=== PATIENT | male | born 1955 | race Caucasian/White ===

== ENCOUNTER 2025-05-28 10:24 | Outpatient (AMB) | payer MEDICARE, SELFPAY ==
--- NOTE | 2025-05-28 10:35 | A.OFFVIS_ITS ---
Intake Visit Reasons: 6m Allergies simvastatin Allergy (Unknown, Verified 05/21/25 08:20) Unknown HPI Comments Details: 70 yo man with colorectal cancer, and h/o bladder cancer treated with chemo many years ago. After chemotherapy, he developed painful neuropathy with symptoms of cramping and stabbing severe pain all over his body. He has been taking baclofen and gabapentin for control of symptoms. He also was prescribed clonazepam for a sleep disorder and carbidopa/levodopa for head bobbing. He was getting these prescriptions from Dr. Lopez before he retired. Dr. Lopez also treated headaches with Botox but the injections were done in right SCM and left splenius capitis area (like for cervical dystonia). 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 HEENT:?No headache, vision changes, hearing loss, nasal congestion, sore throat. Neurological:?No dizziness, syncope, seizures, numbness, tingling, weakness, tremors, memory loss. Psychiatric:?No anxiety, depression, mood swings, sleep disturbance, or hallucinations. Endocrine:?No heat/cold intolerance, polydipsia, polyuria, or hair/skin changes. Hematologic/Lymphatic:?No easy bruising, bleeding, or lymphadenopathy. Integumentary (Skin):?No rash, lesions, itching, or color changes. ? 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
--- OUTSIDE RECORDS SUMMARY | 2025-05-28 11:04 | XMS_ITS | Clinical Summary ---
Author Organization [facility] Address [address] [address] Phone Care Team Providers Care Machine Deburrer Name Role Phone Ken Mendenhall MD Primary Care Provider Allergies Active Allergy Reactions Criticality Noted Date Comments Simvastatin Musculoskeletal Pain 02/11/2018 Stiffness Medications gabapentin (NEURONTIN) 300 MG capsule Take 300 mg by mouth 2 (two) times a day. Active carbidopa-levodopa (SINEMET) 25-100 mg per tablet Take 1 tablet by mouth 3 (three) times a day. Active baclofen (LIORESAL) 20 MG tablet Take 20 mg by mouth 2 (two) times a day. Active clonazePAM (KLONOPIN) 0.5 MG tablet Take 1 tablet by mouth nightly at bedtime as needed. Active cyanocobalamin (VITAMIN B-12) 1,000 mcg/mL injection Inject 1 mL under the skin every 30 (thirty) days. Active febuxostat (ULORIC) 40 mg tablet Take 40 mg by mouth daily. 05/25/20 23 Active ondansetron (ZOFRAN-ODT) 8 MG disintegrating tablet Take 8 mg by mouth every 8 (eight) hours as needed. Active potassium citrate-citric acid (CYTRA-K) 1,100-334 mg/5 mL solution Take 20 mEq by mouth. 30 cc, daily 08/05/20 23 Active rosuvastatin (CRESTOR) 10 MG tablet Take 10 mg by mouth daily. Active oxyCODONE 5 MG immediate release tablet Take 1 tablet (5 mg total) by mouth every 6 (six) hours as needed (severe or breakthrough pain). 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 Not on karo e 06/18/2023 Are you concerned about learning? Not on file 06/18/2023 No 06/18/2023 No 06/18/2023 Digital Access Answer Date Recorded No 06/18/2023 No 06/18/2023 Reliable internet access at home? Not on file 06/18/2023 Device with a working camera? Not on file Intimate Partner Violence Answer Date R ecorded Are you denied basic needs s uch as food, clothing, or medical care? No 12/27/2023 In the past 12 months have y ou been in a relationship with a person who hurts, threatens, or tries to control you? No 12/27/2023 Are you denied basic needs s uch as food, clothing, or medical care? No 12/27/2023 In the past 12 months have y ou been in a relationship with a person who hurts, threatens, or tries to control you? No 12/27/2023 Sex and Gender Information Value Date Recorded Sex Assigned at Male 06/15/2023 10:00 AM EDT Legal Sex Male 9:57 AM EDT Gender Identity Male 06/15/2023 10:00 AM EDT Sexual Orientation Straight 06/15/2023 10 :00 AM EDT Last Filed Vital Signs Vital Sign Reading Time Taken Comments Blood Pressure 142/83 03/09/2024 11:24 AM EDT Pulse 74 03/09/2024 11:24 AM EDT Temperature 36.6 C (97.8 F) 01/11/2024 1:29 PM EDT Respiratory Rate 14 03/09/2024 11:24 AM EDT Oxygen Saturation 100% 03/09/2024 11:24 AM EDT Inhaled Oxygen Concentration - - Weight 63.6 kg (140 lb 4.8 oz) 03/09/2024 11:24 AM EDT Height 167.6 cm (5' 6 ) 03/09/2024 11:24 AM EDT Body Mass Index 22.65 03/09/2024 11:24 AM EDT Plan of Treatment Health Maintenance Due Date Last Done Comments SMOKING Hx and SMOKELESS TOBACCO SCREENING 1970 HEPATITIS C SCREENING 1975 COLOGUARD 2002 FIT TEST 2002 FOBT 2002 SIGMOIDOSCOPY 2002 VIRTUAL COLONOSCOPY 2002 COVID-19 VACCINE ( season) 2024 07/26/2023, 03/26/2022, 09/25/2021, Additional history exists DEPRESSION SCREENING 07/22/2024 07/22/2023 LIPID PANEL 11/15/2029 11/15/2024, 08/09/2024 RSV VACCINE (1 - 1-dose 75+ series) 02/25/2032 Adult Td,Tdap Booster 11/03/2032 11/03/2022, 011 COLONOSCOPY 12/07/2033 12/07/2023 COLORECTAL CANCER SCREENING 12/07/2033 PNEUMOCOCCAL VACCINES (50+ years) Completed 11/03/2022 ABDOMINAL AORTIC ANEURYSM (AAA) SCREENING Completed 03/17/2023 ZOSTER VACCINES Completed 10/30/2023, 11/0 05/2023, 06/08/2017 HEPATITIS A VACCINES Aged Out No long er eligible based on patient's age to complete this topic HIB VACCINES Aged Out No longer eligi ble based on patient's age to complete this topic MENINGOCOCCAL VACCINES (ACWY) Aged Out No longer eligible based on patient's age to complete this topic MENINGOCOCCAL VACCINES (B) Aged Out N o longer eligible based on patient's age to complete this topic Medical Devices Implanted Type Area Nursing Services Manager Device Identifier Shelf Expiration Date Model / Serial / Lot Plate Neck-Cervical Procedures Procedure Name Priority Date/Time Associated Diagnosis Comments ENDOSCOPY, COLON 12/07/2023 7:[address] ABDOMEN/PELVIS OUTSIDE WITH INTERPRETATION OR CONSULT Routine 03/17/2023 12:00 AM EDT from Last 3 Months or Most Recently Relevant to Health Maintenance Results * ENDOSCOPY, COLON (12/07/2023 7:22 AM EST) 12/07/2023 7:22 AM EST Narrative Transcriptions Omaira Morales MD - 12/07/2023 7:22 AM EST 850 Gastroenterology Patient Name: Nic Worley Procedure Date: 12/07/2023 7:22 AM Date of : 1955 Age: 68 Room: 03 Gender: Male Note Status: Finalized Attending MD: OMAIRA MORALES MD Procedure: Colonoscopy Indications: High risk colon cancer surveillance: Personal history of rectal cancer. Hx of total neoadjuvant therapy. Here for evaluation to the therapy. Providers: OMAIRA MORALES MD, Daniel Amado RN Referring MD: Lexie Martinez (Referring MD) Medicines: Monitored Anesthesia Care Complications: No immediate complications. Procedure: Pre-Anesthesia Assessment: - All questions were answered and informed consent was obtained. - ASA Grade Assessment: II - A patient with mild systemic disease. - Airway Examination: Mallampati Class II (the uvula but not tonsillar pillars visualized). After informed consent was obtained, the scope was passed under direct vision. Throughout the procedure, the patient's blood pressure, pulse, and oxygen saturations were monitored continuously. The Colonoscope was introduced through the anus and advanced to the cecum, identified by appendiceal orifice and ileocecal valve. The colonoscopy was performed without difficulty. The patient tolerated the procedure well. The quality of the bowel preparation was good. Findings: The digital rectal exam findings include palpable rectal mass. A 4 mm polyp was found in the appendiceal orifice. The polyp was sessile. The polyp was removed with a cold biopsy forceps. Resection and retrieval were complete. A 6 mm polyp was found in the mid transverse colon. The polyp was sessile. The polyp was removed with a cold snare. Resection and retrieval were complete. An ulcerated non-obstructing medium-sized mass was found in the distal rectum. The mass was non-circumferential. The mass measured four cm in length. In addition, its diameter measured four mm. No bleeding was present. This was biopsied with a cold forceps for histology. The exam was otherwise without abnormality. Impression: - Palpable rectal mass found on digital rectal exam. - One 4 mm polyp at the appendiceal orifice, removed with a cold biopsy forceps. Resected and retrieved. - One 6 mm polyp in the mid transverse colon, removed with a cold snare. Resected and retrieved. - Likely malignant tumor in the distal rectum. Biopsied. - The examination was otherwise normal. Recommendation: - Discharge patient to home (ambulatory). - Await pathology results. If positive, will discuss surgery. Omaira Morales MD [id number] OMAIRA MORALES MD 12/07/2023 8:14:23 AM This report has been signed electronically. Number of Addenda: 0 Note Initiated On: 12/07/2023 7:22 AM [facility] Dangelo Martinez MD GI PROCEDURE ORDERABLES Final Result * CT Abdomen/Pelvis Outside with Interpretation or Consult (03/17/2023 12:00 AM EDT) 07/27/2023 10:5 3 AM EDT [facility] - 07/27/2023 10:54 AM EDT OUTSIDE STUDY SECOND OPINION CONSULTATION This examination was performed at an outside institution and uploaded into [facility] P[facility]. We were requested to provide an interpretation, but because a more recent PET/CT from 05/26/2023 and pelvic MRI from 05/04/2023 have been submitted for second opinion reviewed, this outside exam will not be formally interpreted. Procedure Note Aleisha Irby MD, PhD - 07/27/2023 OUTSIDE STUDY SECOND OPINION CONSULTATION This examination [facility] an [facility]. We were requested to provide an interpretation, butbecause a more recent PET/CT from 05/26/2023 and pelvic MRI from 05/04/2023have been submitted for second opinion reviewed, this outside exam willnot be formally interpreted. us Omaira Morales MD IMG OUTSIDE IMAGING W/ INTERPRE TATION Final Result [facility] [address] [place] [address] from Last 3 Months or Most Recently Relevant to Health Maintenance Insurance [facility] MEDEX SUPPLEMENT MEDICARE PART A & B [facility] MEDEX SUPPLEMENT MEDICARE PART A & B [facility] MEDEX SUPPLEMENT MEDICARE PART A & B [facility] MEDEX SUPPLEMENT MEDICARE PART A & B [facility] MEDEX SUPPLEMENT MEDICARE PART A & B [employer] MEDEX SUPPLEMENT MEDICARE PART A & B Advance Directives For more information, please contact: [phone] (9AM - 5PM [facility], Wednesday-Wednesday) Documents on File Type Date Recorded Patient Special Agent Group Insurance Expl anation Healthcare Proxy 01/04/2024 11:48 AM * Full Code (Latest Code Status on File) Date Activated Date Inactivated Comments 12/28/2023 1:04 AM Question Answer Comments Code Status Confirmed With: Patient Care Teams Machine Deburrer Relationship Specialty Start Date End Date Ken Mendenhall MD [address] [place] [id number] PCP - General Internal Medicine 07/25/24 Additional Source Comments The information contained in this document represents components of the legal health record. It is not the complete legal health record.[facility]
--- OUTSIDE RECORDS SUMMARY | 2025-05-28 11:04 | XMS_ITS | Encounter Summary ---
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, CMS/HCC V28); Chronic metabolic acidosis; Other artificial openings of urinary tract status (CMS/HCC V24, CMS/HCC V28); Malignant neoplasm of rectum (CMS/HCC V24, CMS/HCC V28); 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; Gout, unspecified; Other disorders of electrolyte and fluid balance, not elsewhere classified; Unspecified hydronephrosis; Acute kidney failure, unspecified (CMS/HCC V24) Social History Tobacco Use Types Packs/Day Years Used Date Smoking Tobacco: Never Passive Smoke Exposure: Never Smokeless Tobacco: Never Alcohol Use Standard Drinks/Week Comments Yes 3 (1 standard drink = 0.6 oz pur e alcohol) 5 x a week Comments Unknown Sex and Gender Information Value Date Recorded Sex Assigned at Female 09/08/2024 1:25 PM EST Legal Sex Male 6:08 AM EST Gender Identity Female 09/08/2024 1:25 PM EST Sexual Orientation Straight 09/08/2024 1: 25 PM EST documented as of this encounter Plan of Treatment Upcoming Encounters Date Type Department Care Team (Late st Contact Info) Description 06/11/2025 10:30 AM EDT Appointment [facility] CT Scan [address] [place] [phone] 07/04/2025 10:15 AM EDT Office Visit [facility] Hematology Oncology [address] [place] [phone] Jarrod Conn MD [address] [place] [phone] documented as of this encounter Procedures Procedure Name Priority Date/Time Associated Diagnosis Comments STONE ANALYSIS Routine 12/14/2024 12:00 AM EST Chronic kidney disease, stage 3b (CMS/HCC) Malignant neoplasm of unspecified ureter (CMS/HCC) Chronic metabolic acidosis Other artificial openings of urinary tract status (CMS/HCC) Malignant neoplasm of rectum (CMS/HCC) 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 Gout, unspecified Other disorders of electrolyte and fluid balance, not elsewhere classified Unspecified hydronephrosis Acute kidney failure, unspecified (CMS/HCC) documented in this encounter Results * Stone analysis (12/14/2024 12:00 AM EST) Component(s) See below 12/19/2024 9:00 PM EST [facility] Comment: 30% Carbonate apatite (Dahllite) 5% Ammonium urate 65% Ammonium-magnesium phosphate hexahydrate (Struvite) Stone Weight 0.2013 g 12/19/2024 9:00 PM EST [facility] Comment: This test was developed and its performance characteristics determined by [facility] in a manner consistent with CLIA requirements. This test has not been cleared or approved by the U.S. Food and Drug Administration. Test performed at [facility], [address], [place] [address] Catherine Donahue MD, PhD - Operations Inspector Calculus 12/14/2024 12/14/2024 12: 45 PM EST us Jean Rosas MD LAB BODY FLUIDS AND STOOLS ORDERABLES Final Result [facility] [address] 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
--- OUTSIDE RECORDS SUMMARY | 2025-05-28 11:04 | XMS_ITS | Encounter Summary ---
Author Organization [facility] Address [address] [place] [address] Care Team Providers Care Partner Manager Name Role Phone Leanna Torres MD Primary Care Provider Kira hager Encounter Details Date Type Department Care Team Description 08/24/2023 Social Work [facility] Oncology Services [address] [place] [phone] Miller Thompson, [employer] Social History Tobacco Use Types Packs/Day Years Used Date Smoking Tobacco: Former Smokeless Tobacco: Never Alcohol Use Standard Drinks/Week Comments Yes 0 (1 standard drink = 0.6 oz pur e alcohol) Sex and Gender Information Value Date Recorded Sex Assigned at Male 04/19/2023 2:25 PM EDT Gender Identity Not on file Sexual Orientation Not on file Job Start Date Occupation Industry Not on file Not on file Not on file documented as of this encounter Plan of Treatment Not on file documented as of this encounter Visit Diagnoses Not on filedocumented in this encounter Care Teams Partner Manager Relationship Specialty Start Date End Date Leanna Torres MD PCP - General Family Medicine 08/09/24 documented as of this encounter
--- OUTSIDE RECORDS SUMMARY | 2025-05-28 11:04 | XMS_ITS | Patient Health Record ---
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 Role Phone MYLES PAGE Unavailable [phone] BAUDILIO MENDENHALL Unavailable [phone] Allergies Allergen (clinical drug ingredient) Drug/Non Drug Allergy documented on EMR Reaction Allergy Type Onset Date Status simvastatin Simvastatin Unknown Drug Allergy Act rufus Results Component Value Reference Range Notes STONE ANALYSIS (Not yet revi ewed by provider) Interpretation: Performing Lab: Notes/Report: Component(s) See below 3% Calcium oxalate monohydrate (Whewellite) 10% Carbonate apatite (Dahllite) 87% Ammonium-magnesium phosphate hexahydrate (Struvite) Stone Weight 0.2540 This test was developed and its performance characteristics determined by [facility] in a manner consistent with CLIA requirements. This test has not been cleared or approved by the U.S. Food and Drug Administration. Test performed at [facility], [address], [place] [address] Catherine Donahue MD, PhD - Director Of Hospitality HEMOGLOBIN A1C Reviewed date:11/16/2024 12:02:35 PM Interpretation: Performing Lab: Notes/Report: Hemoglobin A1C 5.3 <6.5 % Mean Bld Glu Estim. 105 CALCIUM, URINE, RANDOM (Not yet reviewed by provider) Interpretation: Performing Lab: Notes/Report: Calcium, Ur <5.0 URIC ACID, URINE (Not yet re viewed by provider) Interpretation: Performing Lab: Notes/Report: Uric Acid, Ur 11.0 POCT CREATININE, BLOOD Reviewed date:03/15/2025 09:00:48 AM Interpretation: Performing Lab: Notes/Report: Creatinine POCT 1.6 eGFR 44 XR HAND 3+ VIEWS BILAT Reviewed date:03/05/2025 08:16:01 AM Interpretation: Performing Lab: Notes/Report: Note See Note [facility], a member of [employer] Patient Name: NIC FRAZIER Date of : 1955 Reason for Exam: hand pain Exam Date: 03/03/2025 [id number] EST Report Status: Final Ordering Provider: MYLES PAGE PCP: CHRISTA SWAN HISTORY: The patient is a 70-year-old male with bilateral hand pain. No history of trauma is provided. FINDINGS: AP, latera l, and oblique views of the right hand, along with AP, lateral, and oblique views of the left hand, are obtained. The study demonstrates no fracture or dislocation either hand. There is narrowing of the second distal interphalangeal joint bilaterally with marginal osteophytes, consistent with moderate osteoarthritis. There is also narrowing of the first carpal-metacarpal articulation bilaterally with small marginal osteophytes, consistent with moderate osteoarthritis. No soft tissue abnormality is seen. IMPRESSION: No acute findings. There is moderate osteoarthritis of the second distal interphalangeal joint bilaterally as well as of the first carpal-metacarpal articulation bilaterally. Code 03477, 59432 -------- FINAL REPOR T -------- Dictated By: Foreign Echeverria Dictated Date: 03/05/2025 07:58 ET Assigned Physician: Foreign Echeverria Reviewed and Electronically Signed By: Foreign Echeverria Signed Date: 025 08:01 ET Workstation ID: [id number] Transcribed By: Self Edit Transcribed Date: 03/05/2025 07:58 ET C REACTIVE PROTEIN, HIGH SEN SITIVITY Reviewed date:11/16/2024 12:03:21 PM Interpretation: Performing Lab: Notes/Report: CRP, High Sensitivity 2.46 Cardio CRP Relative Risk Categories Low <1.0 mg/L Average 1.0 - 3.0 mg/L High >3.0 mg/L Levels >10.0 mg/L should be ignored and repeated when the patient is stable and infection or inflammation is ruled out. HRT (estrogens) consistently increase cardio CRP levels. Risk estimates for women on HRT may need to be calibrated downward. URIC ACID (Not yet reviewed by provider) Interpretation: Performing Lab: Notes/Report: Uric Acid 3.3 3.7-9.2 mg/dL PHOSPHORUS (Not yet reviewed by provider) Interpretation: Performing Lab: Notes/Report: Phosphorus 2.0 2.5-4.5 mg/dL URINALYSIS WITH REFLEX MICRO SCOPIC (Not yet reviewed by provider) Interpretation: Performing Lab: Notes/Report: Specific [place] Urine 1.010 1.003-1.030 pH, Urine 7.5 5.0-8.0 pH Leukocytes, Urine Large Negative Nitrite, Urine Positive Negative Protein, Urine 30 <=Trace mg/dL Glucose, Urine Negative Negative mg/dL Ketones, Urine Negative Negative mg/dL Urobilinogen, Urine 0.2 0.2-1.0 mg/dL Bilirubin, Urine Negative Negative Blood, Urine Small Negative RBC, Urine 8.0 0-4 /HPF WBC, Urine 73.1 0-4 /HPF Squamous Epithelial, Urine 12 0-60 /LPF Bacteria, Urine Many Negative /HPF Hyaline Casts, Urine 5.0 0-3 /LPF IRON AND TIBC Reviewed date:05/17/2025 11:36:11 AM Interpretation: Performing Lab: Notes/Report: Iron 115 50-160 mcg/dL TIBC 386 250-450 mcg/dL Iron Saturation 30 20-50 % PROTEIN AND CREATININE WITH RATIO, URINE (Not yet reviewed by provider) Interpretation: Performing Lab: Notes/Report: Protein, Urine 42 Prot/Creat, Ur 0.69 <=0.20 mg/mg creat Creatinine, Urine 61.0 PARATHYROID HORMONE INTACT ( Not yet reviewed by provider) Interpretation: Performing Lab: Notes/Report: PTH 97.6 18.5-88.0 pcg/mL COMPREHENSIVE METABOLIC PANE L Reviewed date:11/16/2024 12:02:59 PM Interpretation: Performing Lab: Notes/Report: Sodium 138 133-145 mmol/L Potassium 4.0 3.5-5.5 mmol/L Chloride 109 96-110 mmol/L CO2 26 21-32 mmol/L Anion Gap 3 3-11 Glucose 84 70-100 mg/dL BUN 31 5-25 mg/dL Creatinine 1.65 0.50-1.30 mg/dL eGFR 34 >=60 mL/min/1.73m2 For non-binary individuals or unknown sex, the equation for female sex is used to calculate the estimated glomerular filtration rate (eGFR). Calculation based on the?Chronic Kidney Disease Epidemiology Collaboration (CKD-EPI) equation refit?without adjustment for race. BUN/Creatinine Ratio 18.8 Calcium 8.6 8.5-10.5 mg/dL AST (SGOT) 24 10-42 unit/L ALT (SGPT) 14 10-60 unit/L Alkaline Phosphatase 90 42-121 unit/L Total Protein 7.1 6.0-8.0 g/dL Albumin 3.7 3.2-5.0 g/dL Total Bilirubin 0.4 0.0-1.4 mg/dL COMPREHENSIVE METABOLIC PANE L (Not yet reviewed by provider) Interpretation: Performing Lab: Notes/Report: Sodium 137 133-145 mmol/L Potassium 6.3 3.5-5.5 mmol/L Chloride 105 96-110 mmol/L CO2 30 21-32 mmol/L Anion Gap 2 3-11 Glucose 81 70-100 mg/dL BUN 30 5-25 mg/dL Creatinine 1.83 0.50-1.30 mg/dL eGFR 30 >=60 mL/min/1.73m2 For non-binary individuals or unknown sex, the equation for female sex is used to calculate the estimated glomerular filtration rate (eGFR). Calculation based on the Chronic Kidney Disease Epidemiology Collaboration (CKD-EPI) equation refit without adjustment for race. BUN/Creatinine Ratio 16.4 Calcium 9.1 8.5-10.5 mg/dL AST (SGOT) 25 10-42 unit/L ALT (SGPT) 11 10-60 unit/L Alkaline Phosphatase 102 42-121 unit/L Total Protein 7.1 6.0-8.0 g/dL Albumin 3.5 3.2-5.0 g/dL Total Bilirubin 0.4 0.0-1.4 mg/dL MAGNESIUM (Not yet reviewed by provider) Interpretation: Performing Lab: Notes/Report: Magnesium 2.4 1.9-2.6 mg/dL VITAMIN D 25 HYDROXY (Not ye t reviewed by provider) Interpretation: Performing Lab: Notes/Report: Vit D, 25-Hydroxy 23.6 30.0-80.0 ng/mL CBC WITH AUTO DIFFERENTIAL Reviewed date:05/16/2025 04:21:59 PM Interpretation: Performing Lab: Notes/Report: WBC 5.4 4.8-10.8 K/mcL RBC 4.00 3.80-5.50 M/mcL Hemoglobin 12.4 12.0-18.0 g/dL Hematocrit 38.5 36.0-48.0 % MCV 96.0 79.0-98.0 FL MCH 30.9 27.0-32.0 pcg MCHC 32.2 32.0-37.0 g/dL RDW 12.8 11.0-15.0 % Platelets 196 130-400 K/mcL MPV 9.5 7.0-11.0 FL NRBC 0.0 <1.0 % NRBC Absolute 0.00 <0.10 K/mcL Neutrophils Relative 74.3 Lymphocytes Relative 9.9 Monocytes Relative 10.4 Eosinophils Relative 4.1 Basophils Relative 0.7 Immature Granulocytes Relative 0.6 Neutrophils Absolute 3.99 1.50-7.00 K/mcL Lymphocytes Absolute 0.53 1.00-5.00 K/mcL Monocytes Absolute 0.56 0.20-1.00 K/mcL Eosinophils Absolute 0.22 0.00-0.50 K/mcL Basophils Absolute 0.04 0.00-0.20 K/mcL Immature Granulocytes Absolute 0.03 0.00-0.03 K/mcL CBC WITH AUTO DIFFERENTIAL Reviewed date:11/16/2024 12:38:36 PM Interpretation: Performing Lab: Notes/Report: WBC 4.9 4.8-10.8 K/mcL RBC 4.00 3.80-5.50 M/mcL Hemoglobin 12.3 12.0-18.0 g/dL Hematocrit 38.5 36.0-48.0 % MCV 96.0 79.0-98.0 FL MCH 30.7 27.0-32.0 pcg MCHC 31.9 32.0-37.0 g/dL RDW 15.4 11.0-15.0 % Platelets 224 130-400 K/mcL MPV 9.1 7.0-11.0 FL NRBC 0.0 <1.0 % NRBC Absolute 0.00 <0.10 K/mcL Neutrophils Relative 72.5 Lymphocytes Relative 10.5 Monocytes Relative 11.1 Eosinophils Relative 4.3 Basophils Relative 1.0 Immature Granulocytes Relative 0.6 Neutrophils Absolute 3.54 1.50-7.00 K/mcL Lymphocytes Absolute 0.51 1.00-5.00 K/mcL Monocytes Absolute 0.54 0.20-1.00 K/mcL Eosinophils Absolute 0.21 0.00-0.50 K/mcL Basophils Absolute 0.05 0.00-0.20 K/mcL Immature Granulocytes Absolute 0.03 0.00-0.03 K/mcL CT LOWER EXTREMITY W CONTRAS T LEFT Reviewed date:03/16/2025 09:30:49 AM Interpretation: Performing Lab: Notes/Report: Note See Note [facility], a member of [facility] Patient Name: NIC FRAZIER Date of : 1955 Reason for Exam: CT Left Hip for left hip pain; History of colorectal cancer; Bladder carcinoma Exam Date: 03/15/2025 [id number] EST Report Status: Final Ordering Provider: MYLES PAGE PCP: SILVIO MENDENHALL EXAM: CT LOWER EXTREMITY W CONTRAST LEFT CLINICAL INFORMATION: CT Left Hip for left hip pain; History of colorectal cancer; Bladder carcinoma COMPARISON: No relevant comparis on imaging exam available. TECHNIQUE: Multidetector CT imaging examination of the left hip was performed. Axial images as well as sagittal and coronal reformatted images are reviewed. CT imaging is performed using dose optimization techniques when appropriate, variously including the following: automated exposure control; adjustment of mA and/or kV according to patient size; use of iterative reconstruction technique. Contrast material: 6 5 mL of Isovue-370 given intravenously. FINDINGS: The visualized left pelvic bones and proximal femur are intact. The femoral head is well-positioned within the acetabulum. There is narrowing of joint space, subchondral cystic change and osteophyte formation of the moderately degenerated hip. No hip joint effusion or pericapsular fluid collection. A 3.4 x 5.2 x 5.1 cm collection of fluid along the surface of the iliotibial band lateral to the hip has density of 20-25 Hounsfield units and has a 0.2- 0.3 cm thick border. There is edema of the overlying subcutaneous tissues. No soft tissue gas or radiopaque foreign body in this area. The gluteus minimus and medius tendons have grossly intact insertions on the greater trochanter. The iliopsoas tendon has an intact insertion on the lesser trochanter and there is no iliopsoas bursitis. The left knee is excluded from the [id number]. A small amount of fluid is visible within the suprapatellar compartment of the knee joint. No evidence of left iliac or inguinal lymphadenopathy. Mild atherosclerosis of the left external iliac and femoral artery without focal stenosis or occlusion. IMPRESSION: * Moderate osteoarthritis of the left hip. * No evidence of metastatic disease in the visualized left pelvis or femur. * The observation of a circumscribed fluid collection along the surface of the iliotibial band requires clinical correlation. This could represent a relatively subacute or old liquefied hematoma (if there was fall/trauma to the lateral hip). The edema of the overlying subcutaneous tissues could be from trauma or inflammation. No soft tissue gas in this area. The collection could be aspirated if there is clinical suspicion of an infected collection. Report reviewed and signed by : Dr. Satya Bates on 03/15/2025 11:00 AM. Workstation Name - [id number] -------- FINAL REPOR T -------- Dictated By: Satya Btaes Dictated Date: 03/15/2025 10:49 ET Assigned Physician: Satya Bates Reviewed and Electronically Signed By: Satya Bates Signed Date: 025 11:00 ET Workstation ID: [id number] Transcribed By: Self Edit Transcribed Date: 03/15/2025 10:50 ET VITAMIN B12 Reviewed date:11/16/2024 07:57:25 AM Interpretation: Performing Lab: Notes/Report: Vitamin B-12 425 250-900 pcg/mL PROSTATE SPECIFIC ANTIGEN SC REEN Reviewed date:11/16/2024 07:57:25 AM Interpretation: Performing Lab: Notes/Report: The Siemens Advia Centaur Chemiluminescent Immunoassay is used. Results obtained with different assay methods or kits cannot be used interchangeably. Results cannot be interpreted as absolute evidence of the presence or absence of malignant disease. PSA <0.06 0.00-4.00 ng/mL MICROALBUMIN CREATININE URIN E RATIO Reviewed date:11/16/2024 12:02:43 PM Interpretation: Performing Lab: Notes/Report: Creatinine, Urine 56.0 Microalb, Ur 72.5 0.0-29.0 mg/L Microalb/Creat Ratio 129 <30 mg/g creat THYROID STIMULATING HORMONE Reviewed date:11/16/2024 07:58:53 AM Interpretation: Performing Lab: Notes/Report: TSH 1.99 0.40-4.00 mcIU/mL VITAMIN D 25 HYDROXY Reviewed date:11/16/2024 12:02:43 PM Interpretation: Performing Lab: Notes/Report: Vit D, 25-Hydroxy 28.0 30.0-80.0 ng/mL LIPID PANEL WITH REFLEX TO D IRECT LDL Reviewed date:11/16/2024 12:03:21 PM Interpretation: Performing Lab: Notes/Report: Cholesterol 240 0-200 mg/dL Triglycerides 146 0-150 mg/dL HDL 58 >=40 mg/dL LDL Calculated 153 0-100 mg/dL VLDL Cholesterol Bright 29.2 Non HDL Chol. (LDL+VLDL) 182 <145 mg/dL Chol/HDL Ratio 4.1 0.0-4.4 POTASSIUM Reviewed date:05/21/2025 08:06:48 AM Interpretation: Performing Lab: Notes/Report: Potassium 4.7 3.5-5.5 mmol/L Reason For Referral Reason NEOS Diagnosis 1 Lower extremity katarina a (R60.0) Diagnosis 2 Other ascites (R18.8 ) [facility] Referring Provider First Name MYLES Referring Provider Last Name KAYLEE Referring Provider Speciality Internal M edicine Referred Provider Specialty Orthopedic S urgery General Notes LAURA ONEILL 0 03/16/2025 09:29:41 AM >information sent over to Marjorie Larsen, [phone], [phone]- [phone] Clinical Notes Jamshid Parsons 02:44:55 PM > refaxed to [phone], Jamshid Parsons 03/22/2025 11:23:42 AM >, LAURA ONEILL 03/22/2025 03:24:56 PM >Info sent to Kirk Michael, [address] [place] [address], p [phone], f [phone], LAURA ONEILL 03/28/2025 02:43:27 PM >Patient would rather go to [facility] for this referral, LAURA ONEILL 04/11/2025 12:01:47 PM >Patient is going to call [facility] for the appointment- since they have not reached out Referral Priority Stat Reason NEOS Diagnosis 1 Mass of left hip reg ion (R22.42) Referral Organization [facility] [address] Referring Provider First Name MYLES Referring Provider Last Name KAYLEE Referring Provider Speciality Internal M edicine Referred Provider Specialty Orthopedic S urgery General Notes LAURA ONEILL 0 04/17/2025 12:45:54 PM >resent with correct DX Clinical Notes faxed to [facility] with d x of hip mass with referral form over as stat, LAURA ONEILL 05/09/2025 10:44:35 AM >p- , [phone], Ravi Moreno 05/10/2025 03:44:43 PM > spoke with bebe Delatorre. booked on Jun 19 at 8:30AM Referral Priority Stat Medications Medication SIG (Take, Route, Frequency, Duration) Notes Start Date End Date Status Pregabalin 150 MG 1 capsule Orally Twice a day Active Vitamin D 125mcg once a day Active Sinemet 10-100 MG 1 tablet Orally Three times a day Active clonazePAM 0.5 MG 1 tablet Orally Once a day Active Carbidopa-Levodopa 10-100 MG 1 tablet Orally Three times a day Active Rosuvastatin Calcium 10 MG half a 10mg orally once a day Orally Once a day Active Febuxostat 40 MG 1 tablet Orally Once a day Active Baclofen 20 MG 1 tablet Administer without regards to meals as needed Orally three times a day 08/16/2024 Active Social History Tobacco Use: Social History Observation Description Date Details (start date - stop date) Former Smoker NA - NA Tobacco Use/Smoking Question Answer Notes Are you a former smoker How long has it been since you last smoked? > 10 years Section Notes: Smoke: Declines ETOH: Occassional, rare Smoke: Declines ETOH: Occassional, rare Smoke: Declines ETOH: Occassional, rare Smoke: Declines ETOH: Occassional, rare Problems Problem Type SNOMED Code ICD Code Onset Dates Problem Status W/U Status Risk Notes Problem Vitamin D deficiency (21223021) Vitamin D deficiency, unspecified (E55.9) Active confirmed Problem Pain in right hand (107799540001990) Pain in right hand (M79.641) Active confirmed Problem Pain in limb (88742403) Pain in left hand (M79.642) Active confirmed Problem Ascites (417243211) Other ascite s (R18.8) Active confirmed Problem Abnormal blood pressure (19597039) Encounter for examination of blood pressure with abnormal findings (Z01.31) Active confirmed Problem Lipid screening (258467825) Encounter for screening for lipoid disorders (Z13.220) Active confirmed Problem Adult health examination (880593280) Adult general medical exam (Z00.00) Active confirmed Problem Kidney stone (02039472) Kidney stone (N20.0) Active confirmed Problem Arthralgia of the pelvic region and thigh (595663282) Hip pain, left (M25.552) Active confirmed Problem High cholesterol (67179162) High cholesterol (E78.00) Active confirmed Problem Diabetes mellitus screening (849543331) Diabetes mellitus screening (Z13.1) Active confirmed Problem Nephrolithiasis (28624134) Nephrolithiasis (N20.0) Active confirmed Problem Vitamin B>12< deficiency anaemia (27151507) Anemia due to vitamin B12 deficiency, unspecified B12 deficiency type (D51.9) Active confirmed Problem hypercholesterolemia (disorder) (37005978) Hypercholesteremia (E78.00) Active confirmed Problem History of anemia (187905483) History of anemia (Z86.2) Active confirmed Problem Malignant tumor of urinary bladder (643846773) Bladder carcinoma (C67.9) Active confirmed Problem Endocrine/metabolic screening (094657591) Encounter for screening for endocrine disorder (Z13.29) Active confirmed Problem Abnormal metabolic state due to diabetes mellitus (955973007) Abnormal metabolic state due to diabetes mellitus (E11.9) Active confirmed Problem Screening for malignant neoplasm of prostate (540086923) Encounter for prostate cancer screening (Z12.5) Active confirmed Problem Colorectal cancer (6272911452) Colorectal cancer (C19) Active confirmed Problem C-reactive protein abnormal (831946718) CRP elevated (R79.82) Active confirmed Problem Anemia (813153273) Anemia (D64.9) Active confir med Problem Personal history of primary malignant neoplasm of urinary bladder (193898190) Hx of bladder cancer (Z85.51) Active confirmed Problem History of colorecta l cancer (6824190525) History of colorectal cancer (Z85.048) Active confirmed Vital Signs Heart Rate 68 /min 04/17/2025 Temperature 98.8 degrees Fahrenheit 03/06/2025 Oximetry 94 % 04/17/2025 Blood pressure diastolic 76 mm Hg 04/17/2025 Height 66 in 04/17/2025 Blood pressure systolic 128 mm Hg 04/17/2025 Weight 168.1 lbs 04/17/2025 BMI 27.13 kg/m2 04/17/2025 Encounters Encounter Location Date Provider Diagnosis [facility] 08/16/2024 MYLES KAYLEE Hx of bladder cancer Z85.51 ; History of colorectal cancer Z85.048 ; High cholesterol E78.00 ; Parkinsonian features R29.818 ; History of anemia Z86.2 and Kidney stone N20.[address] 09/18/2024 MYLES KAYLEE Hx of bladder cancer Z85.51 ; History of colorectal cancer Z85.048 ; High cholesterol E78.00 ; Parkinsonian features R29.818 ; History of anemia Z86.2 and Kidney stone N20.[address] [address] 11/21/2024 MYLES KAYLEE Encounter for screen ing for depression Z13.31 ; Adult general medical exam Z00.00 ; Encounter for screening for other disorder Z13.89 ; Other specified counseling Z71.89 ; Hypercholesteremia E78.00 ; Bladder carcinoma C67.9 ; Colorectal cancer C19 ; Anemia D64.9 and Nephrolithiasis N20.[address] [address] 02/20/2025 MYLES KAYLEE Pain in right hand M 79.641 ; Pain in left hand M79.642 ; Hypercholesteremia E78.00 ; Nephrolithiasis N20.0 ; Bladder carcinoma C67.9 ; Colorectal cancer C19 and Anemia D64.[address] [address] 03/06/2025 MYLES KAYLEE Pain in right hand M 79.641 ; Hip pain, left M25.552 ; Pain in left hand M79.642 ; Hypercholesteremia E78.00 ; Nephrolithiasis N20.0 ; Bladder carcinoma C67.9 ; Colorectal cancer C19 ; Anemia D64.9 and Encounter for examination of blood pressure with abnormal findings Z01.[address] [place] [address] 04/17/2025 MYLES KAYLEE Pain in right hand M 79.641 ; Hip pain, left M25.552 ; Pain in left hand M79.642 ; Hypercholesteremia E78.00 ; Nephrolithiasis N20.0 ; Bladder carcinoma C67.9 ; Colorectal cancer C19 ; Anemia D64.9 ; Encounter for examination of blood pressure with abnormal findings Z01.31 and Fatigue, unspecified type R53.83 [facility] [address] [address] 08/16/2024 MYLES KAYLEE [facility] [address] 08/16/2024 MYLES KAYLEE [facility] [address] 11/22/2024 MYLES KAYLEE [facility] [address] 02/14/2025 TALAL MENDENHALL [facility] [address] [place], [place] 03/06/2025 MYLES KAYLEE [facility] [address] 03/07/2025 MYLES KAYLEE [facility] [address] [place], [place] 03/07/2025 MYLES KAYLEE [facility] [address] [place], [place] 03/08/2025 MYLES KAYLEE Hip pain, left M25.5 52 ; Bladder carcinoma C67.9 and History of colorectal cancer Z85.[address] [place], [place] 03/09/2025 MYLES KAYLEE [facility] [address] [address] 03/22/2025 MYLES KAYLEE [facility] [address] 04/02/2025 MYLES KAYLEE [facility] [address] [place] [address] 05/16/2025 MYLES PAGE Hypercholesteremia E 78.00 Assessments Encounter Date Diagnosis (ICD Code) Assessment Notes Treatment Notes Treatment Clinical Notes Section Notes 08/16/2024 Hx of bladder cancer (ICD-10 - Z85.51) Nic is a 69-year-old male who presents to the office today for new patient evaluation. Patient is welcomed to the practice. They are coming from [facility]. Last complete physical exam with labs unknown.medications, medical history, allergies, surgeries, hospitalizations, family history, and social history were reviewed. Problem list updated. Cardiopulmonary and abdominal exam unremarkable. Patient will follow-up in office. All patient questions answered at this time. Patient is medically complex, I do not have the specialist notes at this time, will request them. #Hx Bladder cancer: Patient follows with urology, Dr. Jordan and Dr. Godwintena [facility]. Patient had a urostomy placed in 2008. Admits that he is cancer free. Patient states that he follows with the specialist regularly # Hx Colorectal cancer: Patient had a colostomy bag placed in December. Patient states that the surgery was completed by Carter Morales MD at [facility]. Patient states that he is unsure of whether or not he will be obtaining future colonoscopies, has an appointment coming up is unsure of the date. Additionally patient states that he is following with MONIQUE Rothman from [place]. #Parkinsonian syndrome: Patient is on carbidopa-levodopa 10-500 mg tablet orally 3 times a day. Patient states that he was began on this medication by his previous neurologist due to a side effect from chemotherapy. Patient has an appointment on August 28 at [facility] with Dr. Ibrahim. #Kidney stones: Patient had a nephrostomy placed in December 2023, he has had it replaced every 3 months. Patient states that he sees Dr. Angela Guevara for nephrology. Patient states that his last reported GFR was over 50%. Reports that his right kidney is completely atrophied and is no longer working. Patient states that he is unsure whether or not he is a candidate for kidney transplant. #High cholesterol: Patient states that he is taking rosuvastatin 10 mg daily, states that this was previously monitored by his previous primary care provider. I will order labs to ensure he has a sufficient values. #Gout: Patient states that he is on Febuxostat for his gout. Patient has not admitted to any pain in her joints today, or inflammation. #Anemia: Patient is currently taking iron supplements once daily. I will order a CBC to ensure his hemoglobin and hematocrit are within normal limits. All questions have been answered to patient's satisfaction. Patient verbalized understanding of diagnosis and treatments explained. Advised to call sooner prior to next visit it any questions/concerns arise. Case discussed with collaborating physician Lebron Mendenhall who reviewed the assessment and plan. Chart, medications, labs, vital signs reviewed. Dictation was accomplished with the use of [employer] voice recognition software, which is prone to medical misidentifications and grammatical errors. This are unintentional and the practitioner does try to identify and correct these, but some could still be present. Please do not hesitate to contact practitioner for clarification. 08/16/2024 History of colorectal cancer (ICD-10 - Z85.048) Nic is a 69-year-old male who presents to the office today for new patient evaluation. Patient is welcomed to the practice. They are coming from [facility]. Last complete physical exam with labs unknown.medications, medical history, allergies, surgeries, hospitalizations, family history, and social history were reviewed. Problem list updated. Cardiopulmonary and abdominal exam unremarkable. Patient will follow-up in office. All patient questions answered at this time. Patient is medically complex, I do not have the specialist notes at this time, will request them. #Hx Bladder cancer: [facility] in [facility]. Admits that he is cancer free. Patient states that he follows with the specialist regularly # Hx Colorectal cancer: Patient had a colostomy bag placed in December. Patient states that the surgery was completed by Carter Morales MD at [facility]. Patient states that he is unsure of whether or not he will be obtaining future colonoscopies, has an appointment coming up is unsure of the date. Additionally patient states that he is following with MONIQUE Rothman from [place]. #Parkinsonian syndrome: Patient is on carbidopa-levodopa 10-500 mg tablet orally 3 times a day. Patient states that he was began on this medication by his previous neurologist due to a side effect from chemotherapy. Patient has an appointment on August 28 at [facility] with Dr. Ibrahim. #Kidney stones: Patient had a nephrostomy placed in December 2023, he has had it replaced every 3 months. Patient states that he sees Dr. Angela Guevara for nephrology. Patient states that his last reported GFR was over 50%. Reports that his right kidney is completely atrophied and is no longer working. Patient states that he is unsure whether or not he is a candidate for kidney transplant. #High cholesterol: Patient states that he is taking rosuvastatin 10 mg daily, states that this was previously monitored by his previous primary care provider. I will order labs to ensure he has a sufficient values. #Gout: Patient states that he is on Febuxostat for his gout. Patient has not admitted to any pain in her joints today, or inflammation. #Anemia: Patient is currently taking iron supplements once daily. I will order a CBC to ensure his hemoglobin and hematocrit are within normal limits. All questions have been answered to patient's satisfaction. Patient verbalized understanding of diagnosis and treatments explained. Advised to call sooner prior to next visit it any questions/concerns arise. Case discussed with collaborating physician Lebron Mendenhall who reviewed the assessment and plan. Chart, medications, labs, vital signs reviewed. Dictation was accomplished with the use of [employer] voice recognition software, which is prone to medical misidentifications and grammatical errors. This are unintentional and the practitioner does try to identify and correct these, but some could still be present. Please do not hesitate to contact practitioner for clarification. 09/18/2024 Hx of bladder cancer (ICD-10 - Z85.51) Nic is a 69-year-old male who presents to the office today for a follow-up. Patient is medically complex, I do not have the specialist notes at this time, will request them. #Nephrolithotomy: patient underwent a left percutaneous nephrolithotomy: patient does follow regualry with #Hx Bladder cancer: Patient follows with urology, Dr. Jordan and Dr. Benson [facility]. Patient had a urostomy placed in 2008. Admits that he is cancer free. Patient states that he follows with the specialist regularly, recently had surgery to remove his kidney stones, states the surgery went well. # Hx Colorectal cancer: Patient had a colostomy bag placed in December. Patient states that the surgery was completed by Carter Morales MD at [facility]. Patient states that he is unsure of whether or not he will be obtaining future colonoscopies, has an appointment coming up is unsure of the date. Additionally patient states that he is following with MONIQUE Rothman from [place], awaiting appointment. will try and request [facility] records for the patient to bring to [facility]. 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 He started chemoradiation with Xeloda on 06/14/2023, completed radition on 07/27/2023.Started neoadjuvant FOLFOX on 08/24/23 and completed 6 full cycles. underwent an APR on 12/26/2022. #History of Stage III Bladder Cancer: Treated with neoadjucant MVAC, chemotherpy was followed by cystectomy according to prior oncology note from 08/21/24. #Urology note states that PET scan/CT scan performed on May 26, 2023 showed uptake in the rectum, uptake in the sigmoid colon near the rectosigmoid junction, and uptake in the 0.8 cm right perirectal node. #History of colo rectal cancer: Patient did undergo an APR which was performed by Dr. Morales in [place] at [facility], according to the urology note the pathology revealed a T2 grade 2 adenocarcinoma. At this time patient is trying to obtain a follow-up with the same provider, or obtain a follow-up with a different GI provider. #GI note from Edmar Najera: Patient was seen by [facility] gastroenterology on 06/26/2024. The note reports that they were trying to obtain the surgery report from [facility] as well as inquiring the colorectal surgeons opinion about timing for repeat colonoscopy. #Parkinsonian syndrome: Patient is on carbidopa-levodopa 10-500 mg tablet orally 3 times a day. Patient states that he was began on this medication by his previous neurologist due to a side effect from chemotherapy. [place] saw [place] [facility] [place], requesting notes. #Kidney stones: Patient had a nephrostomy placed in December 2023, he has had it replaced every 3 months. Patient states that he sees Dr. Angela Guevara for nephrology. Patient states that his last reported GFR was over 50%. Reports that his right kidney is completely atrophied and is no longer working. Patient states that he is unsure whether or not he is a candidate for kidney transplant. States his nephrostomy tube may be removed soon, has appointment September 25. #High cholesterol: Patient states that he is taking rosuvastatin 10 mg daily, states that this was previously monitored by his previous primary care provider. I will order labs to ensure he has a sufficient values. #Gout: Patient states that he is on Febuxostat for his gout. Patient has not admitted to any pain in her joints today, or inflammation. #Anemia: Patient is currently taking iron supplements once daily. I will order a CBC to ensure his hemoglobin and hematocrit are within normal limits. All questions have been answered to patient's satisfaction. Patient verbalized understanding of diagnosis and treatments explained. Advised to call sooner prior to next visit it any questions/concerns arise. Case discussed with collaborating physician Kelby Mendenhall who reviewed the assessment and plan. Chart, medications, labs, vital signs reviewed. Dictation was accomplished with the use of [employer] voice recognition software, which is prone to medical misidentifications and grammatical errors. This are unintentional and the practitioner does try to identify and correct these, but some could still be present. Please do not hesitate to contact practitioner for clarification. 11/21/2024 Adult general medical exam (ICD-10 - Z00.00) Nic is a 69-year-old male who presents to the office today for a MWV. Patient is medically complex, I do not have the specialist notes at this time, will request them. #Nephrolithotomy: patient underwent a left percutaneous nephrolithotomy: patient does follow regualry with . saw on Nov 20 and there are no reported changes, recommended potassium citrate. #Hyperlipidemia: Recent lab values demonstrated a cholesterol of 240, LDL of 153 and non-HDL of 182, continue taking rosuvastatin 10 mg once daily. Patient states that these labs were nonfasting as he did have creamer in his coffee this morning #CBC abnormality: MCHC 31.9, RDW 15.4 and lymphocytes of 0.51 Send #CMP: BUN 31, creatinine 1.65, EGFR 34. Patient does regularly follow with nephrology #Microalbumin creatinine ratio: Microalbumin 72.5, microalbumin creatinine ratio 129. Patient does follow regularly with urology and nephrology. #Hx Bladder cancer: Patient follows with urology, Dr. Godwin from [facility]. Patient had a urostomy placed in 2008. Admits that he is cancer free. Patient states that he follows with the specialist regularly, recently had surgery to remove his kidney stones, states the surgery went well. Appointment in March 2025. #[facility] Surgeon: They have not called him, was following with pt. # Hx Colorectal cancer: Patient had a colostomy bag placed in December. Patient states that the surgery was completed by Carter Morales MD at [facility]. Patient states that he is unsure of whether or not he will be obtaining future colonoscopies, has an appointment coming up is unsure of the date. Additionally patient states that he is following with MONIQUE Rothman from [place], awaiting appointment with screening recommendation. will try and request [employer] records for the patient to bring to [facility]. 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 He started chemoradiation with Xeloda on 06/14/2023, completed radition on 07/27/2023.Started neoadjuvant FOLFOX on 08/24/23 and completed 6 full cycles. underwent an APR on 12/26/2022. Dr Conn Sister Ian next month. #History of Stage III Bladder Cancer: Treated with neoadjucant MVAC, chemotherpy was followed by cystectomy according to prior oncology note from 08/21/24. #Urology note states that PET scan/CT scan performed on May 26, 2023 showed uptake in the rectum, uptake in the sigmoid colon near the rectosigmoid junction, and uptake in the 0.8 cm right perirectal node. #History of colo rectal cancer: Patient did undergo an APR which was performed by Dr. Morales in [place] at [facility], according to the urology note the pathology revealed a T2 grade 2 adenocarcinoma. At this time patient is trying to obtain a follow-up with the same provider, or obtain a follow-up with a different GI provider. #GI note from Edmar Najera: Patient was seen by [facility] gastroenterology on 06/26/2024. The note reports that they were trying to obtain the surgery report from [facility] as well as inquiring the colorectal surgeons opinion about timing for repeat colonoscopy. Follows with as needed. #Parkinsonian syndrome: Patient is on carbidopa-levodopa 10-500 mg tablet orally 3 times a day. Patient states that he was began on this medication by his previous neurologist due to a side effect from chemotherapy. Patient saw Dr. Ibrahim [place] [facility] [place], requesting notes. Has a follow up scheduled for November 27 2024. #Kidney stones: Patient had a nephrostomy placed in December 2023, he has had it replaced every 3 months. Patient states that he sees Dr. Angela Guevara for nephrology. Patient states that his last reported GFR was over 50%. Reports that his right kidney is completely atrophied and is no longer working. Patient states that he is unsure whether or not he is a candidate for kidney transplant. States his nephrostomy tube was removed, September 25. #High cholesterol: Patient states that he is taking rosuvastatin 10 mg daily, states that this was previously monitored by his previous primary care provider. #Gout: Patient states that he is on Febuxostat for his gout. Patient has not admitted to any pain in her joints today, or inflammation. #Anemia: Patient is currently taking iron supplements once daily. I will order a CBC to ensure his hemoglobin and hematocrit are within normal limits. Medicare Wellness Patient is here for a Medicare wellness visit. Complete paperwork was reviewed and updated and has been filed and scan. Depression screen completed. Alcohol AUDIT SCREEN completed. Obesity screen completed. Cardiovascular risk stratification screen completed. Cognition assessed and within reasonable limits Fall risk assessed Discussed healthcare proxy. Discussed [place] order for life sustaining treatment, end-of-life issues, intubation and resuscitation dialysis artificial nutrition and hydration is appropriate. All questions have been answered to patient's satisfaction. Patient verbalized understanding of diagnosis and treatments explained. Advised to call sooner prior to next visit it any questions/concerns arise. Case discussed with Kelby MCKENZIE who reviewed the assessment and plan. Chart, medications, labs, vital signs reviewed. Dictation was accomplished with the use of [employer] voice recognition software, which is prone to medical misidentifications and grammatical errors. This are unintentional and the practitioner does try to identify and correct these, but some could still be present. Please do not hesitate to contact practitioner for clarification. 11/21/2024 Encounter for screening for depression (ICD-10 - Z13.31) Nic is a 69-year-old male who presents to the office today for a MWV. Patient is medically complex, I do not have the specialist notes at this time, will request them. #Nephrolithotomy: patient underwent a left percutaneous nephrolithotomy: patient does follow regualry with . saw on Nov 20 and there are no reported changes, recommended potassium citrate. #Hyperlipidemia: Recent lab values demonstrated a cholesterol of 240, LDL of 153 and non-HDL of 182, continue taking rosuvastatin 10 mg once daily. Patient states that these labs were nonfasting as he did have creamer in his coffee this morning #CBC abnormality: MCHC 31.9, RDW 15.4 and lymphocytes of 0.51 Send #CMP: BUN 31, creatinine 1.65, EGFR 34. Patient does regularly follow with nephrology #Microalbumin creatinine ratio: Microalbumin 72.5, microalbumin creatinine ratio 129. Patient does follow regularly with urology and nephrology. #Hx Bladder cancer: Patient follows with urology, Dr. Godwin from [facility]. Patient had a urostomy placed in 2008. Admits that he is cancer free. Patient states that he follows with the specialist regularly, recently had surgery to remove his kidney stones, states the surgery went well. Appointment in March 2025. #[facility] Surgeon: They have not called him, was following with pt. # Hx Colorectal cancer: Patient had a colostomy bag placed in December. Patient states that the surgery was completed by Carter Morales MD at [facility]. Patient states that he is unsure of whether or not he will be obtaining future colonoscopies, has an appointment coming up is unsure of the date. Additionally patient states that he is following with MONIQUE Rothman from [place], awaiting appointment with screening recommendation. will try and request [employer] records for the patient to bring to [facility]. 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 He started chemoradiation with Xeloda on 06/14/2023, completed radition on 07/27/2023.Started neoadjuvant FOLFOX on 08/24/23 and completed 6 full cycles. underwent an APR on 12/26/2022. Dr Fabien Sister Ian next month. #History of Stage III Bladder Cancer: Treated with neoadjucant MVAC, chemotherpy was followed by cystectomy according to prior oncology note from 08/21/24. #Urology note states that PET scan/CT scan performed on May 26, 2023 showed uptake in the rectum, uptake in the sigmoid colon near the rectosigmoid junction, and uptake in the 0.8 cm right perirectal node. #History of colo rectal cancer: Patient did undergo an APR which was performed by Dr. Morales in [place] at [facility], according to the urology note the pathology revealed a T2 grade 2 adenocarcinoma. At this time patient is trying to obtain a follow-up with the same provider, or obtain a follow-up with a different GI provider. #GI note from Edmar Najera: Patient was seen by [facility] gastroenterology on 06/26/2024. The note reports that they were trying to obtain the surgery report from [facility] as well as inquiring the colorectal surgeons opinion about timing for repeat colonoscopy. Follows with as needed. #Parkinsonian syndrome: Patient is on carbidopa-levodopa 10-500 mg tablet orally 3 times a day. Patient states that he was began on this medication by his previous neurologist due to a side effect from chemotherapy. Patient saw [place]. Ibrahim [place] [facility] [place], requesting notes. Has a follow up scheduled for November 27 2024. #Kidney stones: Patient had a nephrostomy placed in December 2023, he has had it replaced every 3 months. Patient states that he sees Dr. Angela Guevara for nephrology. Patient states that his last reported GFR was over 50%. Reports that his right kidney is completely atrophied and is no longer working. Patient states that he is unsure whether or not he is a candidate for kidney transplant. States his nephrostomy tube was removed, September 25. #High cholesterol: Patient states that he is taking rosuvastatin 10 mg daily, states that this was previously monitored by his previous primary care provider. #Gout: Patient states that he is on Febuxostat for his gout. Patient has not admitted to any pain in her joints today, or inflammation. #Anemia: Patient is currently taking iron supplements once daily. I will order a CBC to ensure his hemoglobin and hematocrit are within normal limits. Medicare Wellness Patient is here for a Medicare wellness visit. Complete paperwork was reviewed and updated and has been filed and scan. Depression screen completed. Alcohol AUDIT SCREEN completed. Obesity screen completed. Cardiovascular risk stratification screen completed. Cognition assessed and within reasonable limits Fall risk assessed Discussed healthcare proxy. Discussed [place] order for life sustaining treatment, end-of-life issues, intubation and resuscitation dialysis artificial nutrition and hydration is appropriate. All questions have been answered to patient's satisfaction. Patient verbalized understanding of diagnosis and treatments explained. Advised to call sooner prior to next visit it any questions/concerns arise. Case discussed with Kelby MCKENZIE who reviewed the assessment and plan. Chart, medications, labs, vital signs reviewed. Dictation was accomplished with the use of [employer] voice recognition software, which is prone to medical misidentifications and grammatical errors. This are unintentional and the practitioner does try to identify and correct these, but some could still be present. Please do not hesitate to contact practitioner for clarification. 02/20/2025 Pain in right hand (ICD-10 - M79.641) Nic is a 69-year-old male who presents to the office today for a f/u.. Patient is medically complex, I do not have the specialist notes at this time, will request them. #Phalanges: Bilateral hand x-ray ordered today as patient does have tenderness upon palpation of the trapezius bones bilaterally, he is to call arthritis tx center #Oncology appointment: Scheduled for May, patient does have a CT scan scheduled for June 11 and at oncology appoint with Dr. Conn on June 21.States that he always obtains blood work before these appointments. #Nephrolithotomy: patient underwent a left percutaneous nephrolithotomy: patient does follow regualry with . saw on Nov 20 and there are no reported changes, recommended potassium citrate. #Hyperlipidemia: Recent lab values demonstrated a cholesterol of 240, LDL of 153 and non-HDL of 182, continue taking rosuvastatin 10 mg once daily. #CBC abnormality: Recent CBC, MCHC 31.9, RDW 15.4 and lymphocytes of 0.51.. #CMP: Recent...BUN 31, creatinine 1.65, EGFR 34. Patient does regularly follow with nephrology #Microalbumin creatinine ratio: Microalbumin 72.5, microalbumin creatinine ratio 129. Patient does follow regularly with urology and nephrology. #Hx Bladder cancer: Patient follows with urology, Dr. Godwin from [facility]. Patient had a urostomy placed in 2008. Admits that he is cancer free. Patient states that he follows with the specialist regularly, recently had surgery to remove his kidney stones, states the surgery went well. Appointmentand US in March 2025. #[facility] Surgeon: They have not called him, was following with pt. # Hx Colorectal cancer: Patient had a colostomy bag placed in December. Patient states that the surgery was completed by Carter Morales MD at [facility]. Patient states that he is unsure of whether or not he will be obtaining future colonoscopies, has an appointment coming up is unsure of the date. Additionally patient states that he is following with MONIQUE Rothman from [place], awaiting appointment with screening recommendation. will try and request [employer] records for the patient to bring to [facility]. 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 He started chemoradiation with Xeloda on 06/14/2023, completed radition on 07/27/2023.Started neoadjuvant FOLFOX on 08/24/23 and completed 6 full cycles. underwent an APR on 12/26/2022. Dr Conn Sister Ian next month. #History of Stage III Bladder Cancer: Treated with neoadjucant MVAC, chemotherpy was followed by cystectomy according to prior oncology note from 08/21/24. #Urology note states that PET scan/CT scan performed on May 26, 2023 showed uptake in the rectum, uptake in the sigmoid colon near the rectosigmoid junction, and uptake in the 0.8 cm right perirectal node. #History of colo rectal cancer: Patient did undergo an APR which was performed by Dr. Morales in [place] at [facility], according to the urology note the pathology revealed a T2 grade 2 adenocarcinoma. At this time patient is trying to obtain a follow-up with the same provider, or obtain a follow-up with a different GI provider. #GI note from Edmar Najera: Patient was seen by [facility] gastroenterology on 06/26/2024. The note reports that they were trying to obtain the surgery report from [facility] as well as inquiring the colorectal surgeons opinion about timing for repeat colonoscopy. Follows with as needed. #Parkinsonian syndrome: Patient is on carbidopa-levodopa 10-500 mg tablet orally 3 times a day. Patient states that he was began on this medication by his previous neurologist due to a side effect from chemotherapy. Patient [place]. Ibrahim [place] [facility] [place], requesting notes. Saw last in Nov 2024, was started on Lyrice 150mg QD... would benefit from BID.. he will call #Kidney stones: Patient had a nephrostomy placed in December 2023, he has had it replaced every 3 months. Patient states that he sees Dr. Angela Guevara for nephrology. Patient states that his last reported GFR was over 50%. Reports that his right kidney is completely atrophied and is no longer working. Patient states that he is unsure whether or not he is a candidate for kidney transplant. States his nephrostomy tube was removed, September 25. #Gout: Patient states that he is on Febuxostat for his gout. All questions have been answered to patient's satisfaction. Patient verbalized understanding of diagnosis and treatments explained. Advised to call sooner prior to next visit it any questions/concerns arise. Case discussed with Kelby MCKENZIE who reviewed the assessment and plan. Chart, medications, labs, vital signs reviewed. Dictation was accomplished with the use of [employer] voice recognition software, which is prone to medical misidentifications and grammatical errors. This are unintentional and the practitioner does try to identify and correct these, but some could still be present. Please do not hesitate to contact practitioner for clarification. 02/20/2025 Pain in left hand (ICD-10 - M79.642) Nic is a 69-year-old male who presents to the office today for a f/u.. Patient is medically complex, I do not have the specialist notes at this time, will request them. #Phalanges: Bilateral hand x-ray ordered today as patient does have tenderness upon palpation of the trapezius bones bilaterally, he is to call arthritis tx center #Oncology appointment: Scheduled for May, patient does have a CT scan scheduled for June 11 and at oncology appoint with Dr. Conn on June 21.States that he always obtains blood work before these appointments. #Nephrolithotomy: patient underwent a left percutaneous nephrolithotomy: patient does follow regualry with . saw on Nov 20 and there are no reported changes, recommended potassium citrate. #Hyperlipidemia: Recent lab values demonstrated a cholesterol of 240, LDL of 153 and non-HDL of 182, continue taking rosuvastatin 10 mg once daily. #CBC abnormality: Recent CBC, MCHC 31.9, RDW 15.4 and lymphocytes of 0.51.. #CMP: Recent...BUN 31, creatinine 1.65, EGFR 34. Patient does regularly follow with nephrology #Microalbumin creatinine ratio: Microalbumin 72.5, microalbumin creatinine ratio 129. Patient does follow regularly with urology and nephrology. #Hx Bladder cancer: Patient follows with urology, Dr. Godwin from [facility]. Patient had a urostomy placed in 2008. Admits that he is cancer free. Patient states that he follows with the specialist regularly, recently had surgery to remove his kidney stones, states the surgery went well. Appointmentand US in March 2025. #[facility] Surgeon: They have not called him, was following with pt. # Hx Colorectal cancer: Patient had a colostomy bag placed in 2023, December. Patient states that the surgery was completed by Carter Morales MD at [facility]. Patient states that he is unsure of whether or not he will be obtaining future colonoscopies, has an appointment coming up is unsure of the date. Additionally patient states that he is following with MONIQUE Rothman from [place], awaiting appointment with screening recommendation. will try and request [facility] records for the patient to bring to [facility]. 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 He started chemoradiation with Xeloda on 06/14/2023, completed radition on 07/27/2023.Started neoadjuvant FOLFOX on 08/24/23 and completed 6 full cycles. underwent an APR on 12/26/2022. Dr Conn Sister Ian next month. #History of Stage III Bladder Cancer: Treated with neoadjucant MVAC, chemotherpy was followed by cystectomy according to prior oncology note from 08/21/24. #Urology note states that PET scan/CT scan performed on May 26, 2023 showed uptake in the rectum, uptake in the sigmoid colon near the rectosigmoid junction, and uptake in the 0.8 cm right perirectal node. #History of colo rectal cancer: Patient did undergo an APR which was performed by Dr. Morales in [place] at [facility], according to the urology note the pathology revealed a T2 grade 2 adenocarcinoma. At this time patient is trying to obtain a follow-up with the same provider, or obtain a follow-up with a different GI provider. #GI note from Edmar Najera: Patient was seen by [facility] gastroenterology on 06/26/2024. The note reports that they were trying to obtain the surgery report from [facility] as well as inquiring the colorectal surgeons opinion about timing for repeat colonoscopy. Follows with as needed. #Parkinsonian syndrome: Patient is on carbidopa-levodopa 10-500 mg tablet orally 3 times a day. Patient states that he was began on this medication by his previous neurologist due to a side effect from chemotherapy. Patient [place] [facility] [place]. Saw last in Nov 2024, was started on Lyrice 150mg QD... would benefit from BID.. he will call #Kidney stones: Patient had a nephrostomy placed in December 2023, he has had it replaced every 3 months. Patient states that he sees Dr. Angela Guevara for nephrology. Patient states that his last reported GFR was over 50%. Reports that his right kidney is completely atrophied and is no longer working. Patient states that he is unsure whether or not he is a candidate for kidney transplant. States his nephrostomy tube was removed, September 25. #Gout: Patient states that he is on Febuxostat for his gout. All questions have been answered to patient's satisfaction. Patient verbalized understanding of diagnosis and treatments explained. Advised to call sooner prior to next visit it any questions/concerns arise. Case discussed with Kelby MCKENZIE who reviewed the assessment and plan. Chart, medications, labs, vital signs reviewed. Dictation was accomplished with the use of [employer] voice recognition software, which is prone to medical misidentifications and grammatical errors. This are unintentional and the practitioner does try to identify and correct these, but some could still be present. Please do not hesitate to contact practitioner for clarification. 03/06/2025 Pain in right hand (ICD-10 - M79.641) Nic is a 69-year-old male who presents to the office today for a f/u.. #Hip lump: At this time due to patient's extensive history of cancer I feel as though obtaining a CAT scan with contrast would be most appropriate for further evaluation of this rather large mass on patient's left trochanter of femur. I called Dr. Angela Guevara's office and left a voicemail in regards to his thoughts on having the patient undergo the CT scan with or without contrast. Will hold off on placing order until we hear back from the percussion tuner. He is to call our office tomorrow morning with an update. 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 #Oncology appointment: Scheduled for May, patient does have a CT scan scheduled for June 11 and at oncology appoint with Dr. Conn on June 21.States that he always obtains blood work before these appointments. #Nephrolithotomy: patient underwent a left percutaneous nephrolithotomy: patient does follow regualry with . saw on Nov 20 and there are no reported changes, recommended potassium citrate. #Hyperlipidemia: Recent lab values demonstrated a cholesterol of 240, LDL of 153 and non-HDL of 182, continue taking rosuvastatin 10 mg once daily. #CBC abnormality: Recent CBC, MCHC 31.9, RDW 15.4 and lymphocytes of 0.51.. #CMP: Recent...BUN 31, creatinine 1.65, EGFR 34. Patient does regularly follow with nephrology #Microalbumin creatinine ratio: Microalbumin 72.5, microalbumin creatinine ratio 129. Patient does follow regularly with urology and nephrology. #Hx Bladder cancer: Patient follows with urology, Dr. Godwin from [facility]. Patient had a urostomy placed in 2008. Admits that he is cancer free. Patient states that he follows with the specialist regularly, recently had surgery to remove his kidney stones, states the surgery went well. Appointmentand US in March 2025. #[facility] Surgeon: They have not called him, was following with pt. # Hx Colorectal cancer: Patient had a colostomy bag placed in December. Patient states that the surgery was completed by Carter Morales MD at [facility]. Patient states that he is unsure of whether or not he will be obtaining future colonoscopies, has an appointment coming up is unsure of the date. Additionally patient states that he is following with MONIQUE Rothman from [place], awaiting appointment with screening recommendation. will try and request [employer] records for the patient to bring to [facility]. 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 He started chemoradiation with Xeloda on 06/14/2023, completed radition on 07/27/2023.Started neoadjuvant FOLFOX on 08/24/23 and completed 6 full cycles. underwent an APR on 12/26/2022. Dr Conn Sister Ian next month. #History of Stage III Bladder Cancer: Treated with neoadjucant MVAC, chemotherpy was followed by cystectomy according to prior oncology note from 08/21/24. #Urology note states that PET scan/CT scan performed on May 26, 2023 showed uptake in the rectum, uptake in the sigmoid colon near the rectosigmoid junction, and uptake in the 0.8 cm right perirectal node. #History of colo rectal cancer: Patient did undergo an APR which was performed by Dr. Morales in [place] at [facility], according to the urology note the pathology revealed a T2 grade 2 adenocarcinoma. At this time patient is trying to obtain a follow-up with the same provider, or obtain a follow-up with a different GI provider. #GI note from Edmar Najera: Patient was seen by [facility] gastroenterology on 06/26/2024. The note reports that they were trying to obtain the surgery report from [facility] as well as inquiring the colorectal surgeons opinion about timing for repeat colonoscopy. Follows with as needed. #Parkinsonian syndrome: Patient is on carbidopa-levodopa 10-500 mg tablet orally 3 times a day. Patient states that he was began on this medication by his previous neurologist due to a side effect from chemotherapy. Patient [place]. Ibrahim [place] [facility] [place], requesting notes. Saw last in Nov 2024, was started on Lyrice 150mg QD... would benefit from BID.. he will call #Kidney stones: Patient had a nephrostomy placed in December 2023, he has had it replaced every 3 months. Patient states that he sees Dr. Angela Guevara for nephrology. Patient states that his last reported GFR was over 50%. Reports that his right kidney is completely atrophied and is no longer working. Patient states that he is unsure whether or not he is a candidate for kidney transplant. States his nephrostomy tube was removed, September 25. #Gout: Patient states that he is on Febuxostat for his gout. All questions have been answered to patient's satisfaction. Patient verbalized understanding of diagnosis and treatments explained. Advised to call sooner prior to next visit it any questions/concerns arise. Case discussed with Kelby MCKENZIE who reviewed the assessment and plan. Chart, medications, labs, vital signs reviewed. Dictation was accomplished with the use of [employer] voice recognition software, which is prone to medical misidentifications and grammatical errors. This are unintentional and the practitioner does try to identify and correct these, but some could still be present. Please do not hesitate to contact practitioner for clarification. 03/06/2025 Hip pain, left (ICD-10 - M25.552) Nic is a 69-year-old male who presents to the office today for a f/u.. #Hip lump: At this time due to patient's extensive history of cancer I feel as though obtaining a CAT scan with contrast would be most appropriate for further evaluation of this rather large mass on patient's left trochanter of femur. I called Dr. Angela Guevara's office and left a voicemail in regards to his thoughts on having the patient undergo the CT scan with or without contrast. Will hold off on placing order until we hear back from the percussion tuner. He is to call our office tomorrow morning with an update. 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 #Oncology appointment: Scheduled for May, patient does have a CT scan scheduled for June 11 and at oncology appoint with Dr. Conn on June 21.States that he always obtains blood work before these appointments. #Nephrolithotomy: patient underwent a left percutaneous nephrolithotomy: patient does follow regualry with . saw on Nov 20 and there are no reported changes, recommended potassium citrate. #Hyperlipidemia: Recent lab values demonstrated a cholesterol of 240, LDL of 153 and non-HDL of 182, continue taking rosuvastatin 10 mg once daily. #CBC abnormality: Recent CBC, MCHC 31.9, RDW 15.4 and lymphocytes of 0.51.. #CMP: Recent...BUN 31, creatinine 1.65, EGFR 34. Patient does regularly follow with nephrology #Microalbumin creatinine ratio: Microalbumin 72.5, microalbumin creatinine ratio 129. Patient does follow regularly with urology and nephrology. #Hx Bladder cancer: Patient follows with urology, Dr. Godwin from [facility]. Patient had a urostomy placed in 2008. Admits that he is cancer free. Patient states that he follows with the specialist regularly, recently had surgery to remove his kidney stones, states the surgery went well. Appointmentand US in March 2025. #[facility]: They have not called him, was following with pt. # Hx Colorectal cancer: Patient had a colostomy bag placed in December. Patient states that the surgery was completed by Carter Morales MD at [facility]. Patient states that he is unsure of whether or not he will be obtaining future colonoscopies, has an appointment coming up is unsure of the date. Additionally patient states that he is following with MONIQUE Rothman from [place], awaiting appointment with screening recommendation. will try and request [facility] records for the patient to bring to [facility]. 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 He started chemoradiation with Xeloda on 06/14/2023, completed radition on 07/27/2023.Started neoadjuvant FOLFOX on 08/24/23 and completed 6 full cycles. underwent an APR on 12/26/2022. Dr Conn Sister Ian next month. #History of Stage III Bladder Cancer: Treated with neoadjucant MVAC, chemotherpy was followed by cystectomy according to prior oncology note from 08/21/24. #Urology note states that PET scan/CT scan performed on May 26, 2023 showed uptake in the rectum, uptake in the sigmoid colon near the rectosigmoid junction, and uptake in the 0.8 cm right perirectal node. #History of colo rectal cancer: Patient did undergo an APR which was performed by Dr. Morales in [place] at [facility], according to the urology note the pathology revealed a T2 grade 2 adenocarcinoma. At this time patient is trying to obtain a follow-up with the same provider, or obtain a follow-up with a different GI provider. #GI note from Edmar Najera: Patient was seen by [facility] gastroenterology on 06/26/2024. The note reports that they were trying to obtain the surgery report from [facility] as well as inquiring the colorectal surgeons opinion about timing for repeat colonoscopy. Follows with as needed. #Parkinsonian syndrome: Patient is on carbidopa-levodopa 10-500 mg tablet orally 3 times a day. Patient states that he was began on this medication by his previous neurologist due to a side effect from chemotherapy. Patient [place]. Ibrahim [place] [facility] [place], [place] notes. Saw last in Nov 2024, was started on Lyrice 150mg QD... would benefit from BID.. he will call #Kidney stones: Patient had a nephrostomy placed in December 2023, he has had it replaced every 3 months. Patient states that he sees Dr. Angela Guevara for nephrology. Patient states that his last reported GFR was over 50%. Reports that his right kidney is completely atrophied and is no longer working. Patient states that he is unsure whether or not he is a candidate for kidney transplant. States his nephrostomy tube was removed, September 25. #Gout: Patient states that he is on Febuxostat for his gout. All questions have been answered to patient's satisfaction. Patient verbalized understanding of diagnosis and treatments explained. Advised to call sooner prior to next visit it any questions/concerns arise. Case discussed with Kelby MCKENZIE who reviewed the assessment and plan. Chart, medications, labs, vital signs reviewed. Dictation was accomplished with the use of [employer] voice recognition software, which is prone to medical misidentifications and grammatical errors. This are unintentional and the practitioner does try to identify and correct these, but some could still be present. Please do not hesitate to contact practitioner for clarification. 04/17/2025 Pain in right hand (ICD-10 - M79.641) Nic is a 69-year-old male who presents to the office today for a f/u.. #Tension Headaches: Per research on [employer], medication such as sumatriptan, amitriptyline have multiple interactions with medications that the patient is on, he is encouraged to discuss tension headache protocol with Dr. Ibrahim at his follow-up. #purpura: Obtaining CBC, iron studies, however patient advised that these are more than likely benign findings #NEOS: Has an appointment on June 19 2025 for hip femoral fluid collection, will try to expidite this process... #Hip lump: 03/15/2025, patient was given IV hydration protocol before and after imaging. Findings included Moderate osteoarthritis of the left hip,No evidence of metastatic disease in the visualized left pelvis or femur, The observation of a circumscribed fluid collection along the surface of the iliotibial band requires clinical correlation. This could represent a relatively subacute or old liquefied hematoma (if there was fall/trauma to the lateral hip). The edema of the overlying subcutaneous tissues could be from trauma or inflammation. No soft tissue gas in this area. The collection could be aspirated if there is clinical suspicion of an infected collection NEOS referral was placed, stsates he has an apt June 19 2025.. 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 #Oncology appointment: Scheduled for May, patient does have a CT scan scheduled for June 11 and at oncology appoint with Dr. Conn on June 21.States that he always obtains blood work before these appointments. #Nephrolithotomy: patient underwent a left percutaneous nephrolithotomy: patient does follow regualry with . saw on Nov 20 and there are no reported changes, recommended potassium citrate. #Hyperlipidemia: Recent lab values demonstrated a cholesterol of 240, LDL of 153 and non-HDL of 182, continue taking rosuvastatin 10 mg once daily. #CBC abnormality: Recent CBC, MCHC 31.9, RDW 15.4 and lymphocytes of 0.51.. Obtaining repeat #CMP: Recent...BUN 31, creatinine 1.65, EGFR 34. Patient does regularly follow with nephrology... #Microalbumin creatinine ratio: Last Microalbumin 72.5, microalbumin creatinine ratio 129. Patient does follow regularly with urology and nephrology. #Hx Bladder cancer: Patient follows with urology, Dr. Santana from [facility]. Patient had a urostomy placed in 2008. Admits that he is cancer free. Patient states that he follows with the specialist regularly, recently had surgery to remove his kidney stones, states the surgery went well. Appointmentand US in March 2025. #[facility] Surgeon: They have not called him, was following with pt. # Hx Colorectal cancer: Patient had a colostomy bag placed in December. Patient states that the surgery was completed by Carter Morales MD at [facility]. Patient states that he is unsure of whether or not he will be obtaining future colonoscopies, has an appointment coming up is unsure of the date. Additionally patient states that he is following with MONIQUE Rothman from [place], awaiting appointment with screening recommendation. will try and request [facility] records for the patient to bring to [facility]. 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 He started chemoradiation with Xeloda on 06/14/2023, completed radition on 07/27/2023.Started neoadjuvant FOLFOX on 08/24/23 and completed 6 full cycles. underwent an APR on 12/26/2022. Dr Conn Sister Ian next month. #History of Stage III Bladder Cancer: Treated with neoadjucant MVAC, chemotherpy was followed by cystectomy according to prior oncology note from 08/21/24. #Urology note states that PET scan/CT scan performed on May 26, 2023 showed uptake in the rectum, uptake in the sigmoid colon near the rectosigmoid junction, and uptake in the 0.8 cm right perirectal node. #History of colo rectal cancer: Patient did undergo an APR which was performed by Dr. Morales in [place] at [facility], according to the urology note the pathology revealed a T2 grade 2 adenocarcinoma. At this time patient is trying to obtain a follow-up with the same provider, or obtain a follow-up with a different GI provider. #GI note from Edmar Najera: Patient was seen by [facility] gastroenterology on 06/26/2024. The note reports that they were trying to obtain the surgery report from [facility] as well as inquiring the colorectal surgeons opinion about timing for repeat colonoscopy. Follows with as needed. #Parkinsonian syndrome: Patient is on carbidopa-levodopa 10-500 mg tablet orally 3 times a day. Patient states that he was began on this medication by his previous neurologist due to a side effect from chemotherapy. Patient [place]. Ibrahim [place] [facility] [place], [place] notes. Saw last in Nov 2024..Continue Lyrice 150mg BID.. F/u May 28 #Kidney stones: Patient had a nephrostomy placed in December 2023, he has had it replaced every 3 months. Patient states that he sees Dr. Angela Guevara for nephrology. Patient states that his last reported GFR was over 50%. Reports that his right kidney is completely atrophied and is no longer working. Patient states that he is unsure whether or not he is a candidate for kidney transplant. States his nephrostomy tube was removed, September 25... F/u is on May 21 2025 #Gout: Patient states that he is on Febuxostat for his gout. All questions have been answered to patient's satisfaction. Patient verbalized understanding of diagnosis and treatments explained. Advised to call sooner prior to next visit it any questions/concerns arise. Dictation was accomplished with the use of [employer] voice recognition software, which is prone to medical misidentifications and grammatical errors. This are unintentional and the practitioner does try to identify and correct these, but some could still be present. Please do not hesitate to contact practitioner for clarification. 03/08/2025 Hip pain, left (ICD-10 - M25.552) 05/16/2025 Hypercholesteremia (ICD-10 - E78.00) 03/08/2025 Bladder carcinoma (ICD-10 - C67.9) 04/17/2025 Hip pain, left (ICD-10 - M25.552) Nic is a 69-year-old male who presents to the office today for a f/u.. #Tension Headaches: Per research on [employer], medication such as sumatriptan, amitriptyline have multiple interactions with medications that the patient is on, he is encouraged to discuss tension headache protocol with Dr. Ibrahim at his follow-up. #purpura: Obtaining CBC, iron studies, however patient advised that these are more than likely benign findings #NEOS: Has an appointment on June 19 2025 for hip femoral fluid collection, will try to expidite this process... #Hip lump: 03/15/2025, patient was given IV hydration protocol before and after imaging. Findings included Moderate osteoarthritis of the left hip,No evidence of metastatic disease in the visualized left pelvis or femur, The observation of a circumscribed fluid collection along the surface of the iliotibial band requires clinical correlation. This could represent a relatively subacute or old liquefied hematoma (if there was fall/trauma to the lateral hip). The edema of the overlying subcutaneous tissues could be from trauma or inflammation. No soft tissue gas in this area. The collection could be aspirated if there is clinical suspicion of an infected collection NEOS referral was placed, stsates he has an apt June 19 2025.. 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 #Oncology appointment: Scheduled for May, patient does have a CT scan scheduled for June 11 and at oncology appoint with Dr. Conn on June 21.States that he always obtains blood work before these appointments. #Nephrolithotomy: patient underwent a left percutaneous nephrolithotomy: patient does follow regualry with . saw on Nov 20 and there are no reported changes, recommended potassium citrate. #Hyperlipidemia: Recent lab values demonstrated a cholesterol of 240, LDL of 153 and non-HDL of 182, continue taking rosuvastatin 10 mg once daily. #CBC abnormality: Recent CBC, MCHC 31.9, RDW 15.4 and lymphocytes of 0.51.. Obtaining repeat #CMP: Recent...BUN 31, creatinine 1.65, EGFR 34. Patient does regularly follow with nephrology... #Microalbumin creatinine ratio: Last Microalbumin 72.5, microalbumin creatinine ratio 129. Patient does follow regularly with urology and nephrology. #Hx Bladder cancer: Patient follows with urology, Dr. Santana from [facility]. Patient had a urostomy placed in 2008. Admits that he is cancer free. Patient states that he follows with the specialist regularly, recently had surgery to remove his kidney stones, states the surgery went well. Appointmentand US in March 2025. #[facility] Surgeon: They have not called him, was following with pt. # Hx Colorectal cancer: Patient had a colostomy bag placed in December. Patient states that the surgery was completed by Carter Morales MD at [facility]. Patient states that he is unsure of whether or not he will be obtaining future colonoscopies, has an appointment coming up is unsure of the date. Additionally patient states that he is following with MONIQUE Rothman from [place], awaiting appointment with screening recommendation. will try and request [employer] records for the patient to bring to [facility]. 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 He started chemoradiation with Xeloda on 06/14/2023, completed radition on 07/27/2023.Started neoadjuvant FOLFOX on 08/24/23 and completed 6 full cycles. underwent an APR on 12/26/2022. Dr Fabien Sister Bertrandarmenboris next month. #History of Stage III Bladder Cancer: Treated with neoadjucant MVAC, chemotherpy was followed by cystectomy according to prior oncology note from 08/21/24. #Urology note states that PET scan/CT scan performed on May 26, 2023 showed uptake in the rectum, uptake in the sigmoid colon near the rectosigmoid junction, and uptake in the 0.8 cm right perirectal node. #History of colo rectal cancer: Patient did undergo an APR which was performed by Dr. Morales in [place] at [facility], according to the urology note the pathology revealed a T2 grade 2 adenocarcinoma. At this time patient is trying to obtain a follow-up with the same provider, or obtain a follow-up with a different GI provider. #GI note from Edmar Najera: Patient was seen by [facility] gastroenterology on 06/26/2024. The note reports that they were trying to obtain the surgery report from [facility] as well as inquiring the colorectal surgeons opinion about timing for repeat colonoscopy. Follows with as needed. #Parkinsonian syndrome: Patient is on carbidopa-levodopa 10-500 mg tablet orally 3 times a day. Patient states that he was began on this medication by his previous neurologist due to a side effect from chemotherapy. Patient [place] [facility] [place] requesting [place]. Saw last in Nov 2024..Continue Lyrice 150mg BID.. F/u May 28 #Kidney stones: Patient had a nephrostomy placed in December 2023, he has had it replaced every 3 months. Patient states that he sees Dr. Angela Guevara for nephrology. Patient states that his last reported GFR was over 50%. Reports that his right kidney is completely atrophied and is no longer working. Patient states that he is unsure whether or not he is a candidate for kidney transplant. States his nephrostomy tube was removed, September 25... F/u is on May 21 2025 #Gout: Patient states that he is on Febuxostat for his gout. All questions have been answered to patient's satisfaction. Patient verbalized understanding of diagnosis and treatments explained. Advised to call sooner prior to next visit it any questions/concerns arise. Dictation was accomplished with the use of [employer] voice recognition software, which is prone to medical misidentifications and grammatical errors. This are unintentional and the practitioner does try to identify and correct these, but some could still be present. Please do not hesitate to contact practitioner for clarification. 04/17/2025 Pain in left hand (ICD-10 - M79.642) Nic is a 69-year-old male who presents to the office today for a f/u.. #Tension Headaches: Per research on Epocrates, medication such as sumatriptan, amitriptyline have multiple interactions with medications that the patient is on, he is encouraged to discuss tension headache protocol with Dr. Ibrahim at his follow-up. #purpura: Obtaining CBC, iron studies, however patient advised that these are more than likely benign findings #NEOS: Has an appointment on June 19 2025 for hip femoral fluid collection, will try to expidite this process... #Hip lump: 03/15/2025, patient was given IV hydration protocol before and after imaging. Findings included Moderate osteoarthritis of the left hip,No evidence of metastatic disease in the visualized left pelvis or femur, The observation of a circumscribed fluid collection along the surface of the iliotibial band requires clinical correlation. This could represent a relatively subacute or old liquefied hematoma (if there was fall/trauma to the lateral hip). The edema of the overlying subcutaneous tissues could be from trauma or inflammation. No soft tissue gas in this area. The collection could be aspirated if there is clinical suspicion of an infected collection NEOS referral was placed, stsates he has an apt June 19 2025.. 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 #Oncology appointment: Scheduled for May, patient does have a CT scan scheduled for June 11 and at oncology appoint with Dr. Conn on June 21.States that he always obtains blood work before these appointments. #Nephrolithotomy: patient underwent a left percutaneous nephrolithotomy: patient does follow regualry with . saw on Nov 20 and there are no reported changes, recommended potassium citrate. #Hyperlipidemia: Recent lab values demonstrated a cholesterol of 240, LDL of 153 and non-HDL of 182, continue taking rosuvastatin 10 mg once daily. #CBC abnormality: Recent CBC, MCHC 31.9, RDW 15.4 and lymphocytes of 0.51.. Obtaining repeat #CMP: Recent...BUN 31, creatinine 1.65, EGFR 34. Patient does regularly follow with nephrology... #Microalbumin creatinine ratio: Last Microalbumin 72.5, microalbumin creatinine ratio 129. Patient does follow regularly with urology and nephrology. #Hx Bladder cancer: Patient follows with urology, Dr. Santana from [facility]. Patient had a urostomy placed in 2008. Admits that he is cancer free. Patient states that he follows with the specialist regularly, recently had surgery to remove his kidney stones, states the surgery went well. Appointmentand US in March 2025. #[facility] Surgeon: They have not called him, was following with pt. # Hx Colorectal cancer: Patient had a colostomy bag placed in December. Patient states that the surgery was completed by Carter Morales MD at [facility]. Patient states that he is unsure of whether or not he will be obtaining future colonoscopies, has an appointment coming up is unsure of the date. Additionally patient states that he is following with MONIQUE Rothman from [place], awaiting appointment with screening recommendation. will try and request [employer] records for the patient to bring to [facility]. 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 He started chemoradiation with Xeloda on 06/14/2023, completed radition on 07/27/2023.Started neoadjuvant FOLFOX on 08/24/23 and completed 6 full cycles. underwent an APR on 12/26/2022. Dr Conn Sister Ian next month. #History of Stage III Bladder Cancer: Treated with neoadjucant MVAC, chemotherpy was followed by cystectomy according to prior oncology note from 08/21/24. #Urology note states that PET scan/CT scan performed on May 26, 2023 showed uptake in the rectum, uptake in the sigmoid colon near the rectosigmoid junction, and uptake in the 0.8 cm right perirectal node. #History of colo rectal cancer: Patient did undergo an APR which was performed by Dr. Morales in [place] at [facility], according to the urology note the pathology revealed a T2 grade 2 adenocarcinoma. At this time patient is trying to obtain a follow-up with the same provider, or obtain a follow-up with a different GI provider. #GI note from Edmar Najera: Patient was seen by [facility] gastroenterology on 06/26/2024. The note reports that they were trying to obtain the surgery report from [facility] as well as inquiring the colorectal surgeons opinion about timing for repeat colonoscopy. Follows with as needed. #Parkinsonian syndrome: Patient is on carbidopa-levodopa 10-500 mg tablet orally 3 times a day. Patient states that he was began on this medication by his previous neurologist due to a side effect from chemotherapy. Patient [place]. Ibrahim [place] [facility] [place], requesting notes. Saw last in Nov 2024..Continue Lyrice 150mg BID.. F/u May 28 #Kidney stones: Patient had a nephrostomy placed in December 2023, he has had it replaced every 3 months. Patient states that he sees Dr. Angela Guevara for nephrology. Patient states that his last reported GFR was over 50%. Reports that his right kidney is completely atrophied and is no longer working. Patient states that he is unsure whether or not he is a candidate for kidney transplant. States his nephrostomy tube was removed, September 25... F/u is on May 21 2025 #Gout: Patient states that he is on Febuxostat for his gout. All questions have been answered to patient's satisfaction. Patient verbalized understanding of diagnosis and treatments explained. Advised to call sooner prior to next visit it any questions/concerns arise. Dictation was accomplished with the use of Dragon voice recognition software, which is prone to medical misidentifications and grammatical errors. This are unintentional and the practitioner does try to identify and correct these, but some could still be present. Please do not hesitate to contact practitioner for clarification. 03/06/2025 Pain in left hand (ICD-10 - M79.642) Nic is a 69-year-old male who presents to the office today for a f/u.. #Hip lump: At this time due to patient's extensive history of cancer I feel as though obtaining a CAT scan with contrast would be most appropriate for further evaluation of this rather large mass on patient's left trochanter of femur. I called Dr. Angela Guevara's office and left a voicemail in regards to his thoughts on having the patient undergo the CT scan with or without contrast. Will hold off on placing order until we hear back from the percussion tuner. He is to call our office tomorrow morning with an update. 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 #Oncology appointment: Scheduled for May, patient does have a CT scan scheduled for June 11 and at oncology appoint with Dr. Conn on June 21.States that he always obtains blood work before these appointments. #Nephrolithotomy: patient underwent a left percutaneous nephrolithotomy: patient does follow regualry with . saw on Nov 20 and there are no reported changes, recommended potassium citrate. #Hyperlipidemia: Recent lab values demonstrated a cholesterol of 240, LDL of 153 and non-HDL of 182, continue taking rosuvastatin 10 mg once daily. #CBC abnormality: Recent CBC, MCHC 31.9, RDW 15.4 and lymphocytes of 0.51.. #CMP: Recent...BUN 31, creatinine 1.65, EGFR 34. Patient does regularly follow with nephrology #Microalbumin creatinine ratio: Microalbumin 72.5, microalbumin creatinine ratio 129. Patient does follow regularly with urology and nephrology. #Hx Bladder cancer: Patient follows with urology, Dr. Godwin from [facility]. Patient had a urostomy placed in 2008. Admits that he is cancer free. Patient states that he follows with the specialist regularly, recently had surgery to remove his kidney stones, states the surgery went well. Appointmentand US in March 2025. #[facility] Surgeon: They have not called him, was following with pt. # Hx Colorectal cancer: Patient had a colostomy bag placed in December. Patient states that the surgery was completed by Carter Morales MD at [facility]. Patient states that he is unsure of whether or not he will be obtaining future colonoscopies, has an appointment coming up is unsure of the date. Additionally patient states that he is following with MONIQUE Rothman from [place], awaiting appointment with screening recommendation. will try and request [employer] records for the patient to bring to [facility]. 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 He started chemoradiation with Xeloda on 06/14/2023, completed radition on 07/27/2023.Started neoadjuvant FOLFOX on 08/24/23 and completed 6 full cycles. underwent an APR on 12/26[facility]2022[facility] #History of Stage III Bladder Cancer: Treated with neoadjucant MVAC, chemotherpy was followed by cystectomy according to prior oncology note from 08/21/24. #Urology note states that PET scan/CT scan performed on May 26, 2023 showed uptake in the rectum, uptake in the sigmoid colon near the rectosigmoid junction, and uptake in the 0.8 cm right perirectal node. #History of colo rectal cancer: Patient did undergo an APR which was performed by Dr. Morales in [place] at [facility], according to the urology note the pathology revealed a T2 grade 2 adenocarcinoma. At this time patient is trying to obtain a follow-up with the same provider, or obtain a follow-up with a different GI provider. #GI note from Edmar Najera: Patient was seen by [facility] gastroenterology on 06/26/2024. The note reports that they were trying to obtain the surgery report from [facility] as well as inquiring the colorectal surgeons opinion about timing for repeat colonoscopy. Follows with as needed. #Parkinsonian syndrome: Patient is on carbidopa-levodopa 10-500 mg tablet orally 3 times a day. Patient states that he was began on this medication by his previous neurologist due to a side effect from chemotherapy. Patient [place]. Ibrahim [place] [facility] [place], [place] notes. Saw last in Nov 2024, was started on Lyrice 150mg QD... would benefit from BID.. he will call #Kidney stones: Patient had a nephrostomy placed in December 2023, he has had it replaced every 3 months. Patient states that he sees Dr. Angela Guevara for nephrology. Patient states that his last reported GFR was over 50%. Reports that his right kidney is completely atrophied and is no longer working. Patient states that he is unsure whether or not he is a candidate for kidney transplant. States his nephrostomy tube was removed, September 25. #Gout: Patient states that he is on Febuxostat for his gout. All questions have been answered to patient's satisfaction. Patient verbalized understanding of diagnosis and treatments explained. Advised to call sooner prior to next visit it any questions/concerns arise. Case discussed with Kelby MCKENZIE who reviewed the assessment and plan. Chart, medications, labs, vital signs reviewed. Dictation was accomplished with the use of [employer] voice recognition software, which is prone to medical misidentifications and grammatical errors. This are unintentional and the practitioner does try to identify and correct these, but some could still be present. Please do not hesitate to contact practitioner for clarification. 02/20/2025 Hypercholesteremia (ICD-10 - E78.00) Nic is a 69-year-old male who presents to the office today for a f/u.. Patient is medically complex, I do not have the specialist notes at this time, will request them. #Phalanges: Bilateral hand x-ray ordered today as patient does have tenderness upon palpation of the trapezius bones bilaterally, he is to call arthritis tx center #Oncology appointment: Scheduled for May, patient does have a CT scan scheduled for June 11 and at oncology appoint with Dr. Conn on June 21.States that he always obtains blood work before these appointments. #Nephrolithotomy: patient underwent a left percutaneous nephrolithotomy: patient does follow regualry with . saw on Nov 20 and there are no reported changes, recommended potassium citrate. #Hyperlipidemia: Recent lab values demonstrated a cholesterol of 240, LDL of 153 and non-HDL of 182, continue taking rosuvastatin 10 mg once daily. #CBC abnormality: Recent CBC, MCHC 31.9, RDW 15.4 and lymphocytes of 0.51.. #CMP: Recent...BUN 31, creatinine 1.65, EGFR 34. Patient does regularly follow with nephrology #Microalbumin creatinine ratio: Microalbumin 72.5, microalbumin creatinine ratio 129. Patient does follow regularly with urology and nephrology. #Hx Bladder cancer: Patient follows with urology, Dr. Godwin from [facility]. Patient had a urostomy placed in 2008. Admits that he is cancer free. Patient states that he follows with the specialist regularly, recently had surgery to remove his kidney stones, states the surgery went well. Appointmentand US in March 2025. #[facility] Surgeon: They have not called him, was following with pt. # Hx Colorectal cancer: Patient had a colostomy bag placed in December. Patient states that the surgery was completed by Carter Morales MD at [facility]. Patient states that he is unsure of whether or not he will be obtaining future colonoscopies, has an appointment coming up is unsure of the date. Additionally patient states that he is following with MONIQUE Rothman from [place], awaiting appointment with screening recommendation. will try and request [employer] records for the patient to bring to [facility]. 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 He started chemoradiation with Xeloda on 06/14/2023, completed radition on 07/27/2023.Started neoadjuvant FOLFOX on 08/24/23 and completed 6 full cycles. underwent an APR on 12/26/2022. Dr Conn Sister Ian next month. #History of Stage III Bladder Cancer: Treated with neoadjucant MVAC, chemotherpy was followed by cystectomy according to prior oncology note from 08/21/24. #Urology note states that PET scan/CT scan performed on May 26, 2023 showed uptake in the rectum, uptake in the sigmoid colon near the rectosigmoid junction, and uptake in the 0.8 cm right perirectal node. #History of colo rectal cancer: Patient did undergo an APR which was performed by Dr. Morales in [place] at [facility], according to the urology note the pathology revealed a T2 grade 2 adenocarcinoma. At this time patient is trying to obtain a follow-up with the same provider, or obtain a follow-up with a different GI provider. #GI note from Edmar Najera: Patient was seen by [facility] gastroenterology on 06/26/2024. The note reports that they were trying to obtain the surgery report from [facility] as well as inquiring the colorectal surgeons opinion about timing for repeat colonoscopy. Follows with as needed. #Parkinsonian syndrome: Patient is on carbidopa-levodopa 10-500 mg tablet orally 3 times a day. Patient states that he was began on this medication by his previous neurologist due to a side effect from chemotherapy. Patient saw [place]. Ibrahim [place] [facility] [place], requesting notes. Saw last in Nov 2024, was started on Lyrice 150mg QD... would benefit from BID.. he will call #Kidney stones: Patient had a nephrostomy placed in December 2023, he has had it replaced every 3 months. Patient states that he sees Dr. Angela Guevara for nephrology. Patient states that his last reported GFR was over 50%. Reports that his right kidney is completely atrophied and is no longer working. Patient states that he is unsure whether or not he is a candidate for kidney transplant. States his nephrostomy tube was removed, September 25. #Gout: Patient states that he is on Febuxostat for his gout. All questions have been answered to patient's satisfaction. Patient verbalized understanding of diagnosis and treatments explained. Advised to call sooner prior to next visit it any questions/concerns arise. Case discussed with Kelby MCKENZIE who reviewed the assessment and plan. Chart, medications, labs, vital signs reviewed. Dictation was accomplished with the use of [employer] voice recognition software, which is prone to medical misidentifications and grammatical errors. This are unintentional and the practitioner does try to identify and correct these, but some could still be present. Please do not hesitate to contact practitioner for clarification. 09/18/2024 History of colorectal cancer (ICD-10 - Z85.048) Nic is a 69-year-old male who presents to the office today for a follow-up. Patient is medically complex, I do not have the specialist notes at this time, will request them. #Nephrolithotomy: patient underwent a left percutaneous nephrolithotomy: patient does follow regualry with #Hx Bladder cancer: Patient follows with urology, Dr. Jordan and Dr. Benson [facility]. Patient had a urostomy placed in 2008. Admits that he is cancer free. Patient states that he follows with the specialist regularly, recently had surgery to remove his kidney stones, states the surgery went well. # Hx Colorectal cancer: Patient had a colostomy bag placed in December. Patient states that the surgery was completed by Carter Morales MD at [facility]. Patient states that he is unsure of whether or not he will be obtaining future colonoscopies, has an appointment coming up is unsure of the date. Additionally patient states that he is following with MONIQUE Rothman from [place], awaiting appointment. will try and request [employer] records for the patient to bring to [facility]. 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 He started chemoradiation with Xeloda on 06/14/2023, completed radition on 07/27/2023.Started neoadjuvant FOLFOX on 08/24/23 and completed 6 full cycles. underwent an APR on 12/26/2022. #History of Stage III Bladder Cancer: Treated with neoadjucant MVAC, chemotherpy was followed by cystectomy according to prior oncology note from 08/21/24. #Urology note states that PET scan/CT scan performed on May 26, 2023 showed uptake in the rectum, uptake in the sigmoid colon near the rectosigmoid junction, and uptake in the 0.8 cm right perirectal node. #History of colo rectal cancer: Patient did undergo an APR which was performed by Dr. Morales in [place] at [facility], according to the urology note the pathology revealed a T2 grade 2 adenocarcinoma. At this time patient is trying to obtain a follow-up with the same provider, or obtain a follow-up with a different GI provider. #GI note from Edmar Najera: Patient was seen by [facility] gastroenterology on 06/26/2024. The note reports that they were trying to obtain the surgery report from [facility] as well as inquiring the colorectal surgeons opinion about timing for repeat colonoscopy. #Parkinsonian syndrome: Patient is on carbidopa-levodopa 10-500 mg tablet orally 3 times a day. Patient states that he was began on this medication by his previous neurologist due to a side effect from chemotherapy. [place] [facility] [place] notes. #Kidney stones: Patient had a nephrostomy placed in December 2023, he has had it replaced every 3 months. Patient states that he sees Dr. Angela Guevara for nephrology. Patient states that his last reported GFR was over 50%. Reports that his right kidney is completely atrophied and is no longer working. Patient states that he is unsure whether or not he is a candidate for kidney transplant. States his nephrostomy tube may be removed soon, has appointment September 25. #High cholesterol: Patient states that he is taking rosuvastatin 10 mg daily, states that this was previously monitored by his previous primary care provider. I will order labs to ensure he has a sufficient values. #Gout: Patient states that he is on Febuxostat for his gout. Patient has not admitted to any pain in her joints today, or inflammation. #Anemia: Patient is currently taking iron supplements once daily. I will order a CBC to ensure his hemoglobin and hematocrit are within normal limits. All questions have been answered to patient's satisfaction. Patient verbalized understanding of diagnosis and treatments explained. Advised to call sooner prior to next visit it any questions/concerns arise. Case discussed with collaborating physician Kelby Mendenhall who reviewed the assessment and plan. Chart, medications, labs, vital signs reviewed. Dictation was accomplished with the use of [employer] voice recognition software, which is prone to medical misidentifications and grammatical errors. This are unintentional and the practitioner does try to identify and correct these, but some could still be present. Please do not hesitate to contact practitioner for clarification. 11/21/2024 Encounter for screening for other disorder (ICD-10 - Z13.89) Nic is a 69-year-old male who presents to the office today for a MWV. Patient is medically complex, I do not have the specialist notes at this time, will request them. #Nephrolithotomy: patient underwent a left percutaneous nephrolithotomy: patient does follow regualry with . saw on Nov 20 and there are no reported changes, recommended potassium citrate. #Hyperlipidemia: Recent lab values demonstrated a cholesterol of 240, LDL of 153 and non-HDL of 182, continue taking rosuvastatin 10 mg once daily. Patient states that these labs were nonfasting as he did have creamer in his coffee this morning #CBC abnormality: MCHC 31.9, RDW 15.4 and lymphocytes of 0.51 Send #CMP: BUN 31, creatinine 1.65, EGFR 34. Patient does regularly follow with nephrology #Microalbumin creatinine ratio: Microalbumin 72.5, microalbumin creatinine ratio 129. Patient does follow regularly with urology and nephrology. #Hx Bladder cancer: Patient follows with urology, Dr. Godwin from [facility]. Patient had a urostomy placed in 2008. Admits that he is cancer free. Patient states that he follows with the specialist regularly, recently had surgery to remove his kidney stones, states the surgery went well. Appointment in March 2025. #[facility] Surgeon: They have not called him, was following with pt. # Hx Colorectal cancer: Patient had a colostomy bag placed in December. Patient states that the surgery was completed by Carter Morales MD at [facility]. Patient states that he is unsure of whether or not he will be obtaining future colonoscopies, has an appointment coming up is unsure of the date. Additionally patient states that he is following with MONIQUE Rothman from [place], awaiting appointment with screening recommendation. will try and request [employer] records for the patient to bring to [facility]. 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 He started chemoradiation with Xeloda on 06/14/2023, completed radition on 07/27/2023.Started neoadjuvant FOLFOX on 08/24/23 and completed 6 full cycles. underwent an APR on 12/26/2022. Dr Conn Sister Bertrandrome next month. #History of Stage III Bladder Cancer: Treated with neoadjucant MVAC, chemotherpy was followed by cystectomy according to prior oncology note from 08/21/24. #Urology note states that PET scan/CT scan performed on May 26, 2023 showed uptake in the rectum, uptake in the sigmoid colon near the rectosigmoid junction, and uptake in the 0.8 cm right perirectal node. #History of colo rectal cancer: Patient did undergo an APR which was performed by Dr. Morales in [place] at [facility], according to the urology note the pathology revealed a T2 grade 2 adenocarcinoma. At this time patient is trying to obtain a follow-up with the same provider, or obtain a follow-up with a different GI provider. #GI note from Edmar Najera: Patient was seen by [facility] gastroenterology on 06/26/2024. The note reports that they were trying to obtain the surgery report from [facility] as well as inquiring the colorectal surgeons opinion about timing for repeat colonoscopy. Follows with as needed. #Parkinsonian syndrome: Patient is on carbidopa-levodopa 10-500 mg tablet orally 3 times a day. Patient states that he was began on this medication by his previous neurologist due to a side effect from chemotherapy. Patient saw Dr. Ibrahim [place] [facility] [place], requesting notes. Has a follow up scheduled for November 27 2024. #Kidney stones: Patient had a nephrostomy placed in December 2023, he has had it replaced every 3 months. Patient states that he sees Dr. Angela Guevara for nephrology. Patient states that his last reported GFR was over 50%. Reports that his right kidney is completely atrophied and is no longer working. Patient states that he is unsure whether or not he is a candidate for kidney transplant. States his nephrostomy tube was removed, September 25. #High cholesterol: Patient states that he is taking rosuvastatin 10 mg daily, states that this was previously monitored by his previous primary care provider. #Gout: Patient states that he is on Febuxostat for his gout. Patient has not admitted to any pain in her joints today, or inflammation. #Anemia: Patient is currently taking iron supplements once daily. I will order a CBC to ensure his hemoglobin and hematocrit are within normal limits. Medicare Wellness Patient is here for a Medicare wellness visit. Complete paperwork was reviewed and updated and has been filed and scan. Depression screen completed. Alcohol AUDIT SCREEN completed. Obesity screen completed. Cardiovascular risk stratification screen completed. Cognition assessed and within reasonable limits Fall risk assessed Discussed healthcare proxy. Discussed [place] order for life sustaining treatment, end-of-life issues, intubation and resuscitation dialysis artificial nutrition and hydration is appropriate. All questions have been answered to patient's satisfaction. Patient verbalized understanding of diagnosis and treatments explained. Advised to call sooner prior to next visit it any questions/concerns arise. Case discussed with Kelby MCKENZIE who reviewed the assessment and plan. Chart, medications, labs, vital signs reviewed. Dictation was accomplished with the use of [employer] voice recognition software, which is prone to medical misidentifications and grammatical errors. This are unintentional and the practitioner does try to identify and correct these, but some could still be present. Please do not hesitate to contact practitioner for clarification. 08/16/2024 High cholesterol (ICD-10 - E78.00) Nic is a 69-year-old male who presents to the office today for new patient evaluation. Patient is welcomed to the practice. They are coming from [facility]. Last complete physical exam with labs unknown.medications, medical history, allergies, surgeries, hospitalizations, family history, and social history were reviewed. Problem list updated. Cardiopulmonary and abdominal exam unremarkable. Patient will follow-up in office. All patient questions answered at this time. Patient is medically complex, I do not have the specialist notes at this time, will request them. #Hx Bladder cancer: Patient follows with urology, Dr. Jordan and Dr. Godwintena [facility]. Patient had a urostomy placed in 2008. Admits that he is cancer free. Patient states that he follows with the specialist regularly # Hx Colorectal cancer: Patient had a colostomy bag placed in December. Patient states that the surgery was completed by Carter Morales MD at [facility]. Patient states that he is unsure of whether or not he will be obtaining future colonoscopies, has an appointment coming up is unsure of the date. Additionally patient states that he is following with MONIQUE Rothman from [place]. #Parkinsonian syndrome: Patient is on carbidopa-levodopa 10-500 mg tablet orally 3 times a day. Patient states that he was began on this medication by his previous neurologist due to a side effect from chemotherapy. Patient has an appointment on August 28 at [facility] with Dr. Ibrahim. #Kidney stones: Patient had a nephrostomy placed in December 2023, he has had it replaced every 3 months. Patient states that he sees Dr. Angela Guevara for nephrology. Patient states that his last reported GFR was over 50%. Reports that his right kidney is completely atrophied and is no longer working. Patient states that he is unsure whether or not he is a candidate for kidney transplant. #High cholesterol: Patient states that he is taking rosuvastatin 10 mg daily, states that this was previously monitored by his previous primary care provider. I will order labs to ensure he has a sufficient values. #Gout: Patient states that he is on Febuxostat for his gout. Patient has not admitted to any pain in her joints today, or inflammation. #Anemia: Patient is currently taking iron supplements once daily. I will order a CBC to ensure his hemoglobin and hematocrit are within normal limits. All questions have been answered to patient's satisfaction. Patient verbalized understanding of diagnosis and treatments explained. Advised to call sooner prior to next visit it any questions/concerns arise. Case discussed with collaborating physician Lebron Mendenhall who reviewed the assessment and plan. Chart, medications, labs, vital signs reviewed. Dictation was accomplished with the use of [employer] voice recognition software, which is prone to medical misidentifications and grammatical errors. This are unintentional and the practitioner does try to identify and correct these, but some could still be present. Please do not hesitate to contact practitioner for clarification. 09/18/2024 High cholesterol (ICD-10 - E78.00) Nic is a 69-year-old male who presents to the office today for a follow-up. Patient is medically complex, I do not have the specialist notes at this time, will request them. #Nephrolithotomy: patient underwent a left percutaneous nephrolithotomy: patient does follow regualry with #Hx Bladder cancer: Patient follows with urology, Dr. Jordan and Dr. Benson [facility]. Patient had a urostomy placed in 2008. Admits that he is cancer free. Patient states that he follows with the specialist regularly, recently had surgery to remove his kidney stones, states the surgery went well. # Hx Colorectal cancer: Patient had a colostomy bag placed in December. Patient states that the surgery was completed by Carter Morales MD at [facility]. Patient states that he is unsure of whether or not he will be obtaining future colonoscopies, has an appointment coming up is unsure of the date. Additionally patient states that he is following with MONIQUE Rothman from [place], awaiting appointment. will try and request [employer] records for the patient to bring to [facility]. 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 He started chemoradiation with Xeloda on 06/14/2023, completed radition on 07/27/2023.Started neoadjuvant FOLFOX on 08/24/23 and completed 6 full cycles. underwent an APR on 12/26/2022. #History of Stage III Bladder Cancer: Treated with neoadjucant MVAC, chemotherpy was followed by cystectomy according to prior oncology note from 08/21/24. #Urology note states that PET scan/CT scan performed on May 26, 2023 showed uptake in the rectum, uptake in the sigmoid colon near the rectosigmoid junction, and uptake in the 0.8 cm right perirectal node. #History of colo rectal cancer: Patient did undergo an APR which was performed by Dr. Morales in [place] at [facility], according to the urology note the pathology revealed a T2 grade 2 adenocarcinoma. At this time patient is trying to obtain a follow-up with the same provider, or obtain a follow-up with a different GI provider. #GI note from Edmar Najera: Patient was seen by [facility] gastroenterology on 06/26/2024. The note reports that they were trying to obtain the surgery report from [facility] as well as inquiring the colorectal surgeons opinion about timing for repeat colonoscopy. #Parkinsonian syndrome: Patient is on carbidopa-levodopa 10-500 mg tablet orally 3 times a day. Patient states that he was began on this medication by his previous neurologist due to a side effect from chemotherapy. Patient saw [place] [facility] [place], requesting notes. #Kidney stones: Patient had a nephrostomy placed in December 2023, he has had it replaced every 3 months. Patient states that he sees Dr. Angela Guevara for nephrology. Patient states that his last reported GFR was over 50%. Reports that his right kidney is completely atrophied and is no longer working. Patient states that he is unsure whether or not he is a candidate for kidney transplant. States his nephrostomy tube may be removed soon, has appointment September 25. #High cholesterol: Patient states that he is taking rosuvastatin 10 mg daily, states that this was previously monitored by his previous primary care provider. I will order labs to ensure he has a sufficient values. #Gout: Patient states that he is on Febuxostat for his gout. Patient has not admitted to any pain in her joints today, or inflammation. #Anemia: Patient is currently taking iron supplements once daily. I will order a CBC to ensure his hemoglobin and hematocrit are within normal limits. All questions have been answered to patient's satisfaction. Patient verbalized understanding of diagnosis and treatments explained. Advised to call sooner prior to next visit it any questions/concerns arise. Case discussed with collaborating physician Kelby Mendenhall who reviewed the assessment and plan. Chart, medications, labs, vital signs reviewed. Dictation was accomplished with the use of [employer] voice recognition software, which is prone to medical misidentifications and grammatical errors. This are unintentional and the practitioner does try to identify and correct these, but some could still be present. Please do not hesitate to contact practitioner for clarification. 08/16/2024 Parkinsonian features (ICD-10 - R29.818) Nic is a 69-year-old male who presents to the office today for new patient evaluation. Patient is welcomed to the practice. They are coming from [facility]. Last complete physical exam with labs unknown.medications, medical history, allergies, surgeries, hospitalizations, family history, and social history were reviewed. Problem list updated. Cardiopulmonary and abdominal exam unremarkable. Patient will follow-up in office. All patient questions answered at this time. Patient is medically complex, I do not have the specialist notes at this time, will request them. #Hx Bladder cancer: Patient follows with urology, Dr. Jordan and Dr. Benson [facility]. Patient had a urostomy placed in 2008. Admits that he is cancer free. Patient states that he follows with the specialist regularly # Hx Colorectal cancer: Patient had a colostomy bag placed in December. Patient states that the surgery was completed by Carter Morales MD at [facility]. Patient states that he is unsure of whether or not he will be obtaining future colonoscopies, has an appointment coming up is unsure of the date. Additionally patient states that he is following with MONIQUE Rothman from [place]. #Parkinsonian syndrome: Patient is on carbidopa-levodopa 10-500 mg tablet orally 3 times a day. Patient states that he was began on this medication by his previous neurologist due to a side effect from chemotherapy. Patient has an appointment on August 28 at [facility] with Dr. Ibrahim. #Kidney stones: Patient had a nephrostomy placed in December 2023, he has had it replaced every 3 months. Patient states that he sees Dr. Angela Guevara for nephrology. Patient states that his last reported GFR was over 50%. Reports that his right kidney is completely atrophied and is no longer working. Patient states that he is unsure whether or not he is a candidate for kidney transplant. #High cholesterol: Patient states that he is taking rosuvastatin 10 mg daily, states that this was previously monitored by his previous primary care provider. I will order labs to ensure he has a sufficient values. #Gout: Patient states that he is on Febuxostat for his gout. Patient has not admitted to any pain in her joints today, or inflammation. #Anemia: Patient is currently taking iron supplements once daily. I will order a CBC to ensure his hemoglobin and hematocrit are within normal limits. All questions have been answered to patient's satisfaction. Patient verbalized understanding of diagnosis and treatments explained. Advised to call sooner prior to next visit it any questions/concerns arise. Case discussed with collaborating physician Lebron Mendenhall who reviewed the assessment and plan. Chart, medications, labs, vital signs reviewed. Dictation was accomplished with the use of [employer] voice recognition software, which is prone to medical misidentifications and grammatical errors. This are unintentional and the practitioner does try to identify and correct these, but some could still be present. Please do not hesitate to contact practitioner for clarification. 11/21/2024 Other specified counseling (ICD-10 - Z71.89) Nic is a 69-year-old male who presents to the office today for a MWV. Patient is medically complex, I do not have the specialist notes at this time, will request them. #Nephrolithotomy: patient underwent a left percutaneous nephrolithotomy: patient does follow regualry with . saw on Nov 20 and there are no reported changes, recommended potassium citrate. #Hyperlipidemia: Recent lab values demonstrated a cholesterol of 240, LDL of 153 and non-HDL of 182, continue taking rosuvastatin 10 mg once daily. Patient states that these labs were nonfasting as he did have creamer in his coffee this morning #CBC abnormality: MCHC 31.9, RDW 15.4 and lymphocytes of 0.51 Send #CMP: BUN 31, creatinine 1.65, EGFR 34. Patient does regularly follow with nephrology #Microalbumin creatinine ratio: Microalbumin 72.5, microalbumin creatinine ratio 129. Patient does follow regularly with urology and nephrology. #Hx Bladder cancer: Patient follows with urology, Dr. Godwin from [facility]. Patient had a urostomy placed in 2008. Admits that he is cancer free. Patient states that he follows with the specialist regularly, recently had surgery to remove his kidney stones, states the surgery went well. Appointment in March 2025. #[facility] Surgeon: They have not called him, was following with pt. # Hx Colorectal cancer: Patient had a colostomy bag placed in December. Patient states that the surgery was completed by Carter Morales MD at [facility]. Patient states that he is unsure of whether or not he will be obtaining future colonoscopies, has an appointment coming up is unsure of the date. Additionally patient states that he is following with MONIQUE Rothman from [place], awaiting appointment with screening recommendation. will try and request [employer] records for the patient to bring to [facility]. 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 He started chemoradiation with Xeloda on 06/14/2023, completed radition on 07/27/2023.Started neoadjuvant FOLFOX on 08/24/23 and completed 6 full cycles. underwent an APR on 12/26/2022. Dr Fabien Sister Ian next month. #History of Stage III Bladder Cancer: Treated with neoadjucant MVAC, chemotherpy was followed by cystectomy according to prior oncology note from 08/21/24. #Urology note states that PET scan/CT scan performed on May 26, 2023 showed uptake in the rectum, uptake in the sigmoid colon near the rectosigmoid junction, and uptake in the 0.8 cm right perirectal node. #History of colo rectal cancer: Patient did undergo an APR which was performed by Dr. Morales in [place] at [facility], according to the urology note the pathology revealed a T2 grade 2 adenocarcinoma. At this time patient is trying to obtain a follow-up with the same provider, or obtain a follow-up with a different GI provider. #GI note from Edmar Najera: Patient was seen by [facility] gastroenterology on 06/26/2024. The note reports that they were trying to obtain the surgery report from [facility] as well as inquiring the colorectal surgeons opinion about timing for repeat colonoscopy. Follows with as needed. #Parkinsonian syndrome: Patient is on carbidopa-levodopa 10-500 mg tablet orally 3 times a day. Patient states that he was began on this medication by his previous neurologist due to a side effect from chemotherapy. Patient [place] [facility]. Has a follow up scheduled for November 27 2024. #Kidney stones: Patient had a nephrostomy placed in December 2023, he has had it replaced every 3 months. Patient states that he sees Dr. Angela Guevara for nephrology. Patient states that his last reported GFR was over 50%. Reports that his right kidney is completely atrophied and is no longer working. Patient states that he is unsure whether or not he is a candidate for kidney transplant. States his nephrostomy tube was removed, September 25. #High cholesterol: Patient states that he is taking rosuvastatin 10 mg daily, states that this was previously monitored by his previous primary care provider. #Gout: Patient states that he is on Febuxostat for his gout. Patient has not admitted to any pain in her joints today, or inflammation. #Anemia: Patient is currently taking iron supplements once daily. I will order a CBC to ensure his hemoglobin and hematocrit are within normal limits. Medicare Wellness Patient is here for a Medicare wellness visit. Complete paperwork was reviewed and updated and has been filed and scan. Depression screen completed. Alcohol AUDIT SCREEN completed. Obesity screen completed. Cardiovascular risk stratification screen completed. Cognition assessed and within reasonable limits Fall risk assessed Discussed healthcare proxy. Discussed [place] order for life sustaining treatment, end-of-life issues, intubation and resuscitation dialysis artificial nutrition and hydration is appropriate. All questions have been answered to patient's satisfaction. Patient verbalized understanding of diagnosis and treatments explained. Advised to call sooner prior to next visit it any questions/concerns arise. Case discussed with Kelby MCKENZIE who reviewed the assessment and plan. Chart, medications, labs, vital signs reviewed. Dictation was accomplished with the use of [employer] voice recognition software, which is prone to medical misidentifications and grammatical errors. This are unintentional and the practitioner does try to identify and correct these, but some could still be present. Please do not hesitate to contact practitioner for clarification. 02/20/2025 Nephrolithiasis (ICD-10 - N20.0) Nic is a 69-year-old male who presents to the office today for a f/u.. Patient is medically complex, I do not have the specialist notes at this time, will request them. #Phalanges: Bilateral hand x-ray ordered today as patient does have tenderness upon palpation of the trapezius bones bilaterally, he is to call arthritis tx center #Oncology appointment: Scheduled for May, patient does have a CT scan scheduled for June 11 and at oncology appoint with Dr. Conn on June 21.States that he always obtains blood work before these appointments. #Nephrolithotomy: patient underwent a left percutaneous nephrolithotomy: patient does follow regualry with . saw on Nov 20 and there are no reported changes, recommended potassium citrate. #Hyperlipidemia: Recent lab values demonstrated a cholesterol of 240, LDL of 153 and non-HDL of 182, continue taking rosuvastatin 10 mg once daily. #CBC abnormality: Recent CBC, MCHC 31.9, RDW 15.4 and lymphocytes of 0.51.. #CMP: Recent...BUN 31, creatinine 1.65, EGFR 34. Patient does regularly follow with nephrology #Microalbumin creatinine ratio: Microalbumin 72.5, microalbumin creatinine ratio 129. Patient does follow regularly with urology and nephrology. #Hx Bladder cancer: Patient follows with urology, Dr. Godwin from [facility]. Patient had a urostomy placed in 2008. Admits that he is cancer free. Patient states that he follows with the specialist regularly, recently had surgery to remove his kidney stones, states the surgery went well. Appointmentand US in March 2025. #[facility] Surgeon: They have not called him, was following with pt. # Hx Colorectal cancer: Patient had a colostomy bag placed in December. Patient states that the surgery was completed by Carter Morales MD at [facility]. Patient states that he is unsure of whether or not he will be obtaining future colonoscopies, has an appointment coming up is unsure of the date. Additionally patient states that he is following with MONIQUE Rothman from [place], awaiting appointment with screening recommendation. will try and request [employer] records for the patient to bring to [facility]. 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 He started chemoradiation with Xeloda on 06/14/2023, completed radition on 07/27/2023.Started neoadjuvant FOLFOX on 08/24/23 and completed 6 full cycles. underwent an APR on 12/26/2022. Dr Conn Sister Ian next month. #History of Stage III Bladder Cancer: Treated with neoadjucant MVAC, chemotherpy was followed by cystectomy according to prior oncology note from 08/21/24. #Urology note states that PET scan/CT scan performed on May 26, 2023 showed uptake in the rectum, uptake in the sigmoid colon near the rectosigmoid junction, and uptake in the 0.8 cm right perirectal node. #History of colo rectal cancer: Patient did undergo an APR which was performed by Dr. Morales in [place] at [facility], according to the urology note the pathology revealed a T2 grade 2 adenocarcinoma. At this time patient is trying to obtain a follow-up with the same provider, or obtain a follow-up with a different GI provider. #GI note from Edmar Najera: Patient was seen by [facility] gastroenterology on 06/26/2024. The note reports that they were trying to obtain the surgery report from [facility] as well as inquiring the colorectal surgeons opinion about timing for repeat colonoscopy. Follows with as needed. #Parkinsonian syndrome: Patient is on carbidopa-levodopa 10-500 mg tablet orally 3 times a day. Patient states that he was began on this medication by his previous neurologist due to a side effect from chemotherapy. Patient saw [place]. Ibrahim [place] [facility] [place], requesting notes. Saw last in Nov 2024, was started on Lyrice 150mg QD... would benefit from BID.. he will call #Kidney stones: Patient had a nephrostomy placed in December 2023, he has had it replaced every 3 months. Patient states that he sees Dr. Angela Guevara for nephrology. Patient states that his last reported GFR was over 50%. Reports that his right kidney is completely atrophied and is no longer working. Patient states that he is unsure whether or not he is a candidate for kidney transplant. States his nephrostomy tube was removed, September 25. #Gout: Patient states that he is on Febuxostat for his gout. All questions have been answered to patient's satisfaction. Patient verbalized understanding of diagnosis and treatments explained. Advised to call sooner prior to next visit it any questions/concerns arise. Case discussed with Kelby MCKENZIE who reviewed the assessment and plan. Chart, medications, labs, vital signs reviewed. Dictation was accomplished with the use of [employer] voice recognition software, which is prone to medical misidentifications and grammatical errors. This are unintentional and the practitioner does try to identify and correct these, but some could still be present. Please do not hesitate to contact practitioner for clarification. 03/06/2025 Hypercholesteremia (ICD-10 - E78.00) Nic is a 69-year-old male who presents to the office today for a f/u.. #Hip lump: At this time due to patient's extensive history of cancer I feel as though obtaining a CAT scan with contrast would be most appropriate for further evaluation of this rather large mass on patient's left trochanter of femur. I called Dr. Angela Guevara's office and left a voicemail in regards to his thoughts on having the patient undergo the CT scan with or without contrast. Will hold off on placing order until we hear back from the percussion tuner. He is to call our office tomorrow morning with an update. 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 #Oncology appointment: Scheduled for May, patient does have a CT scan scheduled for June 11 and at oncology appoint with Dr. Conn on June 21.States that he always obtains blood work before these appointments. #Nephrolithotomy: patient underwent a left percutaneous nephrolithotomy: patient does follow regualry with . saw on Nov 20 and there are no reported changes, recommended potassium citrate. #Hyperlipidemia: Recent lab values demonstrated a cholesterol of 240, LDL of 153 and non-HDL of 182, continue taking rosuvastatin 10 mg once daily. #CBC abnormality: Recent CBC, MCHC 31.9, RDW 15.4 and lymphocytes of 0.51.. #CMP: Recent...BUN 31, creatinine 1.65, EGFR 34. Patient does regularly follow with nephrology #Microalbumin creatinine ratio: Microalbumin 72.5, microalbumin creatinine ratio 129. Patient does follow regularly with urology and nephrology. #Hx Bladder cancer: Patient follows with urology, Dr. Godwin from [facility]. Patient had a urostomy placed in 2008. Admits that he is cancer free. Patient states that he follows with the specialist regularly, recently had surgery to remove his kidney stones, states the surgery went well. Appointmentand US in March 2025. #[facility]: They have not called him, was following with pt. # Hx Colorectal cancer: Patient had a colostomy bag placed in December. Patient states that the surgery was completed by Carter Morales MD at [facility]. Patient states that he is unsure of whether or not he will be obtaining future colonoscopies, has an appointment coming up is unsure of the date. Additionally patient states that he is following with MONIQUE Rothman from [place], awaiting appointment with screening recommendation. will try and request [employer] records for the patient to bring to [facility]. 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 He started chemoradiation with Xeloda on 06/14/2023, completed radition on 07/27/2023.Started neoadjuvant FOLFOX on 08/24/23 and completed 6 full cycles. underwent an APR on 12/26/2022. Dr Conn Sister Ian next month. #History of Stage III Bladder Cancer: Treated with neoadjucant MVAC, chemotherpy was followed by cystectomy according to prior oncology note from 08/21/24. #Urology note states that PET scan/CT scan performed on May 26, 2023 showed uptake in the rectum, uptake in the sigmoid colon near the rectosigmoid junction, and uptake in the 0.8 cm right perirectal node. #History of colo rectal cancer: Patient did undergo an APR which was performed by Dr. Morales in [place] at [facility], according to the urology note the pathology revealed a T2 grade 2 adenocarcinoma. At this time patient is trying to obtain a follow-up with the same provider, or obtain a follow-up with a different GI provider. #GI note from Edmar Najera: Patient was seen by [facility] gastroenterology on 06/26/2024. The note reports that they were trying to obtain the surgery report from [facility] as well as inquiring the colorectal surgeons opinion about timing for repeat colonoscopy. Follows with as needed. #Parkinsonian syndrome: Patient is on carbidopa-levodopa 10-500 mg tablet orally 3 times a day. Patient states that he was began on this medication by his previous neurologist due to a side effect from chemotherapy. Patient [place]. Ibrahim [place] [facility] [place], requesting notes. Saw last in Nov 2024, was started on Lyrice 150mg QD... would benefit from BID.. he will call #Kidney stones: Patient had a nephrostomy placed in December 2023, he has had it replaced every 3 months. Patient states that he sees Dr. Angela Guevara for nephrology. Patient states that his last reported GFR was over 50%. Reports that his right kidney is completely atrophied and is no longer working. Patient states that he is unsure whether or not he is a candidate for kidney transplant. States his nephrostomy tube was removed, September 25. #Gout: Patient states that he is on Febuxostat for his gout. All questions have been answered to patient's satisfaction. Patient verbalized understanding of diagnosis and treatments explained. Advised to call sooner prior to next visit it any questions/concerns arise. Case discussed with Kelby MCKENZIE who reviewed the assessment and plan. Chart, medications, labs, vital signs reviewed. Dictation was accomplished with the use of [employer] voice recognition software, which is prone to medical misidentifications and grammatical errors. This are unintentional and the practitioner does try to identify and correct these, but some could still be present. Please do not hesitate to contact practitioner for clarification. 03/08/2025 History of colorectal cancer (ICD-10 - Z85.048) 04/17/2025 Hypercholesteremia (ICD-10 - E78.00) Nic is a 69-year-old male who presents to the office today for a f/u.. #Tension Headaches: Per research on [employer], medication such as sumatriptan, amitriptyline have multiple interactions with medications that the patient is on, he is encouraged to discuss tension headache protocol with Dr. Ibrahim at his follow-up. #purpura: Obtaining CBC, iron studies, however patient advised that these are more than likely benign findings #NEOS: Has an appointment on June 19 2025 for hip femoral fluid collection, will try to expidite this process... #Hip lump: 03/15/2025, patient was given IV hydration protocol before and after imaging. Findings included Moderate osteoarthritis of the left hip,No evidence of metastatic disease in the visualized left pelvis or femur, The observation of a circumscribed fluid collection along the surface of the iliotibial band requires clinical correlation. This could represent a relatively subacute or old liquefied hematoma (if there was fall/trauma to the lateral hip). The edema of the overlying subcutaneous tissues could be from trauma or inflammation. No soft tissue gas in this area. The collection could be aspirated if there is clinical suspicion of an infected collection NEOS referral was placed, stsates he has an apt June 19 2025.. 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 #Oncology appointment: Scheduled for May, patient does have a CT scan scheduled for June 11 and at oncology appoint with Dr. Conn on June 21.States that he always obtains blood work before these appointments. #Nephrolithotomy: patient underwent a left percutaneous nephrolithotomy: patient does follow regualry with . saw on Nov 20 and there are no reported changes, recommended potassium citrate. #Hyperlipidemia: Recent lab values demonstrated a cholesterol of 240, LDL of 153 and non-HDL of 182, continue taking rosuvastatin 10 mg once daily. #CBC abnormality: Recent CBC, MCHC 31.9, RDW 15.4 and lymphocytes of 0.51.. Obtaining repeat #CMP: Recent...BUN 31, creatinine 1.65, EGFR 34. Patient does regularly follow with nephrology... #Microalbumin creatinine ratio: Last Microalbumin 72.5, microalbumin creatinine ratio 129. Patient does follow regularly with urology and nephrology. #Hx Bladder cancer: Patient follows with urology, Dr. Santana from [facility]. Patient had a urostomy placed in 2008. Admits that he is cancer free. Patient states that he follows with the specialist regularly, recently had surgery to remove his kidney stones, states the surgery went well. Appointmentand US in March 2025. #[facility] Surgeon: They have not called him, was following with pt. # Hx Colorectal cancer: Patient had a colostomy bag placed in December. Patient states that the surgery was completed by Carter Morales MD at [facility]. Patient states that he is unsure of whether or not he will be obtaining future colonoscopies, has an appointment coming up is unsure of the date. Additionally patient states that he is following with MONIQUE Rothman from [place], awaiting appointment with screening recommendation. will try and request [employer] records for the patient to bring to [facility]. 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 He started chemoradiation with Xeloda on 06/14/2023, completed radition on 07/27/2023.Started neoadjuvant FOLFOX on 08/24/23 and completed 6 full cycles. underwent an APR on 12/26/2022. Dr Conn Sister Ian next month. #History of Stage III Bladder Cancer: Treated with neoadjucant MVAC, chemotherpy was followed by cystectomy according to prior oncology note from 08/21/24. #Urology note states that PET scan/CT scan performed on May 26, 2023 showed uptake in the rectum, uptake in the sigmoid colon near the rectosigmoid junction, and uptake in the 0.8 cm right perirectal node. #History of colo rectal cancer: Patient did undergo an APR which was performed by Dr. Morales in [place] at [facility], according to the urology note the pathology revealed a T2 grade 2 adenocarcinoma. At this time patient is trying to obtain a follow-up with the same provider, or obtain a follow-up with a different GI provider. #GI note from Edmar Najera: Patient was seen by [facility] gastroenterology on 06/26/2024. The note reports that they were trying to obtain the surgery report from [facility] as well as inquiring the colorectal surgeons opinion about timing for repeat colonoscopy. Follows with as needed. #Parkinsonian syndrome: Patient is on carbidopa-levodopa 10-500 mg tablet orally 3 times a day. Patient states that he was began on this medication by his previous neurologist due to a side effect from chemotherapy. Patient [place]. Ibrahim [place] [facility] [place], requesting notes. Saw last in Nov 2024..Continue Lyrice 150mg BID.. F/u May 28 #Kidney stones: Patient had a nephrostomy placed in December 2023, he has had it replaced every 3 months. Patient states that he sees Dr. Angela Guevara for nephrology. Patient states that his last reported GFR was over 50%. Reports that his right kidney is completely atrophied and is no longer working. Patient states that he is unsure whether or not he is a candidate for kidney transplant. States his nephrostomy tube was removed, September 25... F/u is on May 21 2025 #Gout: Patient states that he is on Febuxostat for his gout. All questions have been answered to patient's satisfaction. Patient verbalized understanding of diagnosis and treatments explained. Advised to call sooner prior to next visit it any questions/concerns arise. Dictation was accomplished with the use of [employer] voice recognition software, which is prone to medical misidentifications and grammatical errors. This are unintentional and the practitioner does try to identify and correct these, but some could still be present. Please do not hesitate to contact practitioner for clarification. 04/17/2025 Nephrolithiasis (ICD-10 - N20.0) Nic is a 69-year-old male who presents to the office today for a f/u.. #Tension Headaches: Per research on [employer], medication such as sumatriptan, amitriptyline have multiple interactions with medications that the patient is on, he is encouraged to discuss tension headache protocol with Dr. Ibrahim at his follow-up. #purpura: Obtaining CBC, iron studies, however patient advised that these are more than likely benign findings #NEOS: Has an appointment on June 19 2025 for hip femoral fluid collection, will try to expidite this process... #Hip lump: 03/15/2025, patient was given IV hydration protocol before and after imaging. Findings included Moderate osteoarthritis of the left hip,No evidence of metastatic disease in the visualized left pelvis or femur, The observation of a circumscribed fluid collection along the surface of the iliotibial band requires clinical correlation. This could represent a relatively subacute or old liquefied hematoma (if there was fall/trauma to the lateral hip). The edema of the overlying subcutaneous tissues could be from trauma or inflammation. No soft tissue gas in this area. The collection could be aspirated if there is clinical suspicion of an infected collection NEOS referral was placed, stsates he has an apt June 19 2025.. 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 #Oncology appointment: Scheduled for May, patient does have a CT scan scheduled for June 11 and at oncology appoint with Dr. Conn on June 21.States that he always obtains blood work before these appointments. #Nephrolithotomy: patient underwent a left percutaneous nephrolithotomy: patient does follow regualry with . saw on Nov 20 and there are no reported changes, recommended potassium citrate. #Hyperlipidemia: Recent lab values demonstrated a cholesterol of 240, LDL of 153 and non-HDL of 182, continue taking rosuvastatin 10 mg once daily. #CBC abnormality: Recent CBC, MCHC 31.9, RDW 15.4 and lymphocytes of 0.51.. Obtaining repeat #CMP: Recent...BUN 31, creatinine 1.65, EGFR 34. Patient does regularly follow with nephrology... #Microalbumin creatinine ratio: Last Microalbumin 72.5, microalbumin creatinine ratio 129. Patient does follow regularly with urology and nephrology. #Hx Bladder cancer: Patient follows with urology, Dr. Santana from [facility]. Patient had a urostomy placed in 2008. Admits that he is cancer free. Patient states that he follows with the specialist regularly, recently had surgery to remove his kidney stones, states the surgery went well. Appointmentand US in March 2025. #[facility] Surgeon: They have not called him, was following with pt. # Hx Colorectal cancer: Patient had a colostomy bag placed in December. Patient states that the surgery was completed by Carter Morales MD at [facility]. Patient states that he is unsure of whether or not he will be obtaining future colonoscopies, has an appointment coming up is unsure of the date. Additionally patient states that he is following with MONIQUE Rothman from [place], awaiting appointment with screening recommendation. will try and request [employer] records for the patient to bring to [facility]. 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 He started chemoradiation with Xeloda on 06/14/2023, completed radition on 07/27/2023.Started neoadjuvant FOLFOX on 08/24/23 and completed 6 full cycles. underwent an APR on 12/26/2022. Dr Conn Sister Ian next month. #History of Stage III Bladder Cancer: Treated with neoadjucant MVAC, chemotherpy was followed by cystectomy according to prior oncology note from 08/21/24. #Urology note states that PET scan/CT scan performed on May 26, 2023 showed uptake in the rectum, uptake in the sigmoid colon near the rectosigmoid junction, and uptake in the 0.8 cm right perirectal node. #History of colo rectal cancer: Patient did undergo an APR which was performed by Dr. Morales in [place] at [facility], according to the urology note the pathology revealed a T2 grade 2 adenocarcinoma. At this time patient is trying to obtain a follow-up with the same provider, or obtain a follow-up with a different GI provider. #GI note from Edmar Najera: Patient was seen by [facility] gastroenterology on 06/26/2024. The note reports that they were trying to obtain the surgery report from [facility] as well as inquiring the colorectal surgeons opinion about timing for repeat colonoscopy. Follows with as needed. #Parkinsonian syndrome: Patient is on carbidopa-levodopa 10-500 mg tablet orally 3 times a day. Patient states that he was began on this medication by his previous neurologist due to a side effect from chemotherapy. Patient [place] [facility]. Saw last in Nov 2024..Continue Lyrice 150mg BID.. F/u May 28 #Kidney stones: Patient had a nephrostomy placed in December 2023, he has had it replaced every 3 months. Patient states that he sees Dr. Angela Guevara for nephrology. Patient states that his last reported GFR was over 50%. Reports that his right kidney is completely atrophied and is no longer working. Patient states that he is unsure whether or not he is a candidate for kidney transplant. States his nephrostomy tube was removed, September 25... F/u is on May 21 2025 #Gout: Patient states that he is on Febuxostat for his gout. All questions have been answered to patient's satisfaction. Patient verbalized understanding of diagnosis and treatments explained. Advised to call sooner prior to next visit it any questions/concerns arise. Dictation was accomplished with the use of [employer] voice recognition software, which is prone to medical misidentifications and grammatical errors. This are unintentional and the practitioner does try to identify and correct these, but some could still be present. Please do not hesitate to contact practitioner for clarification. 03/06/2025 Nephrolithiasis (ICD-10 - N20.0) Nic is a 69-year-old male who presents to the office today for a f/u.. #Hip lump: At this time due to patient's extensive history of cancer I feel as though obtaining a CAT scan with contrast would be most appropriate for further evaluation of this rather large mass on patient's left trochanter of femur. I called Dr. Angela Guevara's office and left a voicemail in regards to his thoughts on having the patient undergo the CT scan with or without contrast. Will hold off on placing order until we hear back from the percussion tuner. He is to call our office tomorrow morning with an update. 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 #Oncology appointment: Scheduled for May, patient does have a CT scan scheduled for June 11 and at oncology appoint with Dr. Conn on June 21.States that he always obtains blood work before these appointments. #Nephrolithotomy: patient underwent a left percutaneous nephrolithotomy: patient does follow regualry with . saw on Nov 20 and there are no reported changes, recommended potassium citrate. #Hyperlipidemia: Recent lab values demonstrated a cholesterol of 240, LDL of 153 and non-HDL of 182, continue taking rosuvastatin 10 mg once daily. #CBC abnormality: Recent CBC, MCHC 31.9, RDW 15.4 and lymphocytes of 0.51.. #CMP: Recent...BUN 31, creatinine 1.65, EGFR 34. Patient does regularly follow with nephrology #Microalbumin creatinine ratio: Microalbumin 72.5, microalbumin creatinine ratio 129. Patient does follow regularly with urology and nephrology. #Hx Bladder cancer: Patient follows with urology, Dr. Godwin from [facility]. Patient had a urostomy placed in 2008. Admits that he is cancer free. Patient states that he follows with the specialist regularly, recently had surgery to remove his kidney stones, states the surgery went well. Appointmentand US in March 2025. #[facility] Surgeon: They have not called him, was following with pt. # Hx Colorectal cancer: Patient had a colostomy bag placed in December. Patient states that the surgery was completed by Carter Morales MD at [facility]. Patient states that he is unsure of whether or not he will be obtaining future colonoscopies, has an appointment coming up is unsure of the date. Additionally patient states that he is following with MONIQUE Rothman from [place], awaiting appointment with screening recommendation. will try and request [employer] records for the patient to bring to [facility]. 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 He started chemoradiation with Xeloda on 06/14/2023, completed radition on 07/27/2023.Started neoadjuvant FOLFOX on 08/24/23 and completed 6 full cycles. underwent an APR on 12/26/2022. Dr Conn Sister Ian next month. #History of Stage III Bladder Cancer: Treated with neoadjucant MVAC, chemotherpy was followed by cystectomy according to prior oncology note from 08/21/24. #Urology note states that PET scan/CT scan performed on May 26, 2023 showed uptake in the rectum, uptake in the sigmoid colon near the rectosigmoid junction, and uptake in the 0.8 cm right perirectal node. #History of colo rectal cancer: Patient did undergo an APR which was performed by Dr. Morales in [place] at [facility], according to the urology note the pathology revealed a T2 grade 2 adenocarcinoma. At this time patient is trying to obtain a follow-up with the same provider, or obtain a follow-up with a different GI provider. #GI note from Edmar Najera: Patient was seen by [facility] gastroenterology on 06/26/2024. The note reports that they were trying to obtain the surgery report from [facility] as well as inquiring the colorectal surgeons opinion about timing for repeat colonoscopy. Follows with as needed. #Parkinsonian syndrome: Patient is on carbidopa-levodopa 10-500 mg tablet orally 3 times a day. Patient states that he was began on this medication by his previous neurologist due to a side effect from chemotherapy. Patient [place]. Ibrahim [place] [facility] [place], requesting notes. Saw last in Nov 2024, was started on Lyrice 150mg QD... would benefit from BID.. he will call #Kidney stones: Patient had a nephrostomy placed in December 2023, he has had it replaced every 3 months. Patient states that he sees Dr. Angela Guevara for nephrology. Patient states that his last reported GFR was over 50%. Reports that his right kidney is completely atrophied and is no longer working. Patient states that he is unsure whether or not he is a candidate for kidney transplant. States his nephrostomy tube was removed, September 25. #Gout: Patient states that he is on Febuxostat for his gout. All questions have been answered to patient's satisfaction. Patient verbalized understanding of diagnosis and treatments explained. Advised to call sooner prior to next visit it any questions/concerns arise. Case discussed with Kelby MCKENZIE who reviewed the assessment and plan. Chart, medications, labs, vital signs reviewed. Dictation was accomplished with the use of [employer] voice recognition software, which is prone to medical misidentifications and grammatical errors. This are unintentional and the practitioner does try to identify and correct these, but some could still be present. Please do not hesitate to contact practitioner for clarification. 02/20/2025 Bladder carcinoma (ICD-10 - C67.9) Nic is a 69-year-old male who presents to the office today for a f/u.. Patient is medically complex, I do not have the specialist notes at this time, will request them. #Phalanges: Bilateral hand x-ray ordered today as patient does have tenderness upon palpation of the trapezius bones bilaterally, he is to call arthritis tx center #Oncology appointment: Scheduled for May, patient does have a CT scan scheduled for June 11 and at oncology appoint with Dr. Conn on June 21.States that he always obtains blood work before these appointments. #Nephrolithotomy: patient underwent a left percutaneous nephrolithotomy: patient does follow regualry with . saw on Nov 20 and there are no reported changes, recommended potassium citrate. #Hyperlipidemia: Recent lab values demonstrated a cholesterol of 240, LDL of 153 and non-HDL of 182, continue taking rosuvastatin 10 mg once daily. #CBC abnormality: Recent CBC, MCHC 31.9, RDW 15.4 and lymphocytes of 0.51.. #CMP: Recent...BUN 31, creatinine 1.65, EGFR 34. Patient does regularly follow with nephrology #Microalbumin creatinine ratio: Microalbumin 72.5, microalbumin creatinine ratio 129. Patient does follow regularly with urology and nephrology. #Hx Bladder cancer: Patient follows with urology, Dr. Godwin from [facility]. Patient had a urostomy placed in 2008. Admits that he is cancer free. Patient states that he follows with the specialist regularly, recently had surgery to remove his kidney stones, states the surgery went well. Appointmentand US in March 2025. #[facility] Surgeon: They have not called him, was following with pt. # Hx Colorectal cancer: Patient had a colostomy bag placed in December. Patient states that the surgery was completed by Carter Morales MD at [facility]. Patient states that he is unsure of whether or not he will be obtaining future colonoscopies, has an appointment coming up is unsure of the date. Additionally patient states that he is following with MONIQUE Rothman from [place], awaiting appointment with screening recommendation. will try and request [employer] records for the patient to bring to [facility]. 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 He started chemoradiation with Xeloda on 06/14/2023, completed radition on 07/27/2023.Started neoadjuvant FOLFOX on 08/24/23 and completed 6 full cycles. underwent an APR on 12/26/2022. Dr Conn Sister Ian next month. #History of Stage III Bladder Cancer: Treated with neoadjucant MVAC, chemotherpy was followed by cystectomy according to prior oncology note from 08/21/24. #Urology note states that PET scan/CT scan performed on May 26, 2023 showed uptake in the rectum, uptake in the sigmoid colon near the rectosigmoid junction, and uptake in the 0.8 cm right perirectal node. #History of colo rectal cancer: Patient did undergo an APR which was performed by Dr. Morales in [place] at [facility], according to the urology note the pathology revealed a T2 grade 2 adenocarcinoma. At this time patient is trying to obtain a follow-up with the same provider, or obtain a follow-up with a different GI provider. #GI note from Edmar Najera: Patient was seen by [facility] gastroenterology on 06/26/2024. The note reports that they were trying to obtain the surgery report from [facility] as well as inquiring the colorectal surgeons opinion about timing for repeat colonoscopy. Follows with as needed. #Parkinsonian syndrome: Patient is on carbidopa-levodopa 10-500 mg tablet orally 3 times a day. Patient states that he was began on this medication by his previous neurologist due to a side effect from chemotherapy. Patient saw [place]. Ibrahim [place] [facility] [place], requesting notes. Saw last in Nov 2024, was started on Lyrice 150mg QD... would benefit from BID.. he will call #Kidney stones: Patient had a nephrostomy placed in December 2023, he has had it replaced every 3 months. Patient states that he sees Dr. Angela Guevara for nephrology. Patient states that his last reported GFR was over 50%. Reports that his right kidney is completely atrophied and is no longer working. Patient states that he is unsure whether or not he is a candidate for kidney transplant. States his nephrostomy tube was removed, September 25. #Gout: Patient states that he is on Febuxostat for his gout. All questions have been answered to patient's satisfaction. Patient verbalized understanding of diagnosis and treatments explained. Advised to call sooner prior to next visit it any questions/concerns arise. Case discussed with Kelby MCKENZIE who reviewed the assessment and plan. Chart, medications, labs, vital signs reviewed. Dictation was accomplished with the use of [employer] voice recognition software, which is prone to medical misidentifications and grammatical errors. This are unintentional and the practitioner does try to identify and correct these, but some could still be present. Please do not hesitate to contact practitioner for clarification. 09/18/2024 Parkinsonian features (ICD-10 - R29.818) Nic is a 69-year-old male who presents to the office today for a follow-up. Patient is medically complex, I do not have the specialist notes at this time, will request them. #Nephrolithotomy: patient underwent a left percutaneous nephrolithotomy: patient does follow regualry with #Hx Bladder cancer: Patient follows with urology, Dr. Jordan and Dr. Benson [facility]. Patient had a urostomy placed in 2008. Admits that he is cancer free. Patient states that he follows with the specialist regularly, recently had surgery to remove his kidney stones, states the surgery went well. # Hx Colorectal cancer: Patient had a colostomy bag placed in December. Patient states that the surgery was completed by Carter Morales MD at [facility]. Patient states that he is unsure of whether or not he will be obtaining future colonoscopies, has an appointment coming up is unsure of the date. Additionally patient states that he is following with MONIQUE Rothman from [place], awaiting appointment. will try and request [employer] records for the patient to bring to [facility]. 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 He started chemoradiation with Xeloda on 06/14/2023, completed radition on 07/27/2023.Started neoadjuvant FOLFOX on 08/24/23 and completed 6 full cycles. underwent an APR on 12/26/2022. #History of Stage III Bladder Cancer: Treated with neoadjucant MVAC, chemotherpy was followed by cystectomy according to prior oncology note from 08/21/24. #Urology note states that PET scan/CT scan performed on May 26, 2023 showed uptake in the rectum, uptake in the sigmoid colon near the rectosigmoid junction, and uptake in the 0.8 cm right perirectal node. #History of colo rectal cancer: Patient did undergo an APR which was performed by Dr. Morales in [place] at [facility], according to the urology note the pathology revealed a T2 grade 2 adenocarcinoma. At this time patient is trying to obtain a follow-up with the same provider, or obtain a follow-up with a different GI provider. #GI note from Edmar Najera: Patient was seen by [facility] gastroenterology on 06/26/2024. The note reports that they were trying to obtain the surgery report from [facility] as well as inquiring the colorectal surgeons opinion about timing for repeat colonoscopy. #Parkinsonian syndrome: Patient is on carbidopa-levodopa 10-500 mg tablet orally 3 times a day. Patient states that he was began on this medication by his previous neurologist due to a side effect from chemotherapy. Patient saw at [facility] [place], requesting notes. #Kidney stones: Patient had a nephrostomy placed in December 2023, he has had it replaced every 3 months. Patient states that he sees Dr. Angela Guevara for nephrology. Patient states that his last reported GFR was over 50%. Reports that his right kidney is completely atrophied and is no longer working. Patient states that he is unsure whether or not he is a candidate for kidney transplant. States his nephrostomy tube may be removed soon, has appointment September 25. #High cholesterol: Patient states that he is taking rosuvastatin 10 mg daily, states that this was previously monitored by his previous primary care provider. I will order labs to ensure he has a sufficient values. #Gout: Patient states that he is on Febuxostat for his gout. Patient has not admitted to any pain in her joints today, or inflammation. #Anemia: Patient is currently taking iron supplements once daily. I will order a CBC to ensure his hemoglobin and hematocrit are within normal limits. All questions have been answered to patient's satisfaction. Patient verbalized understanding of diagnosis and treatments explained. Advised to call sooner prior to next visit it any questions/concerns arise. Case discussed with collaborating physician Kelby Mendenhall who reviewed the assessment and plan. Chart, medications, labs, vital signs reviewed. Dictation was accomplished with the use of [employer] voice recognition software, which is prone to medical misidentifications and grammatical errors. This are unintentional and the practitioner does try to identify and correct these, but some could still be present. Please do not hesitate to contact practitioner for clarification. 11/21/2024 Hypercholesteremia (ICD-10 - E78.00) Nic is a 69-year-old male who presents to the office today for a MWV. Patient is medically complex, I do not have the specialist notes at this time, will request them. #Nephrolithotomy: patient underwent a left percutaneous nephrolithotomy: patient does follow regualry with . saw on Nov 20 and there are no reported changes, recommended potassium citrate. #Hyperlipidemia: Recent lab values demonstrated a cholesterol of 240, LDL of 153 and non-HDL of 182, continue taking rosuvastatin 10 mg once daily. Patient states that these labs were nonfasting as he did have creamer in his coffee this morning #CBC abnormality: MCHC 31.9, RDW 15.4 and lymphocytes of 0.51 Send #CMP: BUN 31, creatinine 1.65, EGFR 34. Patient does regularly follow with nephrology #Microalbumin creatinine ratio: Microalbumin 72.5, microalbumin creatinine ratio 129. Patient does follow regularly with urology and nephrology. #Hx Bladder cancer: Patient follows with urology, Dr. Godwin from [facility]. Patient had a urostomy placed in 2008. Admits that he is cancer free. Patient states that he follows with the specialist regularly, recently had surgery to remove his kidney stones, states the surgery went well. Appointment in March 2025. #[facility] Surgeon: They have not called him, was following with pt. # Hx Colorectal cancer: Patient had a colostomy bag placed in December. Patient states that the surgery was completed by Carter Morales MD at [facility]. Patient states that he is unsure of whether or not he will be obtaining future colonoscopies, has an appointment coming up is unsure of the date. Additionally patient states that he is following with OMNIQUE Rothman from [place], awaiting appointment with screening recommendation. will try and request [employer] records for the patient to bring to [facility]. 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 He started chemoradiation with Xeloda on 06/14/2023, completed radition on 07/27/2023.Started neoadjuvant FOLFOX on 08/24/23 and completed 6 full cycles. underwent an APR on 12/26/2022. Dr Conn Sister Ian next month. #History of Stage III Bladder Cancer: Treated with neoadjucant MVAC, chemotherpy was followed by cystectomy according to prior oncology note from 08/21/24. #Urology note states that PET scan/CT scan performed on May 26, 2023 showed uptake in the rectum, uptake in the sigmoid colon near the rectosigmoid junction, and uptake in the 0.8 cm right perirectal node. #History of colo rectal cancer: Patient did undergo an APR which was performed by Dr. Morales in [place] at [facility], according to the urology note the pathology revealed a T2 grade 2 adenocarcinoma. At this time patient is trying to obtain a follow-up with the same provider, or obtain a follow-up with a different GI provider. #GI note from Edmar Najera: Patient was seen by [facility] gastroenterology on 06/26/2024. The note reports that they were trying to obtain the surgery report from [facility] as well as inquiring the colorectal surgeons opinion about timing for repeat colonoscopy. Follows with as needed. #Parkinsonian syndrome: Patient is on carbidopa-levodopa 10-500 mg tablet orally 3 times a day. Patient states that he was began on this medication by his previous neurologist due to a side effect from chemotherapy. Patient saw [place]. Ibrahim [place] [facility] [place], requesting notes. Has a follow up scheduled for November 27 2024. #Kidney stones: Patient had a nephrostomy placed in December 2023, he has had it replaced every 3 months. Patient states that he sees Dr. Angela Guevara for nephrology. Patient states that his last reported GFR was over 50%. Reports that his right kidney is completely atrophied and is no longer working. Patient states that he is unsure whether or not he is a candidate for kidney transplant. States his nephrostomy tube was removed, September 25. #High cholesterol: Patient states that he is taking rosuvastatin 10 mg daily, states that this was previously monitored by his previous primary care provider. #Gout: Patient states that he is on Febuxostat for his gout. Patient has not admitted to any pain in her joints today, or inflammation. #Anemia: Patient is currently taking iron supplements once daily. I will order a CBC to ensure his hemoglobin and hematocrit are within normal limits. Medicare Wellness Patient is here for a Medicare wellness visit. Complete paperwork was reviewed and updated and has been filed and scan. Depression screen completed. Alcohol AUDIT SCREEN completed. Obesity screen completed. Cardiovascular risk stratification screen completed. Cognition assessed and within reasonable limits Fall risk assessed Discussed healthcare proxy. Discussed [place] order for life sustaining treatment, end-of-life issues, intubation and resuscitation dialysis artificial nutrition and hydration is appropriate. All questions have been answered to patient's satisfaction. Patient verbalized understanding of diagnosis and treatments explained. Advised to call sooner prior to next visit it any questions/concerns arise. Case discussed with Kelby MCKENZIE who reviewed the assessment and plan. Chart, medications, labs, vital signs reviewed. Dictation was accomplished with the use of [employer] voice recognition software, which is prone to medical misidentifications and grammatical errors. This are unintentional and the practitioner does try to identify and correct these, but some could still be present. Please do not hesitate to contact practitioner for clarification. 08/16/2024 History of anemia (ICD-10 - Z86.2) Nic is a 69-year-old male who presents to the office today for new patient evaluation. Patient is welcomed to the practice. They are coming from [facility]. Last complete physical exam with labs unknown.medications, medical history, allergies, surgeries, hospitalizations, family history, and social history were reviewed. Problem list updated. Cardiopulmonary and abdominal exam unremarkable. Patient will follow-up in office. All patient questions answered at this time. Patient is medically complex, I do not have the specialist notes at this time, will request them. #Hx Bladder cancer: Patient follows with urology, Dr. Jordan and Dr. [facility]wintena [facility]. Patient had a urostomy placed in 2008. Admits that he is cancer free. Patient states that he follows with the specialist regularly # Hx Colorectal cancer: Patient had a colostomy bag placed in December. Patient states that the surgery was completed by Carter Morales MD at [facility]. Patient states that he is unsure of whether or not he will be obtaining future colonoscopies, has an appointment coming up is unsure of the date. Additionally patient states that he is following with MONIQUE Rothman from [place]. #Parkinsonian syndrome: Patient is on carbidopa-levodopa 10-500 mg tablet orally 3 times a day. Patient states that he was began on this medication by his previous neurologist due to a side effect from chemotherapy. Patient has an appointment on August 28 at [facility] with Dr. Ibrahim. #Kidney stones: Patient had a nephrostomy placed in December 2023, he has had it replaced every 3 months. Patient states that he sees Dr. Angela Guevara for nephrology. Patient states that his last reported GFR was over 50%. Reports that his right kidney is completely atrophied and is no longer working. Patient states that he is unsure whether or not he is a candidate for kidney transplant. #High cholesterol: Patient states that he is taking rosuvastatin 10 mg daily, states that this was previously monitored by his previous primary care provider. I will order labs to ensure he has a sufficient values. #Gout: Patient states that he is on Febuxostat for his gout. Patient has not admitted to any pain in her joints today, or inflammation. #Anemia: Patient is currently taking iron supplements once daily. I will order a CBC to ensure his hemoglobin and hematocrit are within normal limits. All questions have been answered to patient's satisfaction. Patient verbalized understanding of diagnosis and treatments explained. Advised to call sooner prior to next visit it any questions/concerns arise. Case discussed with collaborating physician Lebron Mendenhall who reviewed the assessment and plan. Chart, medications, labs, vital signs reviewed. Dictation was accomplished with the use of [employer] voice recognition software, which is prone to medical misidentifications and grammatical errors. This are unintentional and the practitioner does try to identify and correct these, but some could still be present. Please do not hesitate to contact practitioner for clarification. 09/18/2024 History of anemia (ICD-10 - Z86.2) Nic is a 69-year-old male who presents to the office today for a follow-up. Patient is medically complex, I do not have the specialist notes at this time, will request them. #Nephrolithotomy: patient underwent a left percutaneous nephrolithotomy: patient does follow regualry with #Hx Bladder cancer: Patient follows with urology, Dr. Jordan and Dr. Benson [facility]. Patient had a urostomy placed in 2008. Admits that he is cancer free. Patient states that he follows with the specialist regularly, recently had surgery to remove his kidney stones, states the surgery went well. # Hx Colorectal cancer: Patient had a colostomy bag placed in December. Patient states that the surgery was completed by Carter Morales MD at [facility]. Patient states that he is unsure of whether or not he will be obtaining future colonoscopies, has an appointment coming up is unsure of the date. Additionally patient states that he is following with MONIQUE Rothman from [place], awaiting appointment. will try and request [employer] records for the patient to bring to [facility]. 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 He started chemoradiation with Xeloda on 06/14/2023, completed radition on 07/27/2023.Started neoadjuvant FOLFOX on 08/24/23 and completed 6 full cycles. underwent an APR on 12/26/2022. #History of Stage III Bladder Cancer: Treated with neoadjucant MVAC, chemotherpy was followed by cystectomy according to prior oncology note from 08/21/24. #Urology note states that PET scan/CT scan performed on May 26, 2023 showed uptake in the rectum, uptake in the sigmoid colon near the rectosigmoid junction, and uptake in the 0.8 cm right perirectal node. #History of colo rectal cancer: Patient did undergo an APR which was performed by Dr. Morales in [place] at [facility], according to the urology note the pathology revealed a T2 grade 2 adenocarcinoma. At this time patient is trying to obtain a follow-up with the same provider, or obtain a follow-up with a different GI provider. #GI note from Edmar Najera: Patient was seen by [facility] gastroenterology on 06/26/2024. The note reports that they were trying to obtain the surgery report from [facility] as well as inquiring the colorectal surgeons opinion about timing for repeat colonoscopy. #Parkinsonian syndrome: Patient is on carbidopa-levodopa 10-500 mg tablet orally 3 times a day. Patient states that he was began on this medication by his previous neurologist due to a side effect from chemotherapy. [place] [facility] [place] requesting notes. #Kidney stones: Patient had a nephrostomy placed in December 2023, he has had it replaced every 3 months. Patient states that he sees Dr. Angela Guevara for nephrology. Patient states that his last reported GFR was over 50%. Reports that his right kidney is completely atrophied and is no longer working. Patient states that he is unsure whether or not he is a candidate for kidney transplant. States his nephrostomy tube may be removed soon, has appointment September 25. #High cholesterol: Patient states that he is taking rosuvastatin 10 mg daily, states that this was previously monitored by his previous primary care provider. I will order labs to ensure he has a sufficient values. #Gout: Patient states that he is on Febuxostat for his gout. Patient has not admitted to any pain in her joints today, or inflammation. #Anemia: Patient is currently taking iron supplements once daily. I will order a CBC to ensure his hemoglobin and hematocrit are within normal limits. All questions have been answered to patient's satisfaction. Patient verbalized understanding of diagnosis and treatments explained. Advised to call sooner prior to next visit it any questions/concerns arise. Case discussed with collaborating physician Kelby Mendenhall who reviewed the assessment and plan. Chart, medications, labs, vital signs reviewed. Dictation was accomplished with the use of [employer] voice recognition software, which is prone to medical misidentifications and grammatical errors. This are unintentional and the practitioner does try to identify and correct these, but some could still be present. Please do not hesitate to contact practitioner for clarification. 11/21/2024 Bladder carcinoma (ICD-10 - C67.9) Nic is a 69-year-old male who presents to the office today for a MWV. Patient is medically complex, I do not have the specialist notes at this time, will request them. #Nephrolithotomy: patient underwent a left percutaneous nephrolithotomy: patient does follow regualry with . saw on Nov 20 and there are no reported changes, recommended potassium citrate. #Hyperlipidemia: Recent lab values demonstrated a cholesterol of 240, LDL of 153 and non-HDL of 182, continue taking rosuvastatin 10 mg once daily. Patient states that these labs were nonfasting as he did have creamer in his coffee this morning #CBC abnormality: MCHC 31.9, RDW 15.4 and lymphocytes of 0.51 Send #CMP: BUN 31, creatinine 1.65, EGFR 34. Patient does regularly follow with nephrology #Microalbumin creatinine ratio: Microalbumin 72.5, microalbumin creatinine ratio 129. Patient does follow regularly with urology and nephrology. #Hx Bladder cancer: Patient follows with urology, Dr. Godwin from [facility]. Patient had a urostomy placed in 2008. Admits that he is cancer free. Patient states that he follows with the specialist regularly, recently had surgery to remove his kidney stones, states the surgery went well. Appointment in March 2025. #[facility] Surgeon: They have not called him, was following with pt. # Hx Colorectal cancer: Patient had a colostomy bag placed in December. Patient states that the surgery was completed by Carter Morales MD at [facility]. Patient states that he is unsure of whether or not he will be obtaining future colonoscopies, has an appointment coming up is unsure of the date. Additionally patient states that he is following with MONIQUE Rothman from [place], awaiting appointment with screening recommendation. will try and request [employer] records for the patient to bring to [facility]. 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 He started chemoradiation with Xeloda on 06/14/2023, completed radition on 07/27/2023.Started neoadjuvant FOLFOX on 08/24/23 and completed 6 full cycles. underwent an APR on 12/26/2022. Dr Conn Sister Ian next month. #History of Stage III Bladder Cancer: Treated with neoadjucant MVAC, chemotherpy was followed by cystectomy according to prior oncology note from 08/21/24. #Urology note states that PET scan/CT scan performed on May 26, 2023 showed uptake in the rectum, uptake in the sigmoid colon near the rectosigmoid junction, and uptake in the 0.8 cm right perirectal node. #History of colo rectal cancer: Patient did undergo an APR which was performed by Dr. Morales in [place] at [facility], according to the urology note the pathology revealed a T2 grade 2 adenocarcinoma. At this time patient is trying to obtain a follow-up with the same provider, or obtain a follow-up with a different GI provider. #GI note from Edmar Najera: Patient was seen by [facility] gastroenterology on 06/26/2024. The note reports that they were trying to obtain the surgery report from [facility] as well as inquiring the colorectal surgeons opinion about timing for repeat colonoscopy. Follows with as needed. #Parkinsonian syndrome: Patient is on carbidopa-levodopa 10-500 mg tablet orally 3 times a day. Patient states that he was began on this medication by his previous neurologist due to a side effect from chemotherapy. Patient saw Dr. Ibrahim at [facility] [place], requesting notes. Has a follow up scheduled for November 27 2024. #Kidney stones: Patient had a nephrostomy placed in December 2023, he has had it replaced every 3 months. Patient states that he sees Dr. Angela Guevara for nephrology. Patient states that his last reported GFR was over 50%. Reports that his right kidney is completely atrophied and is no longer working. Patient states that he is unsure whether or not he is a candidate for kidney transplant. States his nephrostomy tube was removed, September 25. #High cholesterol: Patient states that he is taking rosuvastatin 10 mg daily, states that this was previously monitored by his previous primary care provider. #Gout: Patient states that he is on Febuxostat for his gout. Patient has not admitted to any pain in her joints today, or inflammation. #Anemia: Patient is currently taking iron supplements once daily. I will order a CBC to ensure his hemoglobin and hematocrit are within normal limits. Medicare Wellness Patient is here for a Medicare wellness visit. Complete paperwork was reviewed and updated and has been filed and scan. Depression screen completed. Alcohol AUDIT SCREEN completed. Obesity screen completed. Cardiovascular risk stratification screen completed. Cognition assessed and within reasonable limits Fall risk assessed Discussed healthcare proxy. Discussed [place] order for life sustaining treatment, end-of-life issues, intubation and resuscitation dialysis artificial nutrition and hydration is appropriate. All questions have been answered to patient's satisfaction. Patient verbalized understanding of diagnosis and treatments explained. Advised to call sooner prior to next visit it any questions/concerns arise. Case discussed with Kelby MCKENZIE who reviewed the assessment and plan. Chart, medications, labs, vital signs reviewed. Dictation was accomplished with the use of [employer] voice recognition software, which is prone to medical misidentifications and grammatical errors. This are unintentional and the practitioner does try to identify and correct these, but some could still be present. Please do not hesitate to contact practitioner for clarification. 02/20/2025 Colorectal cancer (ICD-10 - C19) Nic is a 69-year-old male who presents to the office today for a f/u.. Patient is medically complex, I do not have the specialist notes at this time, will request them. #Phalanges: Bilateral hand x-ray ordered today as patient does have tenderness upon palpation of the trapezius bones bilaterally, he is to call arthritis tx center #Oncology appointment: Scheduled for May, patient does have a CT scan scheduled for June 11 and at oncology appoint with Dr. Conn on June 21.States that he always obtains blood work before these appointments. #Nephrolithotomy: patient underwent a left percutaneous nephrolithotomy: patient does follow regualry with . saw on Nov 20 and there are no reported changes, recommended potassium citrate. #Hyperlipidemia: Recent lab values demonstrated a cholesterol of 240, LDL of 153 and non-HDL of 182, continue taking rosuvastatin 10 mg once daily. #CBC abnormality: Recent CBC, MCHC 31.9, RDW 15.4 and lymphocytes of 0.51.. #CMP: Recent...BUN 31, creatinine 1.65, EGFR 34. Patient does regularly follow with nephrology #Microalbumin creatinine ratio: Microalbumin 72.5, microalbumin creatinine ratio 129. Patient does follow regularly with urology and nephrology. #Hx Bladder cancer: Patient follows with urology, Dr. Godwin from [facility]. Patient had a urostomy placed in 2008. Admits that he is cancer free. Patient states that he follows with the specialist regularly, recently had surgery to remove his kidney stones, states the surgery went well. Appointmentand US in March 2025. #[facility] Surgeon: They have not called him, was following with pt. # Hx Colorectal cancer: Patient had a colostomy bag placed in December. Patient states that the surgery was completed by Carter Morales MD at [facility]. Patient states that he is unsure of whether or not he will be obtaining future colonoscopies, has an appointment coming up is unsure of the date. Additionally patient states that he is following with MONIQUE Rothman from [place], awaiting appointment with screening recommendation. will try and request [employer] records for the patient to bring to [facility]. 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 He started chemoradiation with Xeloda on 06/14/2023, completed radition on 07/27/2023.Started neoadjuvant FOLFOX on 08/24/23 and completed 6 full cycles. underwent an APR on 12/26/2022. Dr Conn Sister Ian next month. #History of Stage III Bladder Cancer: Treated with neoadjucant MVAC, chemotherpy was followed by cystectomy according to prior oncology note from 08/21/24. #Urology note states that PET scan/CT scan performed on May 26, 2023 showed uptake in the rectum, uptake in the sigmoid colon near the rectosigmoid junction, and uptake in the 0.8 cm right perirectal node. #History of colo rectal cancer: Patient did undergo an APR which was performed by Dr. Morales in [place] at [facility], according to the urology note the pathology revealed a T2 grade 2 adenocarcinoma. At this time patient is trying to obtain a follow-up with the same provider, or obtain a follow-up with a different GI provider. #GI note from Edmar Najera: Patient was seen by [facility] gastroenterology on 06/26/2024. The note reports that they were trying to obtain the [facility] report from [facility] as well as inquiring the colorectal surgeons opinion about timing for repeat colonoscopy. Follows with as needed. #Parkinsonian syndrome: Patient is on carbidopa-levodopa 10-500 mg tablet orally 3 times a day. Patient states that he was began on this medication by his previous neurologist due to a side effect from chemotherapy. Patient saw Dr. Ibrahim [place] [facility] [place], requesting notes. Saw last in Nov 2024, was started on Lyrice 150mg QD... would benefit from BID.. he will call #Kidney stones: Patient had a nephrostomy placed in December 2023, he has had it replaced every 3 months. Patient states that he sees Dr. Angela Guevara for nephrology. Patient states that his last reported GFR was over 50%. Reports that his right kidney is completely atrophied and is no longer working. Patient states that he is unsure whether or not he is a candidate for kidney transplant. States his nephrostomy tube was removed, September 25. #Gout: Patient states that he is on Febuxostat for his gout. All questions have been answered to patient's satisfaction. Patient verbalized understanding of diagnosis and treatments explained. Advised to call sooner prior to next visit it any questions/concerns arise. Case discussed with Kelby MCKENZIE who reviewed the assessment and plan. Chart, medications, labs, vital signs reviewed. Dictation was accomplished with the use of [employer] voice recognition software, which is prone to medical misidentifications and grammatical errors. This are unintentional and the practitioner does try to identify and correct these, but some could still be present. Please do not hesitate to contact practitioner for clarification. 03/06/2025 Bladder carcinoma (ICD-10 - C67.9) Nic is a 69-year-old male who presents to the office today for a f/u.. #Hip lump: At this time due to patient's extensive history of cancer I feel as though obtaining a CAT scan with contrast would be most appropriate for further evaluation of this rather large mass on patient's left trochanter of femur. I called Dr. Angela Guevara's office and left a voicemail in regards to his thoughts on having the patient undergo the CT scan with or without contrast. Will hold off on placing order until we hear back from the percussion tuner. He is to call our office tomorrow morning with an update. 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 #Oncology appointment: Scheduled for May, patient does have a CT scan scheduled for June 11 and at oncology appoint with Dr. Conn on June 21.States that he always obtains blood work before these appointments. #Nephrolithotomy: patient underwent a left percutaneous nephrolithotomy: patient does follow regualry with . saw on Nov 20 and there are no reported changes, recommended potassium citrate. #Hyperlipidemia: Recent lab values demonstrated a cholesterol of 240, LDL of 153 and non-HDL of 182, continue taking rosuvastatin 10 mg once daily. #CBC abnormality: Recent CBC, MCHC 31.9, RDW 15.4 and lymphocytes of 0.51.. #CMP: Recent...BUN 31, creatinine 1.65, EGFR 34. Patient does regularly follow with nephrology #Microalbumin creatinine ratio: Microalbumin 72.5, microalbumin creatinine ratio 129. Patient does follow regularly with urology and nephrology. #Hx Bladder cancer: Patient follows with urology, Dr. Godwin from [facility]. Patient had a urostomy placed in 2008. Admits that he is cancer free. Patient states that he follows with the specialist regularly, recently had surgery to remove his kidney stones, states the surgery went well. Appointmentand US in March 2025. #[facility] Surgeon: They have not called him, was following with pt. # Hx Colorectal cancer: Patient had a colostomy bag placed in December. Patient states that the surgery was completed by Carter Morales MD at [facility]. Patient states that he is unsure of whether or not he will be obtaining future colonoscopies, has an appointment coming up is unsure of the date. Additionally patient states that he is following with MONIQEU Rothman from [place], awaiting appointment with screening recommendation. will try and request [facility] records for the patient to bring to [facility]. 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 He started chemoradiation with Xeloda on 06/14/2023, completed radition on 07/27/2023.Started neoadjuvant FOLFOX on 08/24/23 and completed 6 full cycles. underwent an APR on 12/26/2022. Dr Conn Sister Ian next month. #History of Stage III Bladder Cancer: Treated with neoadjucant MVAC, chemotherpy was followed by cystectomy according to prior oncology note from 08/21/24. #Urology note states that PET scan/CT scan performed on May 26, 2023 showed uptake in the rectum, uptake in the sigmoid colon near the rectosigmoid junction, and uptake in the 0.8 cm right perirectal node. #History of colo rectal cancer: Patient did undergo an APR which was performed by Dr. Morales in [place] at [facility], according to the urology note the pathology revealed a T2 grade 2 adenocarcinoma. At this time patient is trying to obtain a follow-up with the same provider, or obtain a follow-up with a different GI provider. #GI note from Edmar Najera: Patient was seen by [facility] gastroenterology on 06/26/2024. The note reports that they were trying to obtain the surgery report from [facility] as well as inquiring the colorectal surgeons opinion about timing for repeat colonoscopy. Follows with as needed. #Parkinsonian syndrome: Patient is on carbidopa-levodopa 10-500 mg tablet orally 3 times a day. Patient states that he was began on this medication by his previous neurologist due to a side effect from chemotherapy. Patient [place]. Ibrahim [place] [facility] [place], requesting notes. Saw last in Nov 2024, was started on Lyrice 150mg QD... would benefit from BID.. he will call #Kidney stones: Patient had a nephrostomy placed in December 2023, he has had it replaced every 3 months. Patient states that he sees Dr. Angela Guevara for nephrology. Patient states that his last reported GFR was over 50%. Reports that his right kidney is completely atrophied and is no longer working. Patient states that he is unsure whether or not he is a candidate for kidney transplant. States his nephrostomy tube was removed, September 25. #Gout: Patient states that he is on Febuxostat for his gout. All questions have been answered to patient's satisfaction. Patient verbalized understanding of diagnosis and treatments explained. Advised to call sooner prior to next visit it any questions/concerns arise. Case discussed with Kelby MCKENZIE who reviewed the assessment and plan. Chart, medications, labs, vital signs reviewed. Dictation was accomplished with the use of [employer] voice recognition software, which is prone to medical misidentifications and grammatical errors. This are unintentional and the practitioner does try to identify and correct these, but some could still be present. Please do not hesitate to contact practitioner for clarification. 04/17/2025 Bladder carcinoma (ICD-10 - C67.9) Nic is a 69-year-old male who presents to the office today for a f/u.. #Tension Headaches: Per research on [employer], medication such as sumatriptan, amitriptyline have multiple interactions with medications that the patient is on, he is encouraged to discuss tension headache protocol with Dr. Ibrahim at his follow-up. #purpura: Obtaining CBC, iron studies, however patient advised that these are more than likely benign findings #NEOS: Has an appointment on June 19 2025 for hip femoral fluid collection, will try to expidite this process... #Hip lump: 03/15/2025, patient was given IV hydration protocol before and after imaging. Findings included Moderate osteoarthritis of the left hip,No evidence of metastatic disease in the visualized left pelvis or femur, The observation of a circumscribed fluid collection along the surface of the iliotibial band requires clinical correlation. This could represent a relatively subacute or old liquefied hematoma (if there was fall/trauma to the lateral hip). The edema of the overlying subcutaneous tissues could be from trauma or inflammation. No soft tissue gas in this area. The collection could be aspirated if there is clinical suspicion of an infected collection NEOS referral was placed, stsates he has an apt June 19 2025.. 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 #Oncology appointment: Scheduled for May, patient does have a CT scan scheduled for June 11 and at oncology appoint with Dr. Conn on June 21.States that he always obtains blood work before these appointments. #Nephrolithotomy: patient underwent a left percutaneous nephrolithotomy: patient does follow regualry with . saw on Nov 20 and there are no reported changes, recommended potassium citrate. #Hyperlipidemia: Recent lab values demonstrated a cholesterol of 240, LDL of 153 and non-HDL of 182, continue taking rosuvastatin 10 mg once daily. #CBC abnormality: Recent CBC, MCHC 31.9, RDW 15.4 and lymphocytes of 0.51.. Obtaining repeat #CMP: Recent...BUN 31, creatinine 1.65, EGFR 34. Patient does regularly follow with nephrology... #Microalbumin creatinine ratio: Last Microalbumin 72.5, microalbumin creatinine ratio 129. Patient does follow regularly with urology and nephrology. #Hx Bladder cancer: Patient follows with urology, Dr. Santana from [facility]. Patient had a urostomy placed in 2008. Admits that he is cancer free. Patient states that he follows with the specialist regularly, recently had surgery to remove his kidney stones, states the surgery went well. Appointmentand US in March 2025. #[facility] Surgeon: They have not called him, was following with pt. # Hx Colorectal cancer: Patient had a colostomy bag placed in December. Patient states that the surgery was completed by Carter Morales MD at [facility]. Patient states that he is unsure of whether or not he will be obtaining future colonoscopies, has an appointment coming up is unsure of the date. Additionally patient states that he is following with MONIQUE Rothman from [place], awaiting appointment with screening recommendation. will try and request [employer] records for the patient to bring to [facility]. 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 He started chemoradiation with Xeloda on 06/14/2023, completed radition on 07/27/2023.Started neoadjuvant FOLFOX on 08/24/23 and completed 6 full cycles. underwent an APR on 12/26/2022. Dr Conn Sister Ian next month. #History of Stage III Bladder Cancer: Treated with neoadjucant MVAC, chemotherpy was followed by cystectomy according to prior oncology note from 08/21/24. #Urology note states that PET scan/CT scan performed on May 26, 2023 showed uptake in the rectum, uptake in the sigmoid colon near the rectosigmoid junction, and uptake in the 0.8 cm right perirectal node. #History of colo rectal cancer: Patient did undergo an APR which was performed by Dr. Morales in [place] at [facility], according to the urology note the pathology revealed a T2 grade 2 adenocarcinoma. At this time patient is trying to obtain a follow-up with the same provider, or obtain a follow-up with a different GI provider. #GI note from Edmar Najera: Patient was seen by [facility] gastroenterology on 06/26/2024. The note reports that they were trying to obtain the surgery report from [facility] as well as inquiring the colorectal surgeons opinion about timing for repeat colonoscopy. Follows with as needed. #Parkinsonian syndrome: Patient is on carbidopa-levodopa 10-500 mg tablet orally 3 times a day. Patient states that he was began on this medication by his previous neurologist due to a side effect from chemotherapy. Patient [place] [facility] [place] requesting notes. Saw last in Nov 2024..Continue Lyrice 150mg BID.. F/u May 28 #Kidney stones: Patient had a nephrostomy placed in December 2023, he has had it replaced every 3 months. Patient states that he sees Dr. Angela Guevara for nephrology. Patient states that his last reported GFR was over 50%. Reports that his right kidney is completely atrophied and is no longer working. Patient states that he is unsure whether or not he is a candidate for kidney transplant. States his nephrostomy tube was removed, September 25... F/u is on May 21 2025 #Gout: Patient states that he is on Febuxostat for his gout. All questions have been answered to patient's satisfaction. Patient verbalized understanding of diagnosis and treatments explained. Advised to call sooner prior to next visit it any questions/concerns arise. Dictation was accomplished with the use of [employer] voice recognition software, which is prone to medical misidentifications and grammatical errors. This are unintentional and the practitioner does try to identify and correct these, but some could still be present. Please do not hesitate to contact practitioner for clarification. 08/16/2024 Kidney stone (ICD-10 - N20.0) Nic is a 69-year-old male who presents to the office today for new patient evaluation. Patient is welcomed to the practice. They are coming from [facility]. Last complete physical exam with labs unknown.medications, medical history, allergies, surgeries, hospitalizations, family history, and social history were reviewed. Problem list updated. Cardiopulmonary and abdominal exam unremarkable. Patient will follow-up in office. All patient questions answered at this time. Patient is medically complex, I do not have the specialist notes at this time, will request them. #Hx Bladder cancer: Patient follows with urology, Dr. Jordan and Dr. Godwintena [facility]. Patient had a urostomy placed in 2008. Admits that he is cancer free. Patient states that he follows with the specialist regularly # Hx Colorectal cancer: Patient had a colostomy bag placed in December. Patient states that the surgery was completed by Carter Morales MD at [facility]. Patient states that he is unsure of whether or not he will be obtaining future colonoscopies, has an appointment coming up is unsure of the date. Additionally patient states that he is following with MONIQUE Rothman from [place]. #Parkinsonian syndrome: Patient is on carbidopa-levodopa 10-500 mg tablet orally 3 times a day. Patient states that he was began on this medication by his previous neurologist due to a side effect from chemotherapy. Patient has an appointment on August 28 at [facility] with Dr. Ibrahim. #Kidney stones: Patient had a nephrostomy placed in December 2023, he has had it replaced every 3 months. Patient states that he sees Dr. Angela Guevara for nephrology. Patient states that his last reported GFR was over 50%. Reports that his right kidney is completely atrophied and is no longer working. Patient states that he is unsure whether or not he is a candidate for kidney transplant. #High cholesterol: Patient states that he is taking rosuvastatin 10 mg daily, states that this was previously monitored by his previous primary care provider. I will order labs to ensure he has a sufficient values. #Gout: Patient states that he is on Febuxostat for his gout. Patient has not admitted to any pain in her joints today, or inflammation. #Anemia: Patient is currently taking iron supplements once daily. I will order a CBC to ensure his hemoglobin and hematocrit are within normal limits. All questions have been answered to patient's satisfaction. Patient verbalized understanding of diagnosis and treatments explained. Advised to call sooner prior to next visit it any questions/concerns arise. Case discussed with collaborating physician Lebron Mendenhall who reviewed the assessment and plan. Chart, medications, labs, vital signs reviewed. Dictation was accomplished with the use of [employer] voice recognition software, which is prone to medical misidentifications and grammatical errors. This are unintentional and the practitioner does try to identify and correct these, but some could still be present. Please do not hesitate to contact practitioner for clarification. 04/17/2025 Colorectal cancer (ICD-10 - C19) Nic is a 69-year-old male who presents to the office today for a f/u.. #Tension Headaches: Per research on [employer], medication such as sumatriptan, amitriptyline have multiple interactions with medications that the patient is on, he is encouraged to discuss tension headache protocol with Dr. Ibrahim at his follow-up. #purpura: Obtaining CBC, iron studies, however patient advised that these are more than likely benign findings #NEOS: Has an appointment on June 19 2025 for hip femoral fluid collection, will try to expidite this process... #Hip lump: 03/15/2025, patient was given IV hydration protocol before and after imaging. Findings included Moderate osteoarthritis of the left hip,No evidence of metastatic disease in the visualized left pelvis or femur, The observation of a circumscribed fluid collection along the surface of the iliotibial band requires clinical correlation. This could represent a relatively subacute or old liquefied hematoma (if there was fall/trauma to the lateral hip). The edema of the overlying subcutaneous tissues could be from trauma or inflammation. No soft tissue gas in this area. The collection could be aspirated if there is clinical suspicion of an infected collection NEOS referral was placed, stsates he has an apt June 19 2025.. 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 #Oncology appointment: Scheduled for May, patient does have a CT scan scheduled for June 11 and at oncology appoint with Dr. Conn on June 21.States that he always obtains blood work before these appointments. #Nephrolithotomy: patient underwent a left percutaneous nephrolithotomy: patient does follow regualry with . saw on Nov 20 and there are no reported changes, recommended potassium citrate. #Hyperlipidemia: Recent lab values demonstrated a cholesterol of 240, LDL of 153 and non-HDL of 182, continue taking rosuvastatin 10 mg once daily. #CBC abnormality: Recent CBC, MCHC 31.9, RDW 15.4 and lymphocytes of 0.51.. Obtaining repeat #CMP: Recent...BUN 31, creatinine 1.65, EGFR 34. Patient does regularly follow with nephrology... #Microalbumin creatinine ratio: Last Microalbumin 72.5, microalbumin creatinine ratio 129. Patient does follow regularly with urology and nephrology. #Hx Bladder cancer: Patient follows with urology, Dr. Santana from [facility]. Patient had a urostomy placed in 2008. Admits that he is cancer free. Patient states that he follows with the specialist regularly, recently had surgery to remove his kidney stones, states the surgery went well. Appointmentand US in March 2025. #[facility] Surgeon: They have not called him, was following with pt. # Hx Colorectal cancer: Patient had a colostomy bag placed in December. Patient states that the surgery was completed by Carter Morales MD at [facility]. Patient states that he is unsure of whether or not he will be obtaining future colonoscopies, has an appointment coming up is unsure of the date. Additionally patient states that he is following with MONIQUE Rothman from [place], awaiting appointment with screening recommendation. will try and request [employer] records for the patient to bring to [facility]. 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 He started chemoradiation with Xeloda on 06/14/2023, completed radition on 07/27/2023.Started neoadjuvant FOLFOX on 08/24/23 and completed 6 full cycles. underwent an APR on 12/26/2022. Dr Conn Sister Bertrandrome next month. #History of Stage III Bladder Cancer: Treated with neoadjucant MVAC, chemotherpy was followed by cystectomy according to prior oncology note from 08/21/24. #Urology note states that PET scan/CT scan performed on May 26, 2023 showed uptake in the rectum, uptake in the sigmoid colon near the rectosigmoid junction, and uptake in the 0.8 cm right perirectal node. #History of colo rectal cancer: Patient did undergo an APR which was performed by Dr. Morales in [place] at [facility], according to the urology note the pathology revealed a T2 grade 2 adenocarcinoma. At this time patient is trying to obtain a follow-up with the same provider, or obtain a follow-up with a different GI provider. #GI note from Edmar Najera: Patient was seen by [facility] gastroenterology on 06/26/2024. The note reports that they were trying to obtain the surgery report from [facility] as well as inquiring the colorectal surgeons opinion about timing for repeat colonoscopy. Follows with as needed. #Parkinsonian syndrome: Patient is on carbidopa-levodopa 10-500 mg tablet orally 3 times a day. Patient states that he was began on this medication by his previous neurologist due to a side effect from chemotherapy. Patient [place]. Ibrahim [place] [facility] [place], requesting notes. Saw last in Nov 2024..Continue Lyrice 150mg BID.. F/u May 28 #Kidney stones: Patient had a nephrostomy placed in December 2023, he has had it replaced every 3 months. Patient states that he sees Dr. Angela Guevara for nephrology. Patient states that his last reported GFR was over 50%. Reports that his right kidney is completely atrophied and is no longer working. Patient states that he is unsure whether or not he is a candidate for kidney transplant. States his nephrostomy tube was removed, September 25... F/u is on May 21 2025 #Gout: Patient states that he is on Febuxostat for his gout. All questions have been answered to patient's satisfaction. Patient verbalized understanding of diagnosis and treatments explained. Advised to call sooner prior to next visit it any questions/concerns arise. Dictation was accomplished with the use of [employer] voice recognition software, which is prone to medical misidentifications and grammatical errors. This are unintentional and the practitioner does try to identify and correct these, but some could still be present. Please do not hesitate to contact practitioner for clarification. 03/06/2025 Colorectal cancer (ICD-10 - C19) Nic is a 69-year-old male who presents to the office today for a f/u.. #Hip lump: At this time due to patient's extensive history of cancer I feel as though obtaining a CAT scan with contrast would be most appropriate for further evaluation of this rather large mass on patient's left trochanter of femur. I called Dr. Angela Guevara's office and left a voicemail in regards to his thoughts on having the patient undergo the CT scan with or without contrast. Will hold off on placing order until we hear back from the percussion tuner. He is to call our office tomorrow morning with an update. 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 #Oncology appointment: Scheduled for May, patient does have a CT scan scheduled for June 11 and at oncology appoint with Dr. Conn on June 21.States that he always obtains blood work before these appointments. #Nephrolithotomy: patient underwent a left percutaneous nephrolithotomy: patient does follow regualry with . saw on Nov 20 and there are no reported changes, recommended potassium citrate. #Hyperlipidemia: Recent lab values demonstrated a cholesterol of 240, LDL of 153 and non-HDL of 182, continue taking rosuvastatin 10 mg once daily. #CBC abnormality: Recent CBC, MCHC 31.9, RDW 15.4 and lymphocytes of 0.51.. #CMP: Recent...BUN 31, creatinine 1.65, EGFR 34. Patient does regularly follow with nephrology #Microalbumin creatinine ratio: Microalbumin 72.5, microalbumin creatinine ratio 129. Patient does follow regularly with urology and nephrology. #Hx Bladder cancer: Patient follows with urology, Dr. Godwin from [facility]. Patient had a urostomy placed in 2008. Admits that he is cancer free. Patient states that he follows with the specialist regularly, recently had surgery to remove his kidney stones, states the surgery went well. Appointmentand US in March 2025. #[facility] Surgeon: They have not called him, was following with pt. # Hx Colorectal cancer: Patient had a colostomy bag placed in December. Patient states that the surgery was completed by Carter Morales MD at [facility]. Patient states that he is unsure of whether or not he will be obtaining future colonoscopies, has an appointment coming up is unsure of the date. Additionally patient states that he is following with MONIQUE Rothman from [place], awaiting appointment with screening recommendation. will try and request [employer] records for the patient to bring to [facility]. 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 He started chemoradiation with Xeloda on 06/14/2023, completed radition on 07/27/2023.Started neoadjuvant FOLFOX on 08/24/23 and completed 6 full cycles. underwent an APR on 12/26[facility]2022[facility] #History of Stage III Bladder Cancer: Treated with neoadjucant MVAC, chemotherpy was followed by cystectomy according to prior oncology note from 08/21/24. #Urology note states that PET scan/CT scan performed on May 26, 2023 showed uptake in the rectum, uptake in the sigmoid colon near the rectosigmoid junction, and uptake in the 0.8 cm right perirectal node. #History of colo rectal cancer: Patient did undergo an APR which was performed by Dr. Morales in [place] at [facility], according to the urology note the pathology revealed a T2 grade 2 adenocarcinoma. At this time patient is trying to obtain a follow-up with the same provider, or obtain a follow-up with a different GI provider. #GI note from Edmar Najera: Patient was seen by [facility] gastroenterology on 06/26/2024. The note reports that they were trying to obtain the surgery report from [facility] as well as inquiring the colorectal surgeons opinion about timing for repeat colonoscopy. Follows with as needed. #Parkinsonian syndrome: Patient is on carbidopa-levodopa 10-500 mg tablet orally 3 times a day. Patient states that he was began on this medication by his previous neurologist due to a side effect from chemotherapy. Patient [place]. Ibrahim [place] [facility] [place], requesting notes. Saw last in Nov 2024, was started on Lyrice 150mg QD... would benefit from BID.. he will call #Kidney stones: Patient had a nephrostomy placed in December 2023, he has had it replaced every 3 months. Patient states that he sees Dr. Angela Guevara for nephrology. Patient states that his last reported GFR was over 50%. Reports that his right kidney is completely atrophied and is no longer working. Patient states that he is unsure whether or not he is a candidate for kidney transplant. States his nephrostomy tube was removed, September 25. #Gout: Patient states that he is on Febuxostat for his gout. All questions have been answered to patient's satisfaction. Patient verbalized understanding of diagnosis and treatments explained. Advised to call sooner prior to next visit it any questions/concerns arise. Case discussed with Kelby MCKENZIE who reviewed the assessment and plan. Chart, medications, labs, vital signs reviewed. Dictation was accomplished with the use of [employer] voice recognition software, which is prone to medical misidentifications and grammatical errors. This are unintentional and the practitioner does try to identify and correct these, but some could still be present. Please do not hesitate to contact practitioner for clarification. 02/20/2025 Anemia (ICD-10 - D64.9) Nic is a 69-year-old male who presents to the office today for a f/u.. Patient is medically complex, I do not have the specialist notes at this time, will request them. #Phalanges: Bilateral hand x-ray ordered today as patient does have tenderness upon palpation of the trapezius bones bilaterally, he is to call arthritis tx center #Oncology appointment: Scheduled for May, patient does have a CT scan scheduled for June 11 and at oncology appoint with Dr. Conn on June 21.States that he always obtains blood work before these appointments. #Nephrolithotomy: patient underwent a left percutaneous nephrolithotomy: patient does follow regualry with . saw on Nov 20 and there are no reported changes, recommended potassium citrate. #Hyperlipidemia: Recent lab values demonstrated a cholesterol of 240, LDL of 153 and non-HDL of 182, continue taking rosuvastatin 10 mg once daily. #CBC abnormality: Recent CBC, MCHC 31.9, RDW 15.4 and lymphocytes of 0.51.. #CMP: Recent...BUN 31, creatinine 1.65, EGFR 34. Patient does regularly follow with nephrology #Microalbumin creatinine ratio: Microalbumin 72.5, microalbumin creatinine ratio 129. Patient does follow regularly with urology and nephrology. #Hx Bladder cancer: Patient follows with urology, Dr. Godwin from [facility]. Patient had a urostomy placed in 2008. Admits that he is cancer free. Patient states that he follows with the specialist regularly, recently had surgery to remove his kidney stones, states the surgery went well. Appointmentand US in March 2025. #[facility] Surgeon: They have not called him, was following with pt. # Hx Colorectal cancer: Patient had a colostomy bag placed in December. Patient states that the surgery was completed by Carter Morales MD at [facility]. Patient states that he is unsure of whether or not he will be obtaining future colonoscopies, has an appointment coming up is unsure of the date. Additionally patient states that he is following with MONIQUE Rothman from [place], awaiting appointment with screening recommendation. will try and request [employer] records for the patient to bring to [facility]. 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 He started chemoradiation with Xeloda on 06/14/2023, completed radition on 07/27/2023.Started neoadjuvant FOLFOX on 08/24/23 and completed 6 full cycles. underwent an APR on 12/26/2022. Dr Conn Sister Ian next month. #History of Stage III Bladder Cancer: Treated with neoadjucant MVAC, chemotherpy was followed by cystectomy according to prior oncology note from 08/21/24. #Urology note states that PET scan/CT scan performed on May 26, 2023 showed uptake in the rectum, uptake in the sigmoid colon near the rectosigmoid junction, and uptake in the 0.8 cm right perirectal node. #History of colo rectal cancer: Patient did undergo an APR which was performed by Dr. Morales in [place] at [facility], according to the urology note the pathology revealed a T2 grade 2 adenocarcinoma. At this time patient is trying to obtain a follow-up with the same provider, or obtain a follow-up with a different GI provider. #GI note from Edmar Najera: Patient was seen by [facility] gastroenterology on 06/26/2024. The note reports that they were trying to obtain the surgery report from [facility] as well as inquiring the colorectal surgeons opinion about timing for repeat colonoscopy. Follows with as needed. #Parkinsonian syndrome: Patient is on carbidopa-levodopa 10-500 mg tablet orally 3 times a day. Patient states that he was began on this medication by his previous neurologist due to a side effect from chemotherapy. Patient [place] [facility]. Saw last in Nov 2024, was started on Lyrice 150mg QD... would benefit from BID.. he will call #Kidney stones: Patient had a nephrostomy placed in December 2023, he has had it replaced every 3 months. Patient states that he sees Dr. Angela Guevara for nephrology. Patient states that his last reported GFR was over 50%. Reports that his right kidney is completely atrophied and is no longer working. Patient states that he is unsure whether or not he is a candidate for kidney transplant. States his nephrostomy tube was removed, September 25. #Gout: Patient states that he is on Febuxostat for his gout. All questions have been answered to patient's satisfaction. Patient verbalized understanding of diagnosis and treatments explained. Advised to call sooner prior to next visit it any questions/concerns arise. Case discussed with Kelby MCKENZIE who reviewed the assessment and plan. Chart, medications, labs, vital signs reviewed. Dictation was accomplished with the use of [employer] voice recognition software, which is prone to medical misidentifications and grammatical errors. This are unintentional and the practitioner does try to identify and correct these, but some could still be present. Please do not hesitate to contact practitioner for clarification. 11/21/2024 Colorectal cancer (ICD-10 - C19) Nic is a 69-year-old male who presents to the office today for a MWV. Patient is medically complex, I do not have the specialist notes at this time, will request them. #Nephrolithotomy: patient underwent a left percutaneous nephrolithotomy: patient does follow regualry with . saw on Nov 20 and there are no reported changes, recommended potassium citrate. #Hyperlipidemia: Recent lab values demonstrated a cholesterol of 240, LDL of 153 and non-HDL of 182, continue taking rosuvastatin 10 mg once daily. Patient states that these labs were nonfasting as he did have creamer in his coffee this morning #CBC abnormality: MCHC 31.9, RDW 15.4 and lymphocytes of 0.51 Send #CMP: BUN 31, creatinine 1.65, EGFR 34. Patient does regularly follow with nephrology #Microalbumin creatinine ratio: Microalbumin 72.5, microalbumin creatinine ratio 129. Patient does follow regularly with urology and nephrology. #Hx Bladder cancer: Patient follows with urology, Dr. Godwin from [facility]. Patient had a urostomy placed in 2008. Admits that he is cancer free. Patient states that he follows with the specialist regularly, recently had surgery to remove his kidney stones, states the surgery went well. Appointment in March 2025. #[facility] Surgeon: They have not called him, was following with pt. # Hx Colorectal cancer: Patient had a colostomy bag placed in December. Patient states that the surgery was completed by Carter Morales MD at [facility]. Patient states that he is unsure of whether or not he will be obtaining future colonoscopies, has an appointment coming up is unsure of the date. Additionally patient states that he is following with MONIQUE Rothman from [place], awaiting appointment with screening recommendation. will try and request [employer] records for the patient to bring to [facility]. 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 He started chemoradiation with Xeloda on 06/14/2023, completed radition on 07/27/2023.Started neoadjuvant FOLFOX on 08/24/23 and completed 6 full cycles. underwent an APR on 12/26/2022. Dr Fabien Sister Bertrandarmenboris next month. #History of Stage III Bladder Cancer: Treated with neoadjucant MVAC, chemotherpy was followed by cystectomy according to prior oncology note from 08/21/24. #Urology note states that PET scan/CT scan performed on May 26, 2023 showed uptake in the rectum, uptake in the sigmoid colon near the rectosigmoid junction, and uptake in the 0.8 cm right perirectal node. #History of colo rectal cancer: Patient did undergo an APR which was performed by Dr. Morales in [place] at [facility], according to the urology note the pathology revealed a T2 grade 2 adenocarcinoma. At this time patient is trying to obtain a follow-up with the same provider, or obtain a follow-up with a different GI provider. #GI note from Edmar Najera: Patient was seen by [facility] gastroenterology on 06/26/2024. The note reports that they were trying to obtain the surgery report from [facility] as well as inquiring the colorectal surgeons opinion about timing for repeat colonoscopy. Follows with as needed. #Parkinsonian syndrome: Patient is on carbidopa-levodopa 10-500 mg tablet orally 3 times a day. Patient states that he was began on this medication by his previous neurologist due to a side effect from chemotherapy. Patient saw [place]. Ibrahim [place] [facility] [place], requesting notes. Has a follow up scheduled for November 27 2024. #Kidney stones: Patient had a nephrostomy placed in December 2023, he has had it replaced every 3 months. Patient states that he sees Dr. Angela Guevara for nephrology. Patient states that his last reported GFR was over 50%. Reports that his right kidney is completely atrophied and is no longer working. Patient states that he is unsure whether or not he is a candidate for kidney transplant. States his nephrostomy tube was removed, Herrera 2nd. #High cholesterol: Patient states that he is taking rosuvastatin 10 mg daily, states that this was previously monitored by his previous primary care provider. #Gout: Patient states that he is on Febuxostat for his gout. Patient has not admitted to any pain in her joints today, or inflammation. #Anemia: Patient is currently taking iron supplements once daily. I will order a CBC to ensure his hemoglobin and hematocrit are within normal limits. Medicare Wellness Patient is here for a Medicare wellness visit. Complete paperwork was reviewed and updated and has been filed and scan. Depression screen completed. Alcohol AUDIT SCREEN completed. Obesity screen completed. Cardiovascular risk stratification screen completed. Cognition assessed and within reasonable limits Fall risk assessed Discussed healthcare proxy. Discussed [place] order for life sustaining treatment, end-of-life issues, intubation and resuscitation dialysis artificial nutrition and hydration is appropriate. All questions have been answered to patient's satisfaction. Patient verbalized understanding of diagnosis and treatments explained. Advised to call sooner prior to next visit it any questions/concerns arise. Case discussed with Kelby MCKENZIE who reviewed the assessment and plan. Chart, medications, labs, vital signs reviewed. Dictation was accomplished with the use of [employer] voice recognition software, which is prone to medical misidentifications and grammatical errors. This are unintentional and the practitioner does try to identify and correct these, but some could still be present. Please do not hesitate to contact practitioner for clarification. 09/18/2024 Kidney stone (ICD-10 - N20.0) Nic is a 69-year-old male who presents to the office today for a follow-up. Patient is medically complex, I do not have the specialist notes at this time, will request them. #Nephrolithotomy: patient underwent a left percutaneous nephrolithotomy: patient does follow regualry with #Hx Bladder cancer: Patient follows with urology, Dr. Jordan and Dr. Benson [facility]. Patient had a urostomy placed in 2008. Admits that he is cancer free. Patient states that he follows with the specialist regularly, recently had surgery to remove his kidney stones, states the surgery went well. # Hx Colorectal cancer: Patient had a colostomy bag placed in December. Patient states that the surgery was completed by Carter Morales MD at [facility]. Patient states that he is unsure of whether or not he will be obtaining future colonoscopies, has an appointment coming up is unsure of the date. Additionally patient states that he is following with MONIQUE Rothman from [place], awaiting appointment. will try and request [employer] records for the patient to bring to [facility]. 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 He started chemoradiation with Xeloda on 06/14/2023, completed radition on 07/27/2023.Started neoadjuvant FOLFOX on 08/24/23 and completed 6 full cycles. underwent an APR on 12/26/2022. #History of Stage III Bladder Cancer: Treated with neoadjucant MVAC, chemotherpy was followed by cystectomy according to prior oncology note from 08/21/24. #Urology note states that PET scan/CT scan performed on May 26, 2023 showed uptake in the rectum, uptake in the sigmoid colon near the rectosigmoid junction, and uptake in the 0.8 cm right perirectal node. #History of colo rectal cancer: Patient did undergo an APR which was performed by Dr. Morales in [place] at [facility], according to the urology note the pathology revealed a T2 grade 2 adenocarcinoma. At this time patient is trying to obtain a follow-up with the same provider, or obtain a follow-up with a different GI provider. #GI note from Edmar Najera: Patient was seen by [facility] gastroenterology on 06/26/2024. The note reports that they were trying to obtain the surgery report from [facility] as well as inquiring the colorectal surgeons opinion about timing for repeat colonoscopy. #Parkinsonian syndrome: Patient is on carbidopa-levodopa 10-500 mg tablet orally 3 times a day. Patient states that he was began on this medication by his previous neurologist due to a side effect from chemotherapy. [place] saw [place] [facility] [place] notes. #Kidney stones: Patient had a nephrostomy placed in December 2023, he has had it replaced every 3 months. Patient states that he sees Dr. Angela Guevara for nephrology. Patient states that his last reported GFR was over 50%. Reports that his right kidney is completely atrophied and is no longer working. Patient states that he is unsure whether or not he is a candidate for kidney transplant. States his nephrostomy tube may be removed soon, has appointment September 25. #High cholesterol: Patient states that he is taking rosuvastatin 10 mg daily, states that this was previously monitored by his previous primary care provider. I will order labs to ensure he has a sufficient values. #Gout: Patient states that he is on Febuxostat for his gout. Patient has not admitted to any pain in her joints today, or inflammation. #Anemia: Patient is currently taking iron supplements once daily. I will order a CBC to ensure his hemoglobin and hematocrit are within normal limits. All questions have been answered to patient's satisfaction. Patient verbalized understanding of diagnosis and treatments explained. Advised to call sooner prior to next visit it any questions/concerns arise. Case discussed with collaborating physician Kelby Mendenhall who reviewed the assessment and plan. Chart, medications, labs, vital signs reviewed. Dictation was accomplished with the use of [employer] voice recognition software, which is prone to medical misidentifications and grammatical errors. This are unintentional and the practitioner does try to identify and correct these, but some could still be present. Please do not hesitate to contact practitioner for clarification. 11/21/2024 Anemia (ICD-10 - D64.9) Nic is a 69-year-old male who presents to the office today for a MWV. Patient is medically complex, I do not have the specialist notes at this time, will request them. #Nephrolithotomy: patient underwent a left percutaneous nephrolithotomy: patient does follow regualry with . saw on Nov 20 and there are no reported changes, recommended potassium citrate. #Hyperlipidemia: Recent lab values demonstrated a cholesterol of 240, LDL of 153 and non-HDL of 182, continue taking rosuvastatin 10 mg once daily. Patient states that these labs were nonfasting as he did have creamer in his coffee this morning #CBC abnormality: MCHC 31.9, RDW 15.4 and lymphocytes of 0.51 Send #CMP: BUN 31, creatinine 1.65, EGFR 34. Patient does regularly follow with nephrology #Microalbumin creatinine ratio: Microalbumin 72.5, microalbumin creatinine ratio 129. Patient does follow regularly with urology and nephrology. #Hx Bladder cancer: Patient follows with urology, Dr. Godwin from [facility]. Patient had a urostomy placed in 2008. Admits that he is cancer free. Patient states that he follows with the specialist regularly, recently had surgery to remove his kidney stones, states the surgery went well. Appointment in March 2025. #[facility] Surgeon: They have not called him, was following with pt. # Hx Colorectal cancer: Patient had a colostomy bag placed in December. Patient states that the surgery was completed by Carter Morales MD at [facility]. Patient states that he is unsure of whether or not he will be obtaining future colonoscopies, has an appointment coming up is unsure of the date. Additionally patient states that he is following with MONIQUE Rothman from [place], awaiting appointment with screening recommendation. will try and request [employer] records for the patient to bring to [facility]. 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 He started chemoradiation with Xeloda on 06/14/2023, completed radition on 07/27/2023.Started neoadjuvant FOLFOX on 08/24/23 and completed 6 full cycles. underwent an APR on 12/26/2022. Dr Conn Sister Ian next month. #History of Stage III Bladder Cancer: Treated with neoadjucant MVAC, chemotherpy was followed by cystectomy according to prior oncology note from 08/21/24. #Urology note states that PET scan/CT scan performed on May 26, 2023 showed uptake in the rectum, uptake in the sigmoid colon near the rectosigmoid junction, and uptake in the 0.8 cm right perirectal node. #History of colo rectal cancer: Patient did undergo an APR which was performed by Dr. Morales in [place] at [facility], according to the urology note the pathology revealed a T2 grade 2 adenocarcinoma. At this time patient is trying to obtain a follow-up with the same provider, or obtain a follow-up with a different GI provider. #GI note from Edmar Najera: Patient was seen by [facility] gastroenterology on 06/26/2024. The note reports that they were trying to obtain the surgery report from [facility] as well as inquiring the colorectal surgeons opinion about timing for repeat colonoscopy. Follows with as needed. #Parkinsonian syndrome: Patient is on carbidopa-levodopa 10-500 mg tablet orally 3 times a day. Patient states that he was began on this medication by his previous neurologist due to a side effect from chemotherapy. Patient saw [place]. Ibrahim [place] [facility] [place], requesting notes. Has a follow up scheduled for November 27 2024. #Kidney stones: Patient had a nephrostomy placed in December 2023, he has had it replaced every 3 months. Patient states that he sees Dr. Angela Guevara for nephrology. Patient states that his last reported GFR was over 50%. Reports that his right kidney is completely atrophied and is no longer working. Patient states that he is unsure whether or not he is a candidate for kidney transplant. States his nephrostomy tube was removed, September 25. #High cholesterol: Patient states that he is taking rosuvastatin 10 mg daily, states that this was previously monitored by his previous primary care provider. #Gout: Patient states that he is on Febuxostat for his gout. Patient has not admitted to any pain in her joints today, or inflammation. #Anemia: Patient is currently taking iron supplements once daily. I will order a CBC to ensure his hemoglobin and hematocrit are within normal limits. Medicare Wellness Patient is here for a Medicare wellness visit. Complete paperwork was reviewed and updated and has been filed and scan. Depression screen completed. Alcohol AUDIT SCREEN completed. Obesity screen completed. Cardiovascular risk stratification screen completed. Cognition assessed and within reasonable limits Fall risk assessed Discussed healthcare proxy. Discussed [place] order for life sustaining treatment, end-of-life issues, intubation and resuscitation dialysis artificial nutrition and hydration is appropriate. All questions have been answered to patient's satisfaction. Patient verbalized understanding of diagnosis and treatments explained. Advised to call sooner prior to next visit it any questions/concerns arise. Case discussed with Kelby MCKENZIE who reviewed the assessment and plan. Chart, medications, labs, vital signs reviewed. Dictation was accomplished with the use of [employer] voice recognition software, which is prone to medical misidentifications and grammatical errors. This are unintentional and the practitioner does try to identify and correct these, but some could still be present. Please do not hesitate to contact practitioner for clarification. 03/06/2025 Anemia (ICD-10 - D64.9) Nic is a 69-year-old male who presents to the office today for a f/u.. #Hip lump: At this time due to patient's extensive history of cancer I feel as though obtaining a CAT scan with contrast would be most appropriate for further evaluation of this rather large mass on patient's left trochanter of femur. I called Dr. Angela Guevara's office and left a voicemail in regards to his thoughts on having the patient undergo the CT scan with or without contrast. Will hold off on placing order until we hear back from the percussion tuner. He is to call our office tomorrow morning with an update. 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 #Oncology appointment: Scheduled for May, patient does have a CT scan scheduled for June 11 and at oncology appoint with Dr. Conn on June 21.States that he always obtains blood work before these appointments. #Nephrolithotomy: patient underwent a left percutaneous nephrolithotomy: patient does follow regualry with . saw on Nov 20 and there are no reported changes, recommended potassium citrate. #Hyperlipidemia: Recent lab values demonstrated a cholesterol of 240, LDL of 153 and non-HDL of 182, continue taking rosuvastatin 10 mg once daily. #CBC abnormality: Recent CBC, MCHC 31.9, RDW 15.4 and lymphocytes of 0.51.. #CMP: Recent...BUN 31, creatinine 1.65, EGFR 34. Patient does regularly follow with nephrology #Microalbumin creatinine ratio: Microalbumin 72.5, microalbumin creatinine ratio 129. Patient does follow regularly with urology and nephrology. #Hx Bladder cancer: Patient follows with urology, Dr. Godwin from [facility]. Patient had a urostomy placed in 2008. Admits that he is cancer free. Patient states that he follows with the specialist regularly, recently had surgery to remove his kidney stones, states the surgery went well. Appointmentand US in March 2025. #[facility]: They have not called him, was following with pt. # Hx Colorectal cancer: Patient had a colostomy bag placed in December. Patient states that the surgery was completed by Carter Morales MD at [facility]. Patient states that he is unsure of whether or not he will be obtaining future colonoscopies, has an appointment coming up is unsure of the date. Additionally patient states that he is following with MONIQUE Rothman from [place], awaiting appointment with screening recommendation. will try and request [employer] records for the patient to bring to [facility]. 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 He started chemoradiation with Xeloda on 06/14/2023, completed radition on 07/27/2023.Started neoadjuvant FOLFOX on 08/24/23 and completed 6 full cycles. underwent an APR on 12/26[facility]2022[facility] #History of Stage III Bladder Cancer: Treated with neoadjucant MVAC, chemotherpy was followed by cystectomy according to prior oncology note from 08/21/24. #Urology note states that PET scan/CT scan performed on May 26, 2023 showed uptake in the rectum, uptake in the sigmoid colon near the rectosigmoid junction, and uptake in the 0.8 cm right perirectal node. #History of colo rectal cancer: Patient did undergo an APR which was performed by Dr. Morales in [place] at [facility], according to the urology note the pathology revealed a T2 grade 2 adenocarcinoma. At this time patient is trying to obtain a follow-up with the same provider, or obtain a follow-up with a different GI provider. #GI note from Edmar Najera: Patient was seen by [facility] gastroenterology on 06/26/2024. The note reports that they were trying to obtain the surgery report from [facility] as well as inquiring the colorectal surgeons opinion about timing for repeat colonoscopy. Follows with as needed. #Parkinsonian syndrome: Patient is on carbidopa-levodopa 10-500 mg tablet orally 3 times a day. Patient states that he was began on this medication by his previous neurologist due to a side effect from chemotherapy. Patient [place]. Ibrahim [place] [facility] [place], requesting notes. Saw last in Nov 2024, was started on Lyrice 150mg QD... would benefit from BID.. he will call #Kidney stones: Patient had a nephrostomy placed in December 2023, he has had it replaced every 3 months. Patient states that he sees Dr. Angela Guevara for nephrology. Patient states that his last reported GFR was over 50%. Reports that his right kidney is completely atrophied and is no longer working. Patient states that he is unsure whether or not he is a candidate for kidney transplant. States his nephrostomy tube was removed, September 25. #Gout: Patient states that he is on Febuxostat for his gout. All questions have been answered to patient's satisfaction. Patient verbalized understanding of diagnosis and treatments explained. Advised to call sooner prior to next visit it any questions/concerns arise. Case discussed with Kelby MCKENZIE who reviewed the assessment and plan. Chart, medications, labs, vital signs reviewed. Dictation was accomplished with the use of [employer] voice recognition software, which is prone to medical misidentifications and grammatical errors. This are unintentional and the practitioner does try to identify and correct these, but some could still be present. Please do not hesitate to contact practitioner for clarification. 04/17/2025 Anemia (ICD-10 - D64.9) Nic is a 69-year-old male who presents to the office today for a f/u.. #Tension Headaches: Per research on [employer], medication such as sumatriptan, amitriptyline have multiple interactions with medications that the patient is on, he is encouraged to discuss tension headache protocol with Dr. Ibrahim at his follow-up. #purpura: Obtaining CBC, iron studies, however patient advised that these are more than likely benign findings #NEOS: Has an appointment on June 19 2025 for hip femoral fluid collection, will try to expidite this process... #Hip lump: 03/15/2025, patient was given IV hydration protocol before and after imaging. Findings included Moderate osteoarthritis of the left hip,No evidence of metastatic disease in the visualized left pelvis or femur, The observation of a circumscribed fluid collection along the surface of the iliotibial band requires clinical correlation. This could represent a relatively subacute or old liquefied hematoma (if there was fall/trauma to the lateral hip). The edema of the overlying subcutaneous tissues could be from trauma or inflammation. No soft tissue gas in this area. The collection could be aspirated if there is clinical suspicion of an infected collection NEOS referral was placed, stsates he has an apt June 19 2025.. 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 #Oncology appointment: Scheduled for May, patient does have a CT scan scheduled for June 11 and at oncology appoint with Dr. Conn on June 21.States that he always obtains blood work before these appointments. #Nephrolithotomy: patient underwent a left percutaneous nephrolithotomy: patient does follow regualry with . saw on Nov 20 and there are no reported changes, recommended potassium citrate. #Hyperlipidemia: Recent lab values demonstrated a cholesterol of 240, LDL of 153 and non-HDL of 182, continue taking rosuvastatin 10 mg once daily. #CBC abnormality: Recent CBC, MCHC 31.9, RDW 15.4 and lymphocytes of 0.51.. Obtaining repeat #CMP: Recent...BUN 31, creatinine 1.65, EGFR 34. Patient does regularly follow with nephrology... #Microalbumin creatinine ratio: Last Microalbumin 72.5, microalbumin creatinine ratio 129. Patient does follow regularly with urology and nephrology. #Hx Bladder cancer: Patient follows with urology, Dr. Santana from [facility]. Patient had a urostomy placed in 2008. Admits that he is cancer free. Patient states that he follows with the specialist regularly, recently had surgery to remove his kidney stones, states the surgery went well. Appointmentand US in March 2025. #[facility] Surgeon: They have not called him, was following with pt. # Hx Colorectal cancer: Patient had a colostomy bag placed in December. Patient states that the surgery was completed by Carter Morales MD at [facility]. Patient states that he is unsure of whether or not he will be obtaining future colonoscopies, has an appointment coming up is unsure of the date. Additionally patient states that he is following with MONIQUE Rothman from [place], awaiting appointment with screening recommendation. will try and request [employer] records for the patient to bring to [facility]. 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 He started chemoradiation with Xeloda on 06/14/2023, completed radition on 07/27/2023.Started neoadjuvant FOLFOX on 08/24/23 and completed 6 full cycles. underwent an APR on 12/26/2022. Dr Conn Sister Ian next month. #History of Stage III Bladder Cancer: Treated with neoadjucant MVAC, chemotherpy was followed by cystectomy according to prior oncology note from 08/21/24. #Urology note states that PET scan/CT scan performed on May 26, 2023 showed uptake in the rectum, uptake in the sigmoid colon near the rectosigmoid junction, and uptake in the 0.8 cm right perirectal node. #History of colo rectal cancer: Patient did undergo an APR which was performed by Dr. Morales in [place] at [facility], according to the urology note the pathology revealed a T2 grade 2 adenocarcinoma. At this time patient is trying to obtain a follow-up with the same provider, or obtain a follow-up with a different GI provider. #GI note from Edmar Najera: Patient was seen by [facility] gastroenterology on 06/26/2024. The note reports that they were trying to obtain the surgery report from [facility] as well as inquiring the colorectal surgeons opinion about timing for repeat colonoscopy. Follows with as needed. #Parkinsonian syndrome: Patient is on carbidopa-levodopa 10-500 mg tablet orally 3 times a day. Patient states that he was began on this medication by his previous neurologist due to a side effect from chemotherapy. Patient [place] I[place] [facility] [place] requesting [place]. Saw last in Nov 2024..Continue Lyrice 150mg BID.. F/u May 28 #Kidney stones: Patient had a nephrostomy placed in December 2023, he has had it replaced every 3 months. Patient states that he sees Dr. Angela Guevara for nephrology. Patient states that his last reported GFR was over 50%. Reports that his right kidney is completely atrophied and is no longer working. Patient states that he is unsure whether or not he is a candidate for kidney transplant. States his nephrostomy tube was removed, September 25... F/u is on May 21 2025 #Gout: Patient states that he is on Febuxostat for his gout. All questions have been answered to patient's satisfaction. Patient verbalized understanding of diagnosis and treatments explained. Advised to call sooner prior to next visit it any questions/concerns arise. Dictation was accomplished with the use of [employer] voice recognition software, which is prone to medical misidentifications and grammatical errors. This are unintentional and the practitioner does try to identify and correct these, but some could still be present. Please do not hesitate to contact practitioner for clarification. 04/17/2025 Encounter for examination of blood pressure with abnormal findings (ICD-10 - Z01.31) Nic is a 69-year-old male who presents to the office today for a f/u.. #Tension Headaches: Per research on [employer], medication such as sumatriptan, amitriptyline have multiple interactions with medications that the patient is on, he is encouraged to discuss tension headache protocol with Dr. Ibrahim at his follow-up. #purpura: Obtaining CBC, iron studies, however patient advised that these are more than likely benign findings #NEOS: Has an appointment on June 19 2025 for hip femoral fluid collection, will try to expidite this process... #Hip lump: 03/15/2025, patient was given IV hydration protocol before and after imaging. Findings included Moderate osteoarthritis of the left hip,No evidence of metastatic disease in the visualized left pelvis or femur, The observation of a circumscribed fluid collection along the surface of the iliotibial band requires clinical correlation. This could represent a relatively subacute or old liquefied hematoma (if there was fall/trauma to the lateral hip). The edema of the overlying subcutaneous tissues could be from trauma or inflammation. No soft tissue gas in this area. The collection could be aspirated if there is clinical suspicion of an infected collection NEOS referral was placed, stsates he has an apt June 19 2025.. 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 #Oncology appointment: Scheduled for May, patient does have a CT scan scheduled for June 11 and at oncology appoint with Dr. Conn on June 21.States that he always obtains blood work before these appointments. #Nephrolithotomy: patient underwent a left percutaneous nephrolithotomy: patient does follow regualry with . saw on Nov 20 and there are no reported changes, recommended potassium citrate. #Hyperlipidemia: Recent lab values demonstrated a cholesterol of 240, LDL of 153 and non-HDL of 182, continue taking rosuvastatin 10 mg once daily. #CBC abnormality: Recent CBC, MCHC 31.9, RDW 15.4 and lymphocytes of 0.51.. Obtaining repeat #CMP: Recent...BUN 31, creatinine 1.65, EGFR 34. Patient does regularly follow with nephrology... #Microalbumin creatinine ratio: Last Microalbumin 72.5, microalbumin creatinine ratio 129. Patient does follow regularly with urology and nephrology. #Hx Bladder cancer: Patient follows with urology, Dr. Santana from [facility]. Patient had a urostomy placed in 2008. Admits that he is cancer free. Patient states that he follows with the specialist regularly, recently had surgery to remove his kidney stones, states the surgery went well. Appointmentand US in March 2025. #[facility] Surgeon: They have not called him, was following with pt. # Hx Colorectal cancer: Patient had a colostomy bag placed in December. Patient states that the surgery was completed by Carter Morales MD at [facility]. Patient states that he is unsure of whether or not he will be obtaining future colonoscopies, has an appointment coming up is unsure of the date. Additionally patient states that he is following with MONIQUE Rothman from [place], awaiting appointment with screening recommendation. will try and request [employer] records for the patient to bring to [facility]. 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 He started chemoradiation with Xeloda on 06/14/2023, completed radition on 07/27/2023.Started neoadjuvant FOLFOX on 08/24/23 and completed 6 full cycles. underwent an APR on 12/26/2022. Dr Conn Sister Bertrandrome next month. #History of Stage III Bladder Cancer: Treated with neoadjucant MVAC, chemotherpy was followed by cystectomy according to prior oncology note from 08/21/24. #Urology note states that PET scan/CT scan performed on May 26, 2023 showed uptake in the rectum, uptake in the sigmoid colon near the rectosigmoid junction, and uptake in the 0.8 cm right perirectal node. #History of colo rectal cancer: Patient did undergo an APR which was performed by Dr. Morales in [place] at [facility], according to the urology note the pathology revealed a T2 grade 2 adenocarcinoma. At this time patient is trying to obtain a follow-up with the same provider, or obtain a follow-up with a different GI provider. #GI note from Edmar Najera: Patient was seen by [facility] gastroenterology on 06/26/2024. The note reports that they were trying to obtain the surgery report from [facility] as well as inquiring the colorectal surgeons opinion about timing for repeat colonoscopy. Follows with as needed. #Parkinsonian syndrome: Patient is on carbidopa-levodopa 10-500 mg tablet orally 3 times a day. Patient states that he was began on this medication by his previous neurologist due to a side effect from chemotherapy. Patient [place]. Ibrahim [place] [facility] [place] requesting notes. Saw last in Nov 2024..Continue Lyrice 150mg BID.. F/u May 28 #Kidney stones: Patient had a nephrostomy placed in December 2023, he has had it replaced every 3 months. Patient states that he sees Dr. Angela Guevara for nephrology. Patient states that his last reported GFR was over 50%. Reports that his right kidney is completely atrophied and is no longer working. Patient states that he is unsure whether or not he is a candidate for kidney transplant. States his nephrostomy tube was removed, September 25... F/u is on May 21 2025 #Gout: Patient states that he is on Febuxostat for his gout. All questions have been answered to patient's satisfaction. Patient verbalized understanding of diagnosis and treatments explained. Advised to call sooner prior to next visit it any questions/concerns arise. Dictation was accomplished with the use of [employer] voice recognition software, which is prone to medical misidentifications and grammatical errors. This are unintentional and the practitioner does try to identify and correct these, but some could still be present. Please do not hesitate to contact practitioner for clarification. 03/06/2025 Encounter for examination of blood pressure with abnormal findings (ICD-10 - Z01.31) Nic is a 69-year-old male who presents to the office today for a f/u.. #Hip lump: At this time due to patient's extensive history of cancer I feel as though obtaining a CAT scan with contrast would be most appropriate for further evaluation of this rather large mass on patient's left trochanter of femur. I called Dr. Angela Guevara's office and left a voicemail in regards to his thoughts on having the patient undergo the CT scan with or without contrast. Will hold off on placing order until we hear back from the percussion tuner. He is to call our office tomorrow morning with an update. 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 #Oncology appointment: Scheduled for May, patient does have a CT scan scheduled for June 11 and at oncology appoint with Dr. Conn on June 21.States that he always obtains blood work before these appointments. #Nephrolithotomy: patient underwent a left percutaneous nephrolithotomy: patient does follow regualry with . saw on Nov 20 and there are no reported changes, recommended potassium citrate. #Hyperlipidemia: Recent lab values demonstrated a cholesterol of 240, LDL of 153 and non-HDL of 182, continue taking rosuvastatin 10 mg once daily. #CBC abnormality: Recent CBC, MCHC 31.9, RDW 15.4 and lymphocytes of 0.51.. #CMP: Recent...BUN 31, creatinine 1.65, EGFR 34. Patient does regularly follow with nephrology #Microalbumin creatinine ratio: Microalbumin 72.5, microalbumin creatinine ratio 129. Patient does follow regularly with urology and nephrology. #Hx Bladder cancer: Patient follows with urology, Dr. Godwin from [facility]. Patient had a urostomy placed in 2008. Admits that he is cancer free. Patient states that he follows with the specialist regularly, recently had surgery to remove his kidney stones, states the surgery went well. Appointmentand US in March 2025. #[facility] Surgeon: They have not called him, was following with pt. # Hx Colorectal cancer: Patient had a colostomy bag placed in December. Patient states that the surgery was completed by Carter Morales MD at [facility]. Patient states that he is unsure of whether or not he will be obtaining future colonoscopies, has an appointment coming up is unsure of the date. Additionally patient states that he is following with MONIQUE Rothman from [place], awaiting appointment with screening recommendation. will try and request [employer] records for the patient to bring to [facility]. 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 He started chemoradiation with Xeloda on 06/14/2023, completed radition on 07/27/2023.Started neoadjuvant FOLFOX on 08/24/23 and completed 6 full cycles. underwent an APR on 12/26/2022. Dr Conn Sister Ian next month. #History of Stage III Bladder Cancer: Treated with neoadjucant MVAC, chemotherpy was followed by cystectomy according to prior oncology note from 08/21/24. #Urology note states that PET scan/CT scan performed on May 26, 2023 showed uptake in the rectum, uptake in the sigmoid colon near the rectosigmoid junction, and uptake in the 0.8 cm right perirectal node. #History of colo rectal cancer: Patient did undergo an APR which was performed by Dr. Morales in [place] at [facility], according to the urology note the pathology revealed a T2 grade 2 adenocarcinoma. At this time patient is trying to obtain a follow-up with the same provider, or obtain a follow-up with a different GI provider. #GI note from Edmar Najera: Patient was seen by [facility] gastroenterology on 06/26/2024. The note reports that they were trying to obtain the surgery report from [facility] as well as inquiring the colorectal surgeons opinion about timing for repeat colonoscopy. Follows with as needed. #Parkinsonian syndrome: Patient is on carbidopa-levodopa 10-500 mg tablet orally 3 times a day. Patient states that he was began on this medication by his previous neurologist due to a side effect from chemotherapy. Patient [place]. Ibrahim [place] [facility] [place] notes. Saw last in Nov 2024, was started on Lyrice 150mg QD... would benefit from BID.. he will call #Kidney stones: Patient had a nephrostomy placed in December 2023, he has had it replaced every 3 months. Patient states that he sees Dr. Angela Guevara for nephrology. Patient states that his last reported GFR was over 50%. Reports that his right kidney is completely atrophied and is no longer working. Patient states that he is unsure whether or not he is a candidate for kidney transplant. States his nephrostomy tube was removed, September 25. #Gout: Patient states that he is on Febuxostat for his gout. All questions have been answered to patient's satisfaction. Patient verbalized understanding of diagnosis and treatments explained. Advised to call sooner prior to next visit it any questions/concerns arise. Case discussed with Kelby MCKENZIE who reviewed the assessment and plan. Chart, medications, labs, vital signs reviewed. Dictation was accomplished with the use of [employer] voice recognition software, which is prone to medical misidentifications and grammatical errors. This are unintentional and the practitioner does try to identify and correct these, but some could still be present. Please do not hesitate to contact practitioner for clarification. 11/21/2024 Nephrolithiasis (ICD-10 - N20.0) Nic is a 69-year-old male who presents to the office today for a MWV. Patient is medically complex, I do not have the specialist notes at this time, will request them. #Nephrolithotomy: patient underwent a left percutaneous nephrolithotomy: patient does follow regualry with . saw on Nov 20 and there are no reported changes, recommended potassium citrate. #Hyperlipidemia: Recent lab values demonstrated a cholesterol of 240, LDL of 153 and non-HDL of 182, continue taking rosuvastatin 10 mg once daily. Patient states that these labs were nonfasting as he did have creamer in his coffee this morning #CBC abnormality: MCHC 31.9, RDW 15.4 and lymphocytes of 0.51 Send #CMP: BUN 31, creatinine 1.65, EGFR 34. Patient does regularly follow with nephrology #Microalbumin creatinine ratio: Microalbumin 72.5, microalbumin creatinine ratio 129. Patient does follow regularly with urology and nephrology. #Hx Bladder cancer: Patient follows with urology, Dr. Godwin from [facility]. Patient had a urostomy placed in 2008. Admits that he is cancer free. Patient states that he follows with the specialist regularly, recently had surgery to remove his kidney stones, states the surgery went well. Appointment in March 2025. #[facility] Surgeon: They have not called him, was following with pt. # Hx Colorectal cancer: Patient had a colostomy bag placed in December. Patient states that the surgery was completed by Carter Morales MD at [facility]. Patient states that he is unsure of whether or not he will be obtaining future colonoscopies, has an appointment coming up is unsure of the date. Additionally patient states that he is following with MONIQUE Rothman from [place], awaiting appointment with screening recommendation. will try and request [employer] records for the patient to bring to [facility]. 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 He started chemoradiation with Xeloda on 06/14/2023, completed radition on 07/27/2023.Started neoadjuvant FOLFOX on 08/24/23 and completed 6 full cycles. underwent an APR on 12/26/2022. Dr Conn Sister Ian next month. #History of Stage III Bladder Cancer: Treated with neoadjucant MVAC, chemotherpy was followed by cystectomy according to prior oncology note from 08/21/24. #Urology note states that PET scan/CT scan performed on May 26, 2023 showed uptake in the rectum, uptake in the sigmoid colon near the rectosigmoid junction, and uptake in the 0.8 cm right perirectal node. #History of colo rectal cancer: Patient did undergo an APR which was performed by Dr. Morales in [place] at [facility], according to the urology note the pathology revealed a T2 grade 2 adenocarcinoma. At this time patient is trying to obtain a follow-up with the same provider, or obtain a follow-up with a different GI provider. #GI note from Edmar Najera: Patient was seen by [facility] gastroenterology on 06/26/2024. The note reports that they were trying to obtain the surgery report from [facility] as well as inquiring the colorectal surgeons opinion about timing for repeat colonoscopy. Follows with as needed. #Parkinsonian syndrome: Patient is on carbidopa-levodopa 10-500 mg tablet orally 3 times a day. Patient states that he was began on this medication by his previous neurologist due to a side effect from chemotherapy. Patient [place]. Ibrahim [place] [facility] [place]. Has a follow up scheduled for November 27 2024. #Kidney stones: Patient had a nephrostomy placed in December 2023, he has had it replaced every 3 months. Patient states that he sees Dr. Angela Guevara for nephrology. Patient states that his last reported GFR was over 50%. Reports that his right kidney is completely atrophied and is no longer working. Patient states that he is unsure whether or not he is a candidate for kidney transplant. States his nephrostomy tube was removed, September 25. #High cholesterol: Patient states that he is taking rosuvastatin 10 mg daily, states that this was previously monitored by his previous primary care provider. #Gout: Patient states that he is on Febuxostat for his gout. Patient has not admitted to any pain in her joints today, or inflammation. #Anemia: Patient is currently taking iron supplements once daily. I will order a CBC to ensure his hemoglobin and hematocrit are within normal limits. Medicare Wellness Patient is here for a Medicare wellness visit. Complete paperwork was reviewed and updated and has been filed and scan. Depression screen completed. Alcohol AUDIT SCREEN completed. Obesity screen completed. Cardiovascular risk stratification screen completed. Cognition assessed and within reasonable limits Fall risk assessed Discussed healthcare proxy. Discussed [place] order for life sustaining treatment, end-of-life issues, intubation and resuscitation dialysis artificial nutrition and hydration is appropriate. All questions have been answered to patient's satisfaction. Patient verbalized understanding of diagnosis and treatments explained. Advised to call sooner prior to next visit it any questions/concerns arise. Case discussed with Kelby MCKENZIE who reviewed the assessment and plan. Chart, medications, labs, vital signs reviewed. Dictation was accomplished with the use of [employer] voice recognition software, which is prone to medical misidentifications and grammatical errors. This are unintentional and the practitioner does try to identify and correct these, but some could still be present. Please do not hesitate to contact practitioner for clarification. 04/17/2025 Fatigue, unspecified type (ICD-10 - R53.83) Nic is a 69-year-old male who presents to the office today for a f/u.. #Tension Headaches: Per research on [employer], medication such as sumatriptan, amitriptyline have multiple interactions with medications that the patient is on, he is encouraged to discuss tension headache protocol with Dr. Ibrahim at his follow-up. #purpura: Obtaining CBC, iron studies, however patient advised that these are more than likely benign findings #NEOS: Has an appointment on June 19 2025 for hip femoral fluid collection, will try to expidite this process... #Hip lump: 03/15/2025, patient was given IV hydration protocol before and after imaging. Findings included Moderate osteoarthritis of the left hip,No evidence of metastatic disease in the visualized left pelvis or femur, The observation of a circumscribed fluid collection along the surface of the iliotibial band requires clinical correlation. This could represent a relatively subacute or old liquefied hematoma (if there was fall/trauma to the lateral hip). The edema of the overlying subcutaneous tissues could be from trauma or inflammation. No soft tissue gas in this area. The collection could be aspirated if there is clinical suspicion of an infected collection NEOS referral was placed, stsates he has an apt June 19 2025.. 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 #Oncology appointment: Scheduled for May, patient does have a CT scan scheduled for June 11 and at oncology appoint with Dr. Conn on June 21.States that he always obtains blood work before these appointments. #Nephrolithotomy: patient underwent a left percutaneous nephrolithotomy: patient does follow regualry with . saw on Nov 20 and there are no reported changes, recommended potassium citrate. #Hyperlipidemia: Recent lab values demonstrated a cholesterol of 240, LDL of 153 and non-HDL of 182, continue taking rosuvastatin 10 mg once daily. #CBC abnormality: Recent CBC, MCHC 31.9, RDW 15.4 and lymphocytes of 0.51.. Obtaining repeat #CMP: Recent...BUN 31, creatinine 1.65, EGFR 34. Patient does regularly follow with nephrology... #Microalbumin creatinine ratio: Last Microalbumin 72.5, microalbumin creatinine ratio 129. Patient does follow regularly with urology and nephrology. #Hx Bladder cancer: Patient follows with urology, Dr. Santana from [facility]. Patient had a urostomy placed in 2008. Admits that he is cancer free. Patient states that he follows with the specialist regularly, recently had surgery to remove his kidney stones, states the surgery went well. Appointmentand US in March 2025. #[facility] Surgeon: They have not called him, was following with pt. # Hx Colorectal cancer: Patient had a colostomy bag placed in December. Patient states that the surgery was completed by Carter Morales MD at [facility]. Patient states that he is unsure of whether or not he will be obtaining future colonoscopies, has an appointment coming up is unsure of the date. Additionally patient states that he is following with MONIQUE Rothman from [place], awaiting appointment with screening recommendation. will try and request [facility] records for the patient to bring to [facility]. 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 He started chemoradiation with Xeloda on 06/14/2023, completed radition on 07/27/2023.Started neoadjuvant FOLFOX on 08/24/23 and completed 6 full cycles. underwent an APR on 12/26/2022. Dr Conn Sister Ian next month. #History of Stage III Bladder Cancer: Treated with neoadjucant MVAC, chemotherpy was followed by cystectomy according to prior oncology note from 08/21/24. #Urology note states that PET scan/CT scan performed on May 26, 2023 showed uptake in the rectum, uptake in the sigmoid colon near the rectosigmoid junction, and uptake in the 0.8 cm right perirectal node. #History of colo rectal cancer: Patient did undergo an APR which was performed by Dr. Morales in [place] at [facility], according to the urology note the pathology revealed a T2 grade 2 adenocarcinoma. At this time patient is trying to obtain a follow-up with the same provider, or obtain a follow-up with a different GI provider. #GI note from Edmar Najera: Patient was seen by [facility] gastroenterology on 06/26/2024. The note reports that they were trying to obtain the surgery report from [facility] as well as inquiring the colorectal surgeons opinion about timing for repeat colonoscopy. Follows with as needed. #Parkinsonian syndrome: Patient is on carbidopa-levodopa 10-500 mg tablet orally 3 times a day. Patient states that he was began on this medication by his previous neurologist due to a side effect from chemotherapy. Patient [place]. Ibrahim [place] [facility] [place] requesting notes. Saw last in Nov 2024..Continue Lyrice 150mg BID.. F/u May 28 #Kidney stones: Patient had a nephrostomy placed in December 2023, he has had it replaced every 3 months. Patient states that he sees Dr. Angela Guevara for nephrology. Patient states that his last reported GFR was over 50%. Reports that his right kidney is completely atrophied and is no longer working. Patient states that he is unsure whether or not he is a candidate for kidney transplant. States his nephrostomy tube was removed, September 25... F/u is on May 21 2025 #Gout: Patient states that he is on Febuxostat for his gout. All questions have been answered to patient's satisfaction. Patient verbalized understanding of diagnosis and treatments explained. Advised to call sooner prior to next visit it any questions/concerns arise. Dictation was accomplished with the use of [employer] voice recognition software, which is prone to medical misidentifications and grammatical errors. This are unintentional and the practitioner does try to identify and correct these, but some could still be present. Please do not hesitate to contact practitioner for clarification. Plan Of Treatment Pending Test Test Name Order Date CT Scan : Hip, Left 03/08/2025 CRP, HIGH SENSITIVITY 08/16/2024 XR Hand 2 Views bilat 02/20/2025 LIPID PANEL, STANDARD 08/16/2024 MICROALBUMIN, RANDOM URINE (W/CREATININE ) 08/16/2024 IRON, TIBC AND FERRITIN PANEL 04/17/2025 COMPREHENSIVE METABOLIC PANEL 08/16/2024 BASIC METABOLIC PANEL 08/16/2024 POTASSIUM 05/16/2025 CBC (INCLUDES DIFF/PLT) 04/17/2025 CBC (INCLUDES DIFF/PLT) 08/16/2024 HEMOGLOBIN A1c 08/16/2024 VITAMIN B12 08/16/2024 PSA (FREE AND TOTAL) 08/16/2024 TSH 08/16/2024 VITAMIN D,25-OH,TOTAL,IA 08/16/2024 CT Hip LT WO 03/06/2025 VITAMIN D 25 HYDROXY 05/16/2025 MAGNESIUM 05/16/2025 COMPREHENSIVE METABOLIC PANEL 05/16/2025 PARATHYROID HORMONE INTACT 05/16/2025 PROTEIN AND CREATININE WITH RATIO, URINE 05/16/2025 URINALYSIS WITH REFLEX MICROSCOPIC 05/16 PHOSPHORUS 05/16/2025 URIC ACID 05/16/2025 STONE ANALYSIS 05/21/2025 URIC ACID, URINE 05/16/2025 CALCIUM, URINE, RANDOM 05/16/2025 Next Appt Details Provider Name:MYLES PAGE, 11:00:00 AM, [address], [place], [address], Insurance Providers Payer Name Payer Address Payer Phone Subscriber Number Group Number Insured Name Patient Relationship to Insured Coverage Start Date Coverage End Date Medicare Part B J14 [address] [place] [address] [id number] Nic Frazier Self - patient is the insured 2 [employer] [address] [place] [address] 64 [id number] Nic Frazier Self - patient is the insured 2 [facility] [address] [place] [address]20 [id number] Nic Frazier Self - patient is the insured Medical (General) History Medical History History ICD Code Gout weight gain/loss hearing loss Colorectal cancer C19 Bladder carcinoma C67.9 Hypercholesteremia E78.00 Nephrolithiasis N20.0 Anemia D64.9 Headache R51 Surgical History Surgery Date(Month/Year) mesh surgery around stoma 08/08/2010 knee surgery 30-40yrs ago bladder surgery Spinal fusion 2018 Colorectal Surgery 2023 Urostomy and Colostomy Hospitalization History Reason Date(Month/Year) colostomy present cancer of bladder 2008 vitamin b12 defiency kidney stones colorectal cancer 12/31/2023 bladder cancer 08/08/2009
--- OUTSIDE RECORDS SUMMARY | 2025-05-28 11:04 | XMS_ITS | Encounter Summary ---
Author Organization [facility] Address [address] [address] Phone Care Team Providers Care Head Bucker Name Role Phone Ken Mendenhall MD Primary Care Provider [phone] Encounter Details Date Type Department Care Team ([facility] Contact Info) Description 05/20/2025 Orders Only [facility] 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); Urostomy present (HCC); Rectal cancer (HCC); Chronic metabolic acidosis; History of total cystectomy; Gout, not otherwise specified; Electrolyte imbalance; Bilateral hydronephrosis; Acute nontraumatic kidney injury, not otherwise specified (HCC) Social History Tobacco Use Types Packs/Day Years Used Date Smoking Tobacco: Former Cigarettes Q uit: 10/25/1976 Smokeless Tobacco: Never Comments:Smoking History Inf o:Every day Alcohol Use Standard Drinks/Week Comments Yes 0 (1 standard drink = 0.6 oz pur e alcohol) Few beers or wine a week Sex and Gender Information Value Date Recorded Sex Assigned at Not on file Legal Sex Male 4:48 PM EST Gender Identity Not on file Sexual Orientation Not on file documented as of this encounter Plan of Treatment Upcoming Encounters Date Type Department Care Team (Late Contact Info) Description 11/20/2025 10:00 AM EST Office Visit [facility] [address] [phone] Jean Rosas MD [address] [phone] documented as of this encounter Procedures Procedure Name Priority Date/Time Associated Diagnosis Comments URIC ACID, URINE Routine 05/16/2025 3:13 PM EDT Stage 3b chronic kidney disease (HCC) 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) Urostomy present (HCC) Rectal cancer (HCC) Chronic metabolic acidosis History of total cystectomy Gout, not otherwise specified Electrolyte imbalance Bilateral hydronephrosis Acute nontraumatic kidney injury, not otherwise specified (HCC) PROTEIN / CREATININE RATIO, URINE Routine 05/16/2025 3:13 PM EDT Stage 3b chronic kidney disease (HCC) 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) Urostomy present (HCC) Rectal cancer (HCC) Chronic metabolic acidosis History of total cystectomy Gout, not otherwise specified Electrolyte imbalance Bilateral hydronephrosis Acute nontraumatic kidney injury, not otherwise specified (HCC) URINALYSIS RFX MICROSCOPIC Routine 05/16/2025 3:13 PM EDT CALCIUM, URINE, RANDOM Routine 05/16/2025 3:13 PM EDT Stage 3b chronic kidney disease (HCC) 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) Urostomy present (HCC) Rectal cancer (HCC) Chronic metabolic acidosis History of total cystectomy Gout, not otherwise specified Electrolyte imbalance Bilateral hydronephrosis Acute nontraumatic kidney injury, not otherwise specified (HCC) CBC WITH AUTO DIFFERENTIAL Routine 05/16/2025 3:02 PM EDT IRON PANEL (FE, TIBC, TSAT) Routine 05/16/2025 3:02 PM EDT VITAMIN D 25 HYDROXY Routine 05/16/2025 3:02 PM EDT Stage 3b chronic kidney disease (HCC) 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) Urostomy present (HCC) Rectal cancer (HCC) Chronic metabolic acidosis History of total cystectomy Gout, not otherwise specified Electrolyte imbalance Bilateral hydronephrosis Acute nontraumatic kidney injury, not otherwise specified (HCC) URIC ACID Routine 05/16/2025 3:02 PM EDT Stage 3b chronic kidney disease (HCC) 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) Urostomy present (HCC) Rectal cancer (HCC) Chronic metabolic acidosis History of total cystectomy Gout, not otherwise specified Electrolyte imbalance Bilateral hydronephrosis Acute nontraumatic kidney injury, not otherwise specified (HCC) PHOSPHATE ( PHOSPHORUS) Routine 05/16/2025 3:02 PM EDT Stage 3b chronic kidney disease (HCC) 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) Urostomy present (HCC) Rectal cancer (HCC) Chronic metabolic acidosis History of total cystectomy Gout, not otherwise specified Electrolyte imbalance Bilateral hydronephrosis Acute nontraumatic kidney injury, not otherwise specified (HCC) PTH, INTACT Routine 05/16/2025 3:02 PM EDT Stage 3b chronic kidney disease (HCC) 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) Urostomy present (HCC) Rectal cancer (HCC) Chronic metabolic acidosis History of total cystectomy Gout, not otherwise specified Electrolyte imbalance Bilateral hydronephrosis Acute nontraumatic kidney injury, not otherwise specified (HCC) MAGNESIUM Routine 05/16/2025 3:02 PM EDT Stage 3b chronic kidney disease (HCC) 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) Urostomy present (HCC) Rectal cancer (HCC) Chronic metabolic acidosis History of total cystectomy Gout, not otherwise specified Electrolyte imbalance Bilateral hydronephrosis Acute nontraumatic kidney injury, not otherwise specified (HCC) COMPREHENSIVE METABOLIC PANEL Routine 05/16/2025 3:02 PM EDT Stage 3b chronic kidney disease (HCC) 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) Urostomy present (HCC) Rectal cancer (HCC) Chronic metabolic acidosis History of total cystectomy Gout, not otherwise specified Electrolyte imbalance Bilateral hydronephrosis Acute nontraumatic kidney injury, not otherwise specified (HCC) documented in this encounter Results * (ABNORMAL) Urinalysis Reflex Microscopic (05/16/2025 3:13 PM EDT) Specific [place] 1.010 1.003 - 1.030 [facility] pH Urine 7.5 5.0 - 8.0 pH [facility] LEUKOCYTES, URINE Large(A) Negative [facility] Nitrite, Urine Positive(A) Negative [facility] Protein, Urine 30(A) <=Trace mg/dL [facility] Glucose Urine Negative Negative mg/dL [facility] Ketones, Urine Negative Negative mg/dL [facility] Urobilinogen Urine 0.2 0.2 - 1.0 mg/dL [facility] Bilirubin Urine Negative Negative [facility] Blood Urine Small(A) Negative [facility] RBC, Urine 8.0(H) 0 - 4 /HPF [facility] WBC, Urine 73.1(H) 0 - 4 /HPF [facility] Squamous Epithelial, Urine 12 0 - 60 /LPF [facility] Bacteria, Urine Many(A) Negative /HPF [facility] Hyaline Casts, UA 5.0(H) 0 - 3 /LPF [facility] 05/16/2025 3:13 PM EDT 05/16/2025 3:26 PM EDT us Jean Rosas MD LAB URINE ORDERABLES Final Re sult Performing Organization Address City/State/[facility] Co de Phone Number [facility] [address] [place] [address] * Uric Acid, urine (05/16/2025 3:13 PM EDT) Uric Acid, Ur 11.0 mg/dL [facility] Urine specimen (specimen) Urine specimen obtained by clean catch procedure / Unknown 05/16/2025 3:13 PM EDT 05/16/2025 3:26 PM EDT us Jean Rosas MD LAB URINE ORDERABLES Final Re sult Performing Organization Address [facility] Co de Phone Number [facility] [address] [place] [address] * Calcium, urine, random (05/16/2025 3:13 PM EDT) Calcium, Ur <5.0 mg/dL [facility] Urine specimen (specimen) Urine specimen obtained by clean catch procedure / Unknown 05/16/2025 3:13 PM EDT 05/16/2025 3:26 PM EDT us Jean Rosas MD LAB URINE ORDERABLES Final Re sult Performing Organization Address [facility] Co de Phone Number [facility] [address] [place] [address] * (ABNORMAL) Protein, Total, Random Urine w/Creatinine (Protein/Creat Ratio) (05/16/2025 3:13 PM EDT) Protein, Ur 42 mg/dL [facility] Urine Protein/Creati nine Ratio 0.69(H) <=0.20 mg/mg creat [facility] Creatinine, Urine 61.0 mg/dL [facility] Urine specimen (specimen) Urine specimen obtained by clean catch procedure / Unknown 05/16/2025 3:13 PM EDT 05/16/2025 3:26 PM EDT Jean Rosas MD LAB URINE ORDERABLES Final Re sult Performing Organization Address [facility]/ZIP Co de Phone Number [facility] [address] [place] [address] * Iron Panel (Fe, TIBC, TSAT) (05/16/2025 3:02 PM EDT) Iron 115 50 - 160 mcg/dL [facility] TIBC 386 250 - 450 mcg/dL [facility] Iron Saturation (TSat) 30 20 - 50 % [facility] 05/16/2025 3:02 PM EDT 05/16/2025 3:26 PM EDT Jean Rosas MD LAB BLOOD ORDERABLES Final Re sult Performing Organization Address [facility]/ZIP Co de Phone Number [facility] [address] [place] [address] * (ABNORMAL) CBC auto differential (05/16/2025 3:02 PM EDT) WBC 5.4 4.8 - 10.8 K/[facility] RBC 4.00 3.80 - 5.50 M/[facility] Hgb 12.4 12.0 - 18.0 g/dL [facility] Hematocrit 38.5 36.0 - 48.0 % [facility] MCV 96.0 79.0 - 98.0 FL [facility] MCH 30.9 27.0 - 32.0 pcg [facility] MCHC 32.2 32.0 - 37.0 g/dL [facility] RDW 12.8 11.0 - 15.0 % [facility] Platelets 196 130 - 400 K/[facility] MPV 9.5 7.0 - 11.0 FL [facility] nRBC Count 0.0 <1.0 % [facility] NRBC Absolute 0.00 <0.10 K/[facility] Bands Relative 74.3 % [facility] Lymphocyte Realative Percent 9.9 % [facility] Monocyte Relative Percent 10.4 % [facility] Eosinophil Relative Percent 4.1 % [facility] Basophils Relative Diff 0.7 % [facility] Immature Granulocytes 0.6 % [facility] Neutrophils Absolute 3.99 1.50 - 7.00 K/[facility] Lymphocytes Absolute 0.53(L) 1.00 - 5.00 K/[facility] Monocytes Absolute 0.56 0.20 - 1.00 [facility] Eosinophil Absolute 0.22 0.00 - 0.50 [facility] Basophil ABS 0.04 0.00 - 0.20 [facility] Immature Grans (Absolute) 0.03 0.00 - 0.03 K/[facility] 05/16/2025 3:02 PM EDT 05/16/2025 3:25 PM EDT us Jean Rosas MD LAB BLOOD ORDERABLES Final Re sult SHIRA [facility] [address] [place] [address] * (ABNORMAL) Vitamin D 25 Hydroxy (05/16/2025 3:02 PM EDT) Pathologist [facility] Vitamin D, 25-OH, Total 23.6(L) 30.0 - 80.0 ng/mL [facility] Blood specimen (specimen) Venous blood / Unknown 05/16/2025 3:02 PM EDT 05/16/2025 3:25 PM EDT us Jean Rosas MD LAB BLOOD ORDERABLES Final Re sult Performing Organization Address [facility]/ZIP Co de Phone Number [facility] [address] [place] [address] * (ABNORMAL) PTH, Intact (05/16/2025 3:02 PM EDT) [facility] PTH 97.6(H) 18.5 - 88.0 pcg/mL [facility] Blood specimen (specimen) Venous blood / Unknown 05/16/2025 3:02 PM EDT 05/16/2025 3:25 PM EDT us Jean Rosas MD LAB BLOOD ORDERABLES Final Re sult Performing Organization Address [facility] Co de Phone Number [facility] [address] [place] [address] * (ABNORMAL) Phosphorus (05/16/2025 3:02 PM EDT) [facility] Phosphorus 2.0(L) 2.5 - 4.5 mg/dL [facility] Blood specimen (specimen) Venous blood / Unknown 05/16/2025 3:02 PM EDT 05/16/2025 3:25 PM EDT us Jean Rosas MD LAB BLOOD ORDERABLES Final Re sult Performing Organization Address [facility]/ZIP Co de Phone Number [facility] [address] [place] [address] * Magnesium (05/16/2025 3:02 PM EDT) [facility] Magnesium 2.4 1.9 - 2.6 mg/dL [facility] Blood specimen (specimen) Venous blood / Unknown 05/16/2025 3:02 PM EDT 05/16/2025 3:25 PM EDT Jean Rosas MD LAB BLOOD ORDERABLES Final Re sult Performing Organization Address [facility] Co de Phone Number [facility] [address] [place] [address] * (ABNORMAL) Uric Acid (05/16/2025 3:02 PM EDT) [facility] Uric Acid 3.3(L) 3.7 - 9.2 mg/dL [facility] Blood specimen (specimen) Venous blood / Unknown 05/16/2025 3:02 PM EDT 05/16/2025 3:25 PM EDT us Jean Rosas MD LAB BLOOD ORDERABLES Final Re sult Performing Organization Address [facility] de Phone Number [facility] [address] [place] [address] * (ABNORMAL) Comprehensive Metabolic Panel (05/16/2025 3:02 PM EDT) [facility] Sodium 137 133 - 145 mmol/L [facility] Potassium 6.3(HH) 3.5 - 5.5 mmol/L [facility] Chloride 105 96 - 110 mmol/L [facility] Bicarbonate (CO2) 30 21 - 32 mmol/L [facility] Anion Gap 2(L) 3 - 11 [facility] Glucose 81 70 - 100 mg/dL [facility] BUN 30(H) 5 - 25 mg/dL [facility] Creatinine Serum 1.83(H) 0.50 - 1.30 mg/dL [facility] eGFR 30(L) >=60 mL/min/1. 73m2 [facility] Comment: For non-binary individuals or unknown sex, the equation for female sex is used to calculate the estimated glomerular filtration rate (eGFR). Calculation based on the Chronic Kidney Disease Epidemiology Collaboration (CKD- EPI) equation refit without adjustment for race. BUN/Creatinine Ratio 16.4 [facility] Calcium 9.1 8.5 - 10.5 mg/dL [facility] AST (SGOT) 25 10 - 42 unit/L [facility] ALT (SGPT) 11 10 - 60 unit/L [facility] Alkaline Phosphatase 102 42 - 121 unit/L [facility] Total Protein 7.1 6.0 - 8.0 g/dL [facility] Albumin 3.5 3.2 - 5.0 g/dL [facility] Total Bilirubin 0.4 0.0 - 1.4 mg/dL [facility] Blood specimen (specimen) Venous blood / Unknown 05/16/2025 3:02 PM EDT 05/16/2025 3:25 PM EDT us Jean Rosas MD LAB BLOOD ORDERABLES Final Re sult SHIRA [facility] [address] [place] [address] documented in this encounter Visit Diagnoses Diagnosis Stage 3b chronic kidney disease (HCC) 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
--- OUTSIDE RECORDS SUMMARY | 2025-05-28 11:04 | XMS_ITS ---
Author Name [facility] Organization Unknown Results Test Name/Text Value Interpretation Date Range Source eGFRcr SerPlBld CKD-EPI 2020 44.0 mL/min/1.73m2 03/15/2025 [facility] Creat Bld-mCnc 1.6 mg/dL 03/15/2025 [facility] HDLC SERPL-MCNC 63.0 mg/dL Normal 08/09/2024 32 - 70 [facility] LDLc SerPl Calc-mCnc 93.0 mg/dL Normal 08/09/2024 50 - 13 0 [facility] CHOLEST SERPL-MCNC 176.0 mg/dL Normal 08/09/2024 0 - 200 [facility] TRIGL SERPL-MCNC 101.0 mg/dL Normal 08/09/2024 - 150 [facility] VIT B12 SER MCNC 297.0 pg/mL Normal 08/09/2024 180 - 914 [facility] Hgb A1c MFr Bld HPLC 5.4 % Normal 08/10/2024 - 5.7 [facility] History of Medication Use Medication Directions Dispensed Refills Start Date End Date Stat iopamidoL (ISOVUE-370) 370 mg iodine /mL (76 %) injection 65 mL 65 mL, intravenous, Once in imaging, Starting on Thalia 03/15/25 at 1034, For 1 dose 03/15/2025 5 completed sodium chloride 0.9 % flush 10 mL 10 mL, intravenous, Once, On Thalia 03/15/25 at 1100, For 1 dose 03/15/2025 5 completed sodium chloride 0.9 % intravenous solution 50 mL 50 mL, intravenous, Once in imaging, Starting on Thalia 03/15/25 at 1034, For 1 dose 03/15/2025 5 completed rosuvastatin (CRESTOR) 10 mg tablet TAKE ( 1/2 TABLET ) BY MOUTH DAILY. 01/24/2025 active pregabalin (LYRICA) 150 mg capsule 12/01/2024 active guaiFENesin (HUMIBID 3) 400 mg tablet Take 1 tablet (400 mg total) by mouth every 6 (six) hours if needed for cough. 06/08/2024 active nirmatrelvir-ritonavi r (Paxlovid) 150-100 mg tablet therapy pack Take 1 Dose by mouth 2 (two) times a day. 06/08/2024 active cyanocobalamin (VITAMIN B-12) 1,000 mcg/mL injection Inject 1 mL (1,000 mcg total) into the shoulder, thigh, or buttocks every 30 (thirty) days. 02/18/2024 active fluticasone propionate (FLONASE) 50 mcg/actuation nasal spray SPRAY ( 2 SPRAYS ) INTO BOTH NOSTRILS DAILY. 06/29/2023 active ondansetron (ZOFRAN) 8 MG tablet Take 1 tablet (8 mg total) by mouth every 8 (eight) hours as needed for nausea. 06/11/2023 active potassium citrate-citric acid (POLYCITRA K) 1,100-334 mg/5 mL solution 3 times daily. 08/10/2022 active clonazePAM (KlonoPIN) 0.5 mg tablet Take 2 tablets (1 mg total) by mouth at bedtime. 02/03/2018 active clonazePAM (KLONOPIN) 0.5 MG tablet 02/03/2018 active baclofen (LIORESAL) 20 MG tablet 01/22/2018 active rosuvastatin (CRESTOR) tablet 10 mg 01/22/2018 active carbidopa-levodopa (SINEMET) 25-100 mg per tablet Take 1 tablet by mouth 3 (three) times a day. 05/12/2017 active baclofen (LIORESAL) 20 mg tablet Take 1 tablet (20 mg total) by mouth 2 (two) times a day. 09/01/2016 active allopurinol (ZYLOPRIM) 100 MG tablet Take 1 tablet (100 mg total) by mouth daily. 4 aborted Enoxaparin Sodium (LOVENOX SC) Inject under the skin. 4 aborted cholecalciferol (VITAMIN D-3) 125 mcg (5,000 unit) capsule Take 125 mcg by mouth 1 (one) time each day. active Cholecalciferol 125 MCG (5000 UT) capsule Take 125 mcg by mouth. active cyanocobalamin (VITAMIN B12) 1000 MCG/ML injection Inject 1 mL (1,000 mcg total) into the muscle once. active cyanocobalamin (VITAMIN B12) 1000 MCG/ML injection Inject 1 mL (1,000 mcg total) into the muscle once. active docusate sodium (COLACE) 100 mg capsule Take 1 capsule (100 mg total) by mouth 2 (two) times a day. active febuxostat (ULORIC) 80 mg tablet Take 40 mg by mouth 1 (one) time each day. active Allergies Allergen Reaction Severity Comment Documented Date Source Statu s SIMVASTATIN OTHER Hand soreness,Stiffness 02/18/2011 [facility] active Problems Problem Status Onset Date Problem Type Date of Resolution Source History of colorectal cancer active EncounterDiagnosisAct C T_[facility] Anemia active 2018-04-07 ProblemAct [facility] Parastomal hernia active 2021-12-13 ProblemAct [facility] Chronic headache active 2020-11-23 ProblemAct C [facility] COVID active 2024-06-08 ProblemAct [facility] Vitamin D deficiency active 2016-05-04 ProblemAct [facility] Bladder carcinoma ([facility] V24, [facility] V28) active EncounterDiagnosisAct CT_[facility] BK Tremor active 2017-06-08 ProblemAct [facility] Erectile dysfunction active 2014-01-02 ProblemAct [facility] Pain in left hip active EncounterDiagnosisAct [facility] Muscle cramps active 2015-09-13 ProblemAct [facility] Transitional cell carcinoma of ureter ([facility] V24, [facility] V28) active 2021-01-31 ProblemAct [facility] B12 deficiency active 2012-12-05 Problem[address] [facility] Chronic kidney disease, stage III (moderate) ([facility] V24, [facility] V28) active 2010-12-25 ProblemAct [facility] Tinnitus active 2015-11-27 ProblemAct [facility] Neuropathy active 2013-01-03 ProblemAct [facility] Elevated uric acid in blood active 2018-05-04 ProblemAct [facility] Hyperlipidemia active 2011-10-21 Problem[address] [facility]_ [facility] Rectal adenocarcinoma (CMS/HCC V24, CMS/HCC V28) active 2023-04-19 ProblemAct [facility] Nephrolithiasis active 2009-03-[address] [facility] Back pain, chronic active 2015-09-13 ProblemAct [facility]onephrosis [facility] of [facility] active ProblemAct [facility] Ureter cancer active ProblemAct [facility] Parkinsonian syndrome active 2024-08-09 ProblemAct [facility] Hyperlipidemia active 2024-08-09 ProblemAct [facility] Ileostomy status active ProblemAct [facility] History of anemia due to vitamin B12 deficiency active 2024-08-09 ProblemAct [facility] History of rectal cancer active 2023-06-11 ProblemAct [facility] Immunizations Vaccine Date Source Lot Number Status Influenza Quad (Flublok) 0.5 mL >18 Yrs (RIV4) 07/26/2023 [facility] completed Influenza, Unspecified 07/26/2023 [facility] co mpleted Pneumococcal conjugate 20 va lent (Prevnar 20, PCV 20) 2mo and older [id number] comple moraima Td (Adult), Unspecified formulation 11/03/2022 [facility] [id number] completed Td Tetanus diptheria (Tdvax) 7yo and older 11/03/2022 [facility] [id number] completed Influenza Quad (Flublok) 0.5 mL >18 Yrs (RIV4) 07/20/2022 [facility] completed Influenza, Unspecified 07/20/2022 [facility] co mpleted [place] SARS-CoV-2 COVID-19, mRNA, LNP-S, preservative free 03/26/2022 [facility] completed Influenza Trivalent (Fluzone /Afluria) 5.0mL Multi-dose Vial 07/02/2020 [facility] [id number] completed Influenza, Unspecified 07/02/2020 [facility] co mpleted Influenza Trivalent (Fluzone /Afluria) 5.0mL Multi-dose Vial 07/16/2019 [facility] [id number] completed Influenza, Unspecified 07/16/2019 [facility] co mpleted Influenza Trivalent (Fluzone High Dose) 0.7 mL (65yrs &>) 07/10/2019 [facility] completed Influenza Trivalent (Fluzone /Afluria) 5.0mL Multi-dose Vial 07/10/2019 [facility] completed Influenza, Unspecified 07/10/2019 [facility] co mpleted Influenza Trivalent (Fluzone High Dose) 0.7 mL (65yrs &>) 07/11/2018 [facility] completed Influenza Trivalent (Fluzone /Afluria) 5.0mL Multi-dose Vial 07/11/2018 [facility] completed Influenza, Unspecified 07/11/2018 [facility] co mpleted Influenza Trivalent (Fluzone /Afluria) 5.0mL Multi-dose Vial 06/30/2018 [facility] [id number] completed Influenza, Unspecified 06/30/2018 [facility] co mpleted Influenza Trivalent (Fluzone High Dose) 0.7 mL (65yrs &>) 07/26/2017 [facility] completed Influenza Trivalent (Fluzone /Afluria) 5.0mL Multi-dose Vial 07/26/2017 [facility] completed Influenza, Unspecified 07/26/2017 [facility] co mpleted Influenza Trivalent (Fluzone /Afluria) 5.0mL Multi-dose Vial 07/15/2017 [facility] [id number] completed Influenza, Unspecified 07/15/2017 [facility] co mpleted Zoster Live 06/08/2017 [facility] [id number] completed Influenza Trivalent (Fluzone /Afluria) 5.0mL Multi-dose Vial 06/25/2016 [facility] completed Influenza, Unspecified 06/25/2016 [facility] co mpleted Influenza Trivalent (Fluzone /Afluria) 5.0mL Multi-dose Vial 05/31/2015 [facility] completed Influenza, Unspecified 05/31/2015 [facility] co mpleted Influenza Trivalent (Fluzone /Afluria) 5.0mL Multi-dose Vial 07/21/2014 [facility] completed Influenza, Unspecified 07/21/2014 [facility] co mpleted Influenza Trivalent (Fluzone /Afluria) 5.0mL Multi-dose Vial 09/14/2012 [facility] [id number] completed Influenza, Unspecified 09/14/2012 [facility] co mpleted Influenza Trivalent (Fluzone /Afluria) 5.0mL Multi-dose Vial 07/03/2011 [facility] [id number] completed Influenza, Unspecified 07/03/2011 [facility] co mpleted Tdap Tetanus diptheria acell ular pertussis (Boostrix; Adacel) 7yo and older 02/18/2011 [facility] [id number] completed Influenza Trivalent (Fluzone /Afluria) 5.0mL Multi-dose Vial 07/09/2010 [facility] [id number] completed Influenza, Unspecified 07/09/2010 [facility] co mpleted H1N1 Inj Preservative Free 09/09/2009 [id number] completed Influenza Trivalent (Fluzone /Afluria) 5.0mL Multi-dose Vial 07/08/2009 [facility] completed Influenza, Unspecified 07/08/2009 [facility] co mpleted Encounters Encounter Type Encounter Reason Primary Diagnosis Location Date Ambulatory Pain in left hip Pain in left hip [facility] 03/15/2025 Ambulatory Encounter for genera l adult medical examination without abnormal findings Encounter for general adult medical examination without abnormal findings [facility] 08/09/2024 Ambulatory Encounter for genera l adult medical examination without abnormal findings Encounter for general adult medical examination without abnormal findings [facility] 08/09/2024 Care Team Organization Name Specialty Phone Email Start Date End Da te [facility] HONORIOKEITH SOLOMON Primary Care 03/15/2025 [facility] Primary Care 09/04/2024 [facility] Primary Care 09/01/2024 [facility] Primary Care 2023 [facility] Primary Care 08/10/2024 05/08/2025 [facility] Lexie Martinez Primary Care 10/06/20232023 [facility] Keisha Panda APRN Primary Care 07/01/2023 [facility] Jose Scott Primary Care 04/02/202305/25 [facility] KAILA EDGE Primary Care 11/02/20222023 [facility] PETAR Granda Primary Care 09/01/202205/25
== END 2025-05-28 10:52 | disposition home or self-care (01) ==
LOC: HO.HSM 10:24
PROVIDERS: PCP Internal Medicine; Visit Provider Psychiatry & Neurology Neurology
DX: R25.1 Tremor, unspecified (principal); G89.4 Chronic pain syndrome
CPT/HCPCS: 99214

== ENCOUNTER → 2025-05-28 10:24 | Outpatient (BNVA) | payer MEDICARE, SELFPAY | PROVIDERS: PCP Internal Medicine; Visit Provider Psychiatry & Neurology Neurology | DX: G89.4 Chronic pain syndrome (principal); R25.1 Tremor, unspecified | CPT/HCPCS: 99212 ==